=== PATIENT | female | born 1940 | race Caucasian/White ===

== ENCOUNTER 2018-04-10 20:58 | Emergency (ER) | payer MEDICARE, OTHER, SELFPAY ==
[2018-04-10 21:01] VITALS: BP 178/81; PULSE 74; RESP 14; TEMP 36.5; O2SAT 97; BMI 26.5
--- NOTE | 2018-04-10 21:08 | DI.CT.S_ITS ---
PROCEDURE: CT HEAD/BRAIN WO CON INDICATIONS: fall, hit right head: on coumadin. TECHNIQUE: Noncontrast 4.5 mm thick angled axial sections acquired from the foramen magnum to the vertex, with coronal and sagittal reformats. For radiation dose reduction, the following was used: automated exposure control, adjustment of mA and/or kV according to patient size. COMPARISON: None. FINDINGS: Image quality: Excellent. CSF spaces: Basal cisterns are patent. No extra-axial fluid collections. The ventricles are symmetric in size and shape. Brain: No intracranial bleeds or masses. There is cerebral volume loss for age, with resultant ventricular and sulcal prominence. There are periventricular and deep white matter chronic small vessel ischemic changes. There is intracranial internal carotid artery atherosclerosis. Skull and face: Calvarium and visualized facial bones appear intact, without suspicious lesions. Sinuses: Visualized sinuses and mastoids are clear. IMPRESSION: No acute intracranial abnormality. Dictated by: Moo Evans M.D. on 04/10/2018 at 21:31 Approved by: Moo Evans M.D. on 04/10/2018 at 21:32
[2018-04-10] MEDS: TET,DIPH,PERTUSS(ACELL),VAC/PF 0.5 ML SYRINGE IM (21:23)
--- NOTE | 2018-04-10 21:38 | ED_ITS ---
HPI - Head Injury General Chief complaint: Head Injury Stated complaint: FELL DOWN BLACK RIGHT EYE Time Seen by Provider: 04/10/18 21:39 Source: patient Mode of arrival: ambulatory Limitations: no limitations History of Present Illness HPI Narrative: The patient takes Coumadin due to AFib. She was doing gardening about 5:30 p.m., she tripped and fell. She struck her right face on concrete. She was wearing glasses. She has a right periorbital laceration consistent with the lines of her glasses. She also has a right black eye. She has no vision loss or changes. She denies headache, confusion or dizziness. She denies neck pain. She has no peripheral weakness or numbness. She is here due to ongoing bleeding from the laceration site. Related Data Home Medications Medication Instructions Recorded Confirmed warfarin [Coumadin] 7.5 mg PO QDAY #0 11/29/12 03/13/18 [COQ10] #0 02/12/17 03/13/18 calcium carbonate 650 mg PO #0 02/12/17 03/13/18 docusate sodium 100 mg PO BIDP PRN #0 02/12/17 03/13/18 glucosamine sulfate-msm 1 ea PO #0 02/12/17 03/13/18 amlodipine 5 mg-benazepril 10 mg 1 cap PO DAILY 03/13/18 03/13/18 capsule atorvastatin 20 mg tablet 20 mg PO DAILY 03/13/18 03/13/18 carvedilol 12.5 mg tablet 12.5 mg PO BID 03/13/18 03/13/18 hydrocodone 5 mg-acetaminophen 325 1 tab PO ONCE PRN 03/13/18 03/13/18 mg tablet Previous Rx's Medication Instructions Recorded methylprednisolone 4 mg tablets in See Label Instructions PO PER PKG 03/13/18 a dose pack DIR #21 each Allergies Allergy/AdvReac Type Severity Reaction Status Date / Time No Known Drug Allergies Allergy Verified 04/10/18 21:03 Review of Systems Review of Systems All systems reviewed & are unremarkable except as noted in HPI and below Constitutional Denies fever(s), Denies frequent falls, Denies lethargy and Denies weakness Eyes Reports as per HPI, Denies change in vision, Denies eye discharge, Denies irritation and Denies loss of vision ENT Ears, Nose, Mouth, and Throat: Denies change in voice, Denies neck pain and Denies sore throat Cardiovascular Denies chest pain, Denies irregular heart rhythm, Denies lightheadedness, Denies palpitations, Denies dyspnea, Denies dyspnea on exertion and Denies orthopnea Respiratory Denies cough, Denies dyspnea, Denies dyspnea on exertion and Denies wheezing Gastrointestinal Gastrointestinal: Denies nausea and Denies vomiting Musculoskeletal Denies limited range of motion and Denies neck pain Integumentary/Breasts Denies rash and Reports wounds Neurologic Denies frequent falls, Denies loss of vision and Denies weakness Endocrine Denies palpitations Allergic/Immunologic Denies wheezing [facility] Medical History Atrial fibrillation (Acute) Pacemaker (Acute) Social History Smoking Status: Never smoker Exam Initial Vital Signs Initial Vital Signs: Vital Signs Temperature 97.7 F 04/10/18 21:01 Pulse Rate 74 04/10/18 21:01 Respiratory Rate 14 04/10/18 21:01 Blood Pressure 178/81 H 04/10/18 21:01 Pulse Oximetry 97 04/10/18 21:01 Const General: cooperative, healthy appearing and comfortable [facility] Head: normocephalic and other (3 cm left brow/periorbital laceration) Ears: external ears normal and TM's normal bilaterally Nose: external nose normal and No nasal discharge Face and sinus: sinuses nontender, face symmetric, no sinus tenderness and No dry mucous membranes Mouth: oral mucosae normal and moist mucous membranes Teeth and gingiva: dentition normal Throat: tonsils normal and uvula midline Eyes General: appearance normal, both eyes and all related structures Eyelids: eyelids normal Conjunctivae: conjunctivae normal Sclera: sclerae normal Pupils: PERRL EOM: EOM intact bilaterally Neck Neck: normal visual inspection, trachea midline, No lymphadenopathy, No midline deformity and No JVD Lymphatic: No lymphedema Resp Effort & Inspection: normal respiratory effort, able to speak in complete sentences, no respiratory distress and no use of accessory muscles Auscultation: clear to auscultation bilaterally, no rales, no rhonchi and no wheezes Cardio Rate: regular rate Rhythm: regular rhythm Heart Sounds: S1 normal, S2 normal, no click, no gallops, no murmurs and no rubs Pulses: normal peripheral pulses Skin General: no rashes or lesions noted, No jaundice and No petechiae Rashes: no rashes Neuro General: alert, oriented x3 and no focal motor deficits Speech: speech normal Extrem General: normal to inspection, full ROM and other (No trauma.) Procedures Laceration Repair Laceration 1: Technique: other (Dermabond) Technique: other Course Orders Ordered: ED Orders 04/10/18 21:08 CT head/brain wo con Stat 04/10/18 21:30 Basic Metabolic Panel Stat Complete Blood Count MAN DIFF Stat Prothrombin Time INR Stat Discontinued Medications Diphtheria/Tetanus/Acell Pertussis (Adacel) 0.5 ml IM .ONCE ONE Stop: 04/10/18 21:09 Last Admin: 04/10/18 21:23 Dose: 0.5 ml Vital Signs - 8 hr 04/10/18 21:01 Temperature 97.7 F Pulse Rate 74 Respiratory Rate 14 Blood Pressure 178/81 H Pulse Oximetry 97 MDM - Head Injury Medical Records Attestation: I reviewed the patient's medical records. Lab Data Attestation: I reviewed the patient's lab results. Result diagrams: 04/10/18 21:30 04/10/18 21:30 Lab Results 04/10/18 04/10/18 04/10/18 Range/Units 21:30 21:30 21:30 WBC 8.1 (4.5-11.0) X10^3/uL RBC 4.06 (4.0-5.2) X10^6/uL Hgb 12.2 (12.0-16.0) g/dL Hct 36.6 (36-46) % MCV 90.2 (80-100) fL MCH 30.1 (26-34) PG MCHC 33.4 (30-36) % RDW 15.1 H (11.6-14.8) % Plt Count 209 (150-400) X10^3/uL Total Counted 100 Seg Neutrophils % 62.0 (38-70) % Lymphocytes % (Manual) 25.0 (25-45) % Monocytes % (Manual) 8.0 (2-11) % Eosinophils % (Manual) 4.0 (2-4) % Basophils % (Manual) 1.0 (0-1) % Neutrophils # (Manual) 5022 (5559-7589) /uL RBC Morphology Normal morphology PT 36.2 H (10.1-12.7) SECONDS INR 3.4 H (0.9-1.3) Sodium 142 (137-145) mmol/L Potassium 3.6 (3.4-5.1) mmol/L Chloride 102 (98-107) mmol/L Carbon Dioxide 27 (22-32) mmol/L BUN 22 H (7-17) mg/dL Creatinine 0.60 (0.52-1.04) mg/dL Estimated GFR > 60.0 (>60) mL/min BUN/Creatinine Ratio 36.7 H (6-22) Glucose 138 H (80-110) mg/dL Calcium 9.2 (8.4-10.2) mg/dL Imaging Data CT scan - head: Radiologist's impression: No acute intracranial injury. Discharge Plan Departure Patient Disposition: Home, Self-Care Clinical Impression: Laceration of brow without complication, Anticoagulated on Coumadin Instructions: DI for Laceration Repair With Dermabond Activity Restrictions/Additional Instructions: The glue should come off in 5-7 days. When the edges start peeling up, pull the glue off. Do not take her Coumadin dose tonight, have your INR rechecked with your doctor in about 3 days. Return here as needed. Prescriptions: No Action atorvastatin 20 mg tablet 20 mg PO DAILY RF: 0 carvedilol 12.5 mg tablet 12.5 mg PO BID RF: 0 hydrocodone-acetaminophen 5-325 mg tablet 1 tab PO ONCE PRNRF: 0 amlodipine-benazepril 5-10 mg capsule 1 cap PO DAILY RF: 0 methylprednisolone 4 mg tablets,dose pack See Label Instructions PO PER PKG DIR Qty: 21 RF: 0 warfarin [Coumadin] 7.5 MG tablet 7.5 mg PO QDAY Qty: 0 RF: 0 calcium carbonate 650 MG tablet 650 mg PO Qty: 0 RF: 0 docusate sodium 100 MG capsule 100 mg PO BIDP PRNQty: 0 RF: 0 glucosamine sulfate-msm 1 EACH capsule 1 ea PO Qty: 0 RF: 0 [COQ10] Qty: 0 RF: 0
[2018-04-10 21:42] LABS: Hematocrit 36.6 % (36-46); Hemoglobin 12.2 g/dL (12.0-16.0); Mean Corpuscular HGB Conc 33.4 % (30-36); Mean Corpuscular Hemoglobin 30.1 PG (26-34); Mean Corpuscular Volume 90.2 fL (80-100); Platelet Count 209 X10^3/uL (150-400); Red Blood Cell Count 4.06 X10^6/uL (4.0-5.2); Red Cell Distribution Width 15.1 % (11.6-14.8); White Blood Cell Count 8.1 X10^3/uL (4.5-11.0)
[2018-04-10 21:43] LABS: INR 3.4 (0.9-1.3); Prothrombin Time 36.2 SECONDS (10.1-12.7)
[2018-04-10 21:48] LABS: BUN Creatinine Ratio 36.7 (6-22); Blood Urea Nitrogen 22 mg/dL (7-17); Calcium 9.2 mg/dL (8.4-10.2); Carbon Dioxide 27 mmol/L (22-32); Chloride 102 mmol/L (98-107); Estimated Glomerular Filt Rate > 60.0 mL/min (>60); Glucose 138 mg/dL (80-110); HEMOLYSIS < 15 (0-50); Potassium 3.6 mmol/L (3.4-5.1); Sodium 142 mmol/L (137-145)
[2018-04-10 21:52] LABS: Neutrophils Absolute Manual 5022 /uL (3000-5900); RBC Morphology Normal Morphology; Total Cells Counted 100
[2018-04-10 22:00] VITALS: BP 161/71; PULSE 98; RESP 18; O2SAT 96
== END 2018-04-10 22:38 | disposition home or self-care (01) ==
PROVIDERS: Emergency Provider Emergency Medicine; PCP Physician Assistant
DX: S01.112A Laceration without foreign body of left eyelid and periocular area, initial encounter (principal); W01.0XXA Fall on same level from slipping, tripping and stumbling without subsequent striking against object, initial encounter; Z79.01 Long term (current) use of anticoagulants
CPT/HCPCS: 36415; 70450; 80048; 85025; 85610; 99282; 99284; 90715

== ENCOUNTER → 2020-12-09 15:07 | Outpatient (ROUT) | payer MEDICARE, OTHER, SELFPAY ==
[2020-12-09 15:30] LABS: Add Manual Diff / Slide Review NO; Basophils Absolute Auto 100 /uL (0-100); Basophils Percent Auto 1.2 % (0-2); Eosinophils Absolute Auto 200 /uL (0-450); Eosinophils Percent Auto 3.3 % (2-4); Hematocrit 38.3 % (36-46); Hemoglobin 12.4 g/dL (12.0-16.0); Lymphocytes Absolute Auto 1400 /uL (1100-4500); Lymphocytes Percent Auto 19.1 % (25-40); Mean Corpuscular HGB Conc 32.4 % (30-36); Mean Corpuscular Volume 89.6 fL (80-100); Monocytes Absolute Auto 700 /uL (0-900); Monocytes Percent Auto 9.6 % (3-14); Neutrophils Absolute Auto 4800 /uL (1500-7000); Neutrophils Percent Auto 66.8 % (50-75); Platelet Count 221 X10^3/uL (150-400); Red Blood Cell Count 4.27 X10^6/uL (4.0-5.2); Red Cell Distribution Width 14.4 % (11.6-14.8); White Blood Cell Count 7.1 X10^3/uL (4.5-11.0)
[2020-12-09 15:36] LABS: Alanine Aminotransferase 23 IU/L (<35); Albumin 4.2 g/dL (3.5-5.0); Albumin Globulin Ratio 1.6 (1.0-2.8); Alkaline Phosphatase 101 U/L (38-126); Aspartate Aminotransferase 28 IU/L (14-36); BUN Creatinine Ratio 35.7 (6-22); Bilirubin Total 0.3 mg/dL (0.2-1.3); Blood Urea Nitrogen 20 mg/dL (7-17); Calcium 9.6 mg/dL (8.4-10.2); Carbon Dioxide 31 mmol/L (22-32); Chloride 100 mmol/L (98-107); Cholesterol 130 mg/dL (140-199); Estimated Glomerular Filt Rate > 60.0 mL/min (>60); Globulin 2.7 g/dL (1.7-4.1); Glucose 128 mg/dL (80-110); HDL Cholesterol 52 mg/dL (40-60); HEMOLYSIS < 15 (0-50); LDL Cholesterol Calculated 62 mg/dL (<100); Magnesium 2.1 mg/dL (1.6-2.3); Potassium 4.6 mmol/L (3.4-5.1); Sodium 136 mmol/L (137-145); Total Protein 6.9 g/dL (6.3-8.2); Triglycerides 81 mg/dL (35-150)
[2020-12-11 09:54] LABS: Hemoglobin A1C% w Est Avg Glu 6.5 % (4.0-6.0)
== END ==
PROVIDERS: PCP Physician Assistant; Visit Provider Physician Assistant
DX: I10 Essential (primary) hypertension (principal); E78.5 Hyperlipidemia, unspecified
CPT/HCPCS: 80053; 80061; 83036; 83735; 85025

== ENCOUNTER → 2020-12-25 15:22 | Outpatient (CLI) | payer MEDICARE, OTHER, SELFPAY ==
[2020-12-25] MEDS: COVID-19 VACC, Ad26(JANSSEN)/PF 0.5 ML IM (15:46)
== END ==
PROVIDERS: PCP Physician Assistant; Visit Provider Internal Medicine
DX: Z23 Encounter for immunization (principal)
CPT/HCPCS: 0031A; 91303

== ENCOUNTER 2023-01-19 05:59 | Inpatient (IN) | payer MEDICARE, OTHER, SELFPAY ==
[2023-01-19] VITALS (23 sets, daily range): BP systolic 143–200; BP diastolic 62–111; PULSE 68–92; RESP 16–20; TEMP 35.9–37.2; O2SAT 88–97; BMI 28.3
--- NOTE | 2023-01-19 06:12 | ED.GENADULT ---
HPI - General Adult <Kisha Chaudhry MD - Last Filed: 01/20/23 18:06> General Chief complaint: Abdominal Pain Stated complaint: abd. pain/hernia Time Seen by Provider: 01/19/23 06:04 History of Present Illness HPI narrative: 82-year-old woman with a history of atrial fibrillation anticoagulated on warfarin, hypertension, hyperlipidemia who has a long history of an abdominal wall hernia over the last couple of days it has been bothering her more. She notes that after eating [place] food a number of weeks ago it seemed to bother her but then improved. Last night she had some beef stew and after eating she is had increased pain, distention at the abdominal hernia site with nausea which is unusual for her. She describes no headache, fevers or chills. She has not had a bowel movement and describes not passing gas however she describes the absence of flatus as her baseline. Related Data Home Medications Medication Instructions Recorded Confirmed warfarin 7.5 mg tablet (Coumadin) 7.5 mg PO QDAY ##0 11/29/12 01/19/23 [COQ10] 100 mg PO DAILY ##0 02/12/17 01/19/23 calcium carbonate 650 mg calcium 650 mg PO PRN PRN Acid Reflux ##0 02/12/17 01/19/23 (1,625 mg) tablet docusate sodium 100 mg capsule 100 mg PO BIDP PRN Constipation ##0 02/12/17 01/19/23 glucosamine 1 ea PO DAILY ##0 02/12/17 01/19/23 sulfate-methylsulfonylmethane 250 mg-250 mg capsule amlodipine 5 mg-benazepril 10 mg 1 cap PO DAILY 03/13/18 01/19/23 capsule atorvastatin 20 mg tablet 20 mg PO DAILY 03/13/18 01/19/23 carvedilol 12.5 mg tablet 12.5 mg PO BID 03/13/18 01/19/23 benzonatate 100 mg capsule 100 mg PO TID PRN Cough 01/19/23 01/19/23 carboxymethylcellulose sodium 1 % 1 drp ophthalmic (eye) BID PRN Dry 01/19/23 01/19/23 eye liquid gel drops Eyes cholecalciferol (vitamin D3) 25 25 mcg PO DAILY 01/19/23 01/19/23 mcg (1,000 unit) tablet docusate sodium 100 mg capsule 300 mg PO BID 01/19/23 01/19/23 losartan 50 mg tablet 50 mg PO BID 01/19/23 01/19/23 omeprazole 20 mg PO DAILY 01/19/23 01/19/23 omeprazole magnesium 20 mg 20 mg PO DAILY 01/19/23 01/19/23 capsule,delayed release (Acid Cotton Stomper (omeprazole)) vitamins A,C,[id number] 4,296 1 cap PO BID 01/19/23 01/19/23 mcg-226 mg-90 mg capsule (PreserVision AREDS) Allergies Allergy/AdvReac Type Severity Reaction Status Date / Time No Known Drug Allergies Allergy Verified 04/10/18 21:03 Review of Systems <Kisha Chaudhry MD - Last Filed: 01/20/23 18:06> Review of Systems Narrative: Pertinent positive and negative findings as per HPI Patient History <Kisha Chaduhry MD - Last Filed: 01/20/23 18:06> Medical History Abdominal wall hernia Abnormal colonoscopy Adenomatous colon polyp Allergic rhinitis Atrial fibrillation Coronary atherosclerosis GERD (gastroesophageal reflux disease) Heart murmur Hiatal hernia Hypercoagulability due to atrial fibrillation Hyperlipidemia Hypertension Incisional hernia Pacemaker Prediabetes Primary osteoarthritis Subclinical hyperthyroidism Surgical History (Updated 01/19/23 @ 16:54 by Lorne Hdz DO) H/O heart surgery History of tonsillectomy and adenoidectomy Hx of cholecystectomy Family History Mother No pertinent past medical history Father No pertinent past medical history Social History household members: spouse Smoking Status: Never smoker Smoking Status: Never smoker alcohol intake frequency: 0-2 drinks per day Substance Use Type: does not use Exam <Kisha Chaudhry MD - Last Filed: 01/20/23 18:06> Initial Vital Signs Initial Vital Signs: Vital Signs Temperature 97.9 F 01/19/23 06:05 Pulse Rate 86 01/19/23 06:05 Respiratory Rate 18 01/19/23 06:05 Blood Pressure 182/89 H 01/19/23 06:05 Pulse Oximetry 97 01/19/23 06:05 Oxygen Delivery Method Room Air 01/19/23 06:05 General: no acute distress. Able to give a complete and coherent history. Well-nourished well-developed HEENT: Moist mucous membranes, normal sclera with reactive pupils, Respiratory: Lungs are clear to auscultation, no wheezing no rales no rhonchi. Full and symmetrical air movement Cardiac: Regular rate and rhythm no murmurs no bruits Abdomen: Large abdominal wall hernia with firm distention and inability to completely reduce the abdominal wall hernia. Decreased bowel tones. No rebound or guarding Skin: Warm and dry, no rashes Neurologic: Grossly neurologically intact with no obvious asymmetries or abnormalities Extremities: No trauma, well perfused Psych: Cooperative, appropriate insight and affect <Geoff Weber MD - Last Filed: 01/19/23 10:14> Initial Vital Signs Initial Vital Signs: Vital Signs Temperature 97.9 F 01/19/23 06:05 Pulse Rate 86 01/19/23 06:05 Respiratory Rate 18 01/19/23 06:05 Blood Pressure 182/89 H 01/19/23 06:05 Pulse Oximetry 97 01/19/23 06:05 Oxygen Delivery Method Room Air 01/19/23 06:05 Course <Kisha Chaudhry MD - Last Filed: 01/20/23 18:06> Orders Ordered: Acetaminophen (Acetaminophen 325 Mg Tablet) 650 mg PO Q6H PRN PRN Reason: Fever/Mild Pain (1-3) Amlodipine Besylate (Amlodipine 5 Mg Tablet) 5 mg PO DAILY [facility] Last Admin: 01/20/23 08:36 Dose: 5 mg Documented By: EM Artificial Tears (Polyvinyl Alcohol Drops) 1 drops EYE-BOTH BID PRN PRN Reason: Dry Eyes Atorvastatin Calcium (Atorvastatin 20 Mg Tablet) 20 mg PO DAILY [facility] Last Admin: 01/20/23 08:36 Dose: 20 mg Documented By: EM Benzonatate (Benzonatate 100 Mg Capsule) 100 mg PO TID PRN PRN Reason: Cough Carvedilol (Carvedilol 12.5 Mg Tablet) 12.5 mg PO BID [facility] Last Admin: 01/20/23 08:36 Dose: 12.5 mg Documented By: Admin: 01/19/23 20:18 Dose: 12.5 mg Documented By: [facility] Docusate Sodium (Docusate 100 Mg Capsule) 100 mg PO BID PRN PRN Reason: Constipation Docusate Sodium (Docusate 100 Mg Capsule) 300 mg PO BID [facility] Last Admin: 01/20/23 08:35 Dose: 300 mg Documented By: Admin: 01/19/23 20:17 Dose: 300 mg Documented By: [facility] Hydromorphone HCl (Hydromorphone 0.5 Mg Inj) 0.5 mg IV Q2H PRN PRN Reason: Pain, Severe (7-10) Last Admin: 01/20/23 17:26 Dose: 0.5 mg Documented By: MS Lutein (Vit C/E/Zn/Coppr/Lutein/Zeaxan Capsule) 1 cap PO BID [facility] Last Admin: 01/20/23 08:38 Dose: 1 cap Documented By: Admin: 01/19/23 20:17 Dose: 1 cap Documented By: NELLA Naloxone HCl (Naloxone 0.4 Mg/Ml Vial) 0.2 mg IV Q2MIN PRN PRN Reason: Opiate Reversal Ondansetron HCl (Ondansetron 4 Mg/2 Ml Inj) 4 mg IV Q8HR PRN PRN Reason: Nausea And Vomiting Last Admin: 01/20/23 17:26 Dose: 4 mg Documented By: MS Oxycodone HCl (Oxycodone Ir 5 Mg Tablet) 5 mg PO Q3H PRN PRN Reason: Pain, Moderate (4-6) Last Admin: 01/20/23 11:33 Dose: 5 mg Documented By: MS Pantoprazole Sodium (Pantoprazole Dr 40 Mg Tablet) 40 mg PO 0700 [facility] Last Admin: 01/20/23 06:36 Dose: 40 mg Documented By: NELLA Sodium Chloride (Sodium Chloride 0.9% Flush) 10 ml IV PRN PRN PRN Reason: Flush Last Admin: 01/20/23 17:27 Dose: 10 ml Documented By: MS Sodium Chloride (Sodium Chloride 0.9% Flush) 10 ml IV BID [facility] Last Admin: 01/20/23 08:38 Dose: 10 ml Documented By: Admin: 01/19/23 20:18 Dose: 10 ml Documented By: [facility] Vitamin D (Cholecalciferol (Vitamin D3) 1,000 Unit Tablet) 1,000 unit PO DAILY [facility] Last Admin: 01/20/23 08:36 Dose: 1,000 unit Documented By: EM Discontinued Medications Amlodipine Besylate (Amlodipine 5 Mg Tablet) 5 mg PO NOW ONE Stop: 01/19/23 09:53 Last Admin: 01/19/23 09:59 Dose: 5 mg Documented By: JOSE ALBERTO Carvedilol (Carvedilol 12.5 Mg Tablet) 12.5 mg PO NOW ONE Stop: 01/19/23 09:53 Last Admin: 01/19/23 09:59 Dose: 12.5 mg Documented By: JOSE ALBERTO Hydromorphone HCl (Hydromorphone 0.5 Mg Inj) 0.5 mg IV Q15MIN PRN PRN Reason: Pain, Last Admin: 01/19/23 06:34 Dose: 0.5 mg Documented By: DASH Sodium Chloride (Normal Saline 0.9%) 1,000 mls @ 150 mls/hr IV CONT TER[facility] Last Infusion: 01/19/23 07:21 Dose: 0 mls/hr Documented By: Admin: 01/19/23 06:34 Dose: 150 mls/hr Documented By: DASH Losartan Potassium (Losartan 50 Mg Tablet) 50 mg PO BID [facility] Non-Formulary Medication (Glucosamine Sulfate-Msm) 1 each PO DAILY [facility] Ondansetron HCl (Ondansetron 4 Mg/2 Ml Inj) 4 mg IV NOW ONE Stop: 01/19/23 06:18 Last Admin: 01/19/23 06:33 Dose: 4 mg Documented By: DASH Phytonadione (Phytonadione (Vit K1) 10 Mg/Ml Amp) 10 mg SUBCUT NOW ONE Stop: 01/19/23 09:23 Last Admin: 01/19/23 09:50 Dose: 10 mg Documented By: JOSE ALBERTO Phytonadione (Phytonadione (Vit K1) 5 Mg Tablet) 5 mg PO NOW ONE Stop: 01/20/23 08:38 Last Admin: 01/20/23 11:33 Dose: 5 mg Documented By: Vital Signs Vital signs: Vital Signs - 8 hr 01/19/23 06:05 01/19/23 06:06 01/19/23 06:38 Temperature 97.9 F Pulse Rate 86 92 H 87 Respiratory Rate 18 18 Blood Pressure 182/89 H Pulse Oximetry 97 94 95 Oxygen Delivery Method Room Air 01/19/23 06:39 01/19/23 06:39 01/19/23 07:00 Temperature Pulse Rate 85 Respiratory Rate 18 Blood Pressure 167/93 H 159/86 H Pulse Oximetry 94 Oxygen Delivery Method 01/19/23 07:00 01/19/23 07:31 01/19/23 07:34 Temperature Pulse Rate 74 80 Respiratory Rate Blood Pressure Pulse Oximetry 94 88 L 91 Oxygen Delivery Method 01/19/23 07:34 Temperature Pulse Rate 82 Respiratory Rate 18 Blood Pressure 192/98 H Pulse Oximetry 93 Oxygen Delivery Method Room Air <Geoff Weber MD - Last Filed: 01/19/23 10:14> Course Course Narrative: Care was assumed from Dr. Patterson at change of shift. Patient is status post open cholecystectomy. At sometime following the operation she developed a ventral hernia, generally small and of no concern. Over last couple days the hernia became large. She came in last night and was evaluated. The doctor could not reduce the hernia. CT revealed a vent hernia with loops of bowel and an obstruction. She is ongoing abdominal pain. I was able to reduce the hernia. The hernia quickly returned, but was again reducible. She is anticoagulated with an INR of 3.8. Monitor shows AFib. I consulted with Dr. Gaytan, on-call surgery. The patient is anticoagulated, the hernia is needing ongoing attention. She agreed to schedule surgery, but requested admission to the hospitalist for management of her medical issues. Dr. Hdz, hospitalist was consulted. He started vitamin K and will coordinate with Dr. Gaytan for planning surgery. The patient's blood pressure is 200 systolic. Now that the hernia is reduced, nausea is improving. I gave her her standard dose of Norvasc and Coreg._Brennan DAVIS01/19/23 @1003. Orders Ordered: Acetaminophen (Acetaminophen 325 Mg Tablet) 650 mg PO Q6H PRN PRN Reason: Fever/Mild Pain (1-3) Amlodipine Besylate (Amlodipine 5 Mg Tablet) 5 mg PO DAILY [facility] Last Admin: 01/20/23 08:36 Dose: 5 mg Documented By: EM Artificial Tears (Polyvinyl Alcohol Drops) 1 drops EYE-BOTH BID PRN PRN Reason: Dry Eyes Atorvastatin Calcium (Atorvastatin 20 Mg Tablet) 20 mg PO DAILY [facility] Last Admin: 01/20/23 08:36 Dose: 20 mg Documented By: EM Benzonatate (Benzonatate 100 Mg Capsule) 100 mg PO TID PRN PRN Reason: Cough Carvedilol (Carvedilol 12.5 Mg Tablet) 12.5 mg PO BID [facility] Last Admin: 01/20/23 08:36 Dose: 12.5 mg Documented By: Admin: 01/19/23 20:18 Dose: 12.5 mg Documented By: [facility] Docusate Sodium (Docusate 100 Mg Capsule) 100 mg PO BID PRN PRN Reason: Constipation Docusate Sodium (Docusate 100 Mg Capsule) 300 mg PO BID [facility] Last Admin: 01/20/23 08:35 Dose: 300 mg Documented By: Admin: 01/19/23 20:17 Dose: 300 mg Documented By: [facility] Hydromorphone HCl (Hydromorphone 0.5 Mg Inj) 0.5 mg IV Q2H PRN PRN Reason: Pain, Severe (7-10) Last Admin: 01/20/23 17:26 Dose: 0.5 mg Documented By: MS Lutein (Vit C/E/Zn/Coppr/Lutein/Zeaxan Capsule) 1 cap PO BID [facility] Last Admin: 01/20/23 08:38 Dose: 1 cap Documented By: Admin: 01/19/23 20:17 Dose: 1 cap Documented By: [facility] Naloxone HCl (Naloxone 0.4 Mg/Ml Vial) 0.2 mg IV Q2MIN PRN PRN Reason: Opiate Reversal Ondansetron HCl (Ondansetron 4 Mg/2 Ml Inj) 4 mg IV Q8HR PRN PRN Reason: Nausea And Vomiting Last Admin: 01/20/23 17:26 Dose: 4 mg Documented By: MS Oxycodone HCl (Oxycodone Ir 5 Mg Tablet) 5 mg PO Q3H PRN PRN Reason: Pain, Moderate (4-6) Last Admin: 01/20/23 11:33 Dose: 5 mg Documented By: MS Pantoprazole Sodium (Pantoprazole Dr 40 Mg Tablet) 40 mg PO 0700 [facility] Last Admin: 01/20/23 06:36 Dose: 40 mg Documented By: [facility] Sodium Chloride (Sodium Chloride 0.9% Flush) 10 ml IV PRN PRN PRN Reason: Flush Last Admin: 01/20/23 17:27 Dose: 10 ml Documented By: MS Sodium Chloride (Sodium Chloride 0.9% Flush) 10 ml IV BID [facility] Last Admin: 01/20/23 08:38 Dose: 10 ml Documented By: Admin: 01/19/23 20:18 Dose: 10 ml Documented By: NELLA Vitamin D (Cholecalciferol (Vitamin D3) 1,000 Unit Tablet) 1,000 unit PO DAILY [facility] Last Admin: 01/20/23 08:36 Dose: 1,000 unit Documented By: [place] Discontinued Medications Amlodipine Besylate (Amlodipine 5 Mg Tablet) 5 mg PO NOW ONE Stop: 01/19/23 09:53 Last Admin: 01/19/23 09:59 Dose: 5 mg Documented By: JOSE ALBERTO Carvedilol (Carvedilol 12.5 Mg Tablet) 12.5 mg PO NOW ONE Stop: 01/19/23 09:53 Last Admin: 01/19/23 09:59 Dose: 12.5 mg Documented By: JOSE ALBERTO Hydromorphone HCl (Hydromorphone 0.5 Mg Inj) 0.5 mg IV Q15MIN PRN PRN Reason: Pain, Last Admin: 01/19/23 06:34 Dose: 0.5 mg Documented By: DASH Sodium Chloride (Normal Saline 0.9%) 1,000 mls @ 150 mls/hr IV CONT TERESO Last Infusion: 01/19/23 07:21 Dose: 0 mls/hr Documented By: Admin: 01/19/23 06:34 Dose: 150 mls/hr Documented By: DASH Losartan Potassium (Losartan 50 Mg Tablet) 50 mg PO BID [facility] Non-Formulary Medication (Glucosamine Sulfate-Msm) 1 each PO DAILY [facility] Ondansetron HCl (Ondansetron 4 Mg/2 Ml Inj) 4 mg IV NOW ONE Stop: 01/19/23 06:18 Last Admin: 01/19/23 06:33 Dose: 4 mg Documented By: DASH Phytonadione (Phytonadione (Vit K1) 10 Mg/Ml Amp) 10 mg SUBCUT NOW ONE Stop: 01/19/23 09:23 Last Admin: 01/19/23 09:50 Dose: 10 mg Documented By: JOSE ALBERTO Phytonadione (Phytonadione (Vit K1) 5 Mg Tablet) 5 mg PO NOW ONE Stop: 01/20/23 08:38 Last Admin: 01/20/23 11:33 Dose: 5 mg Documented By: Vital Signs Vital signs: Vital Signs - 8 hr 01/19/23 06:05 01/19/23 06:06 01/19/23 06:38 Temperature 97.9 F Pulse Rate 86 92 H 87 Respiratory Rate 18 18 Blood Pressure 182/89 H Pulse Oximetry 97 94 95 Oxygen Delivery Method Room Air 01/19/23 06:39 01/19/23 06:39 01/19/23 07:00 Temperature Pulse Rate 85 Respiratory Rate 18 Blood Pressure 167/93 H 159/86 H Pulse Oximetry 94 Oxygen Delivery Method 01/19/23 07:00 01/19/23 07:31 01/19/23 07:34 Temperature Pulse Rate 74 80 Respiratory Rate Blood Pressure Pulse Oximetry 94 88 L 91 Oxygen Delivery Method 01/19/23 07:34 Temperature Pulse Rate 82 Respiratory Rate 18 Blood Pressure 192/98 H Pulse Oximetry 93 Oxygen Delivery Method Room Air Medical Decision Making <Kisha Chaudhry MD - Last Filed: 01/20/23 18:06> Lab Data 01/20/23 05:35 01/20/23 05:35 Labs: Lab Results 01/19/23 01/19/23 01/19/23 Range/Units 06:20 06:20 06:20 WBC 10.5 (4.5-11.0) X10^3/uL RBC 4.86 (4.0-5.2) X10^6/uL Hgb 14.3 (12.0-16.0) g/dL Hct 43.5 (36-46) % MCV 89.6 (80-100) fL MCH 29.5 (26-34) PG MCHC 32.9 (30-36) % RDW 15.2 H (11.6-14.8) % Plt Count 233 (150-400) X10^3/uL Neut % (Auto) 80.3 H (50-75) % Lymph % (Auto) 12.4 L (25-40) % Jones % (Auto) 6.4 (3-14) % Eos % (Auto) 0.4 L (2-4) % Baso % (Auto) 0.5 (0-2) % Neut # (Auto) 8400 H (3382-7087) /uL Lymph # (Auto) 1300 (2501-5976) /uL Jones # (Auto) 700 (0-900) /uL Eos # (Auto) 0 (0-450) /uL Baso # (Auto) 100 (0-100) /uL PT (10.1-12.7) SECONDS INR (0.9-1.3) Sodium 139 (137-145) mmol/L Potassium 3.8 (3.4-5.1) mmol/L Chloride 90 L (98-107) mmol/L Carbon Dioxide 40 H* (22-32) mmol/L BUN 22 H (7-17) mg/dL Creatinine 0.58 (0.52-1.04) mg/dL Estimated GFR > 60 (>60) mL/min BUN/Creatinine Ratio 37.9 H (6-22) Glucose 169 H (80-110) mg/dL Lactate 1.5 (0.7-2.1) mmol/L Calcium 9.7 (8.4-10.2) mg/dL Total Bilirubin 0.7 (0.2-1.3) mg/dL AST 29 (14-36) IU/L ALT 22 (<35) IU/L Alkaline Phosphatase 92 (38-126) U/L Total Protein 8.2 (6.3-8.2) g/dL Albumin 4.6 (3.5-5.0) g/dL Globulin 3.6 (1.7-4.1) g/dL Albumin/Globulin Ratio 1.3 (1.0-2.8) Urine RBC (0-5/HPF) Urine WBC (0-5/HPF) Ur Squamous Epith Cells (0-5/HPF) Amorphous Sediment Urine Bacteria (None) Ur Culture Indicated? SARS-CoV-2 (PCR) (Negative) 01/19/23 01/19/23 01/19/23 Range/Units 06:20 07:39 08:52 WBC (4.5-11.0) X10^3/uL RBC (4.0-5.2) X10^6/uL Hgb (12.0-16.0) g/dL Hct (36-46) % MCV (80-100) fL MCH (26-34) PG MCHC (30-36) % RDW (11.6-14.8) % Plt Count (150-400) X10^3/uL Neut % (Auto) (50-75) % Lymph % (Auto) (25-40) % Jones % (Auto) (3-14) % Eos % (Auto) (2-4) % Baso % (Auto) (0-2) % Neut # (Auto) (0425-7647) /uL Lymph # (Auto) (1264-8288) /uL Jones # (Auto) (0-900) /uL Eos # (Auto) (0-450) /uL Baso # (Auto) (0-100) /uL PT 44.3 H (10.1-12.7) SECONDS INR 3.8 H (0.9-1.3) Sodium (137-145) mmol/L Potassium (3.4-5.1) mmol/L Chloride (98-107) mmol/L Carbon Dioxide (22-32) mmol/L BUN (7-17) mg/dL Creatinine (0.52-1.04) mg/dL Estimated GFR (>60) mL/min BUN/Creatinine Ratio (6-22) Glucose (80-110) mg/dL Lactate (0.7-2.1) mmol/L Calcium (8.4-10.2) mg/dL Total Bilirubin (0.2-1.3) mg/dL AST (14-36) IU/L ALT (<35) IU/L Alkaline Phosphatase (38-126) U/L Total Protein (6.3-8.2) g/dL Albumin (3.5-5.0) g/dL Globulin (1.7-4.1) g/dL Albumin/Globulin Ratio (1.0-2.8) Urine RBC 0-1/hpf (0-5/HPF) Urine WBC 0-1/hpf (0-5/HPF) Ur Squamous Epith Cells None seen (0-5/HPF) Amorphous Sediment 2+ Urine Bacteria Occasional (0-1) (None) Ur Culture Indicated? Cult not indicated SARS-CoV-2 (PCR) Negative (Negative) Urine Dip Bedside Urine Glucose Negative Bedside Urine Bilirubin - Negative Bedside Urine Ketone - Negative Urine Specific [place] 1.010 Bedside Urine Occult Blood +/- Bedside Urine pH 8.5 Bedside Urine Protein + 30 Bedside Urine Urobilinogen - Negative Bedside Urine Nitrite - Negative Bedside Urine Leukocytes - Negative Esterase Point of care testing: Urine Dip Bedside Urine Glucose Negative Bedside Urine Bilirubin - Negative Bedside Urine Ketone - Negative Urine Specific [place] 1.010 Bedside Urine Occult Blood +/- Bedside Urine pH 8.5 Bedside Urine Protein + 30 Bedside Urine Urobilinogen - Negative Bedside Urine Nitrite - Negative Bedside Urine Leukocytes - Negative Esterase MDM Narrative Medical decision making narrative: CC: Abdominal pain at known abdominal wall hernia site This is a new problem uncertain prognosis Complicating co-morbidities: Anticoagulation secondary to atrial fibrillation, hypertension hyperlipidemia Data collected from: patient, and Social determinants of health that may influence the patients condition: Medical records reviewed: Prior urgent care and ER notes from 2018 are reviewed. No primary care notes are available. Primary care doctors at the [facility]. Differential considered: Bowel obstruction, incarcerated hernia, ischemic bowel Exam documented above, pertinent findings include: Large abdominal wall hernia with firm and tender protrusion that is not able to be reduced on exam. She does not have an immediate surgical abdomen on palpation Lab Test results independently reviewed as above. Pertinent findings: Independently reviewed EKG as above Imaging studies independently reviewed: Consultations: Treatments: Re-evaluations: Discussion: <Geoff Weber MD - Last Filed: 01/19/23 10:14> Lab Data Labs: Lab Results 01/19/23 01/19/23 01/19/23 Range/Units 06:20 06:20 06:20 WBC 10.5 (4.5-11.0) X10^3/uL RBC 4.86 (4.0-5.2) X10^6/uL Hgb 14.3 (12.0-16.0) g/dL Hct 43.5 (36-46) % MCV 89.6 (80-100) fL MCH 29.5 (26-34) PG MCHC 32.9 (30-36) % RDW 15.2 H (11.6-14.8) % Plt Count 233 (150-400) X10^3/uL Neut % (Auto) 80.3 H (50-75) % Lymph % (Auto) 12.4 L (25-40) % Jones % (Auto) 6.4 (3-14) % Eos % (Auto) 0.4 L (2-4) % Baso % (Auto) 0.5 (0-2) % Neut # (Auto) 8400 H (5398-6772) /uL Lymph # (Auto) 1300 (3652-6047) /uL Jones # (Auto) 700 (0-900) /uL Eos # (Auto) 0 (0-450) /uL Baso # (Auto) 100 (0-100) /uL PT (10.1-12.7) SECONDS INR (0.9-1.3) Sodium 139 (137-145) mmol/L Potassium 3.8 (3.4-5.1) mmol/L Chloride 90 L (98-107) mmol/L Carbon Dioxide 40 H* (22-32) mmol/L BUN 22 H (7-17) mg/dL Creatinine 0.58 (0.52-1.04) mg/dL Estimated GFR > 60 (>60) mL/min BUN/Creatinine Ratio 37.9 H (6-22) Glucose 169 H (80-110) mg/dL Lactate 1.5 (0.7-2.1) mmol/L Calcium 9.7 (8.4-10.2) mg/dL Total Bilirubin 0.7 (0.2-1.3) mg/dL AST 29 (14-36) IU/L ALT 22 (<35) IU/L Alkaline Phosphatase 92 (38-126) U/L Total Protein 8.2 (6.3-8.2) g/dL Albumin 4.6 (3.5-5.0) g/dL Globulin 3.6 (1.7-4.1) g/dL Albumin/Globulin Ratio 1.3 (1.0-2.8) Urine RBC (0-5/HPF) Urine WBC (0-5/HPF) Ur Squamous Epith Cells (0-5/HPF) Amorphous Sediment Urine Bacteria (None) Ur Culture Indicated? SARS-CoV-2 (PCR) (Negative) 01/19/23 01/19/23 01/19/23 Range/Units 06:20 07:39 08:52 WBC (4.5-11.0) X10^3/uL RBC (4.0-5.2) X10^6/uL Hgb (12.0-16.0) g/dL Hct (36-46) % MCV (80-100) fL MCH (26-34) PG MCHC (30-36) % RDW (11.6-14.8) % Plt Count (150-400) X10^3/uL Neut % (Auto) (50-75) % Lymph % (Auto) (25-40) % Jones % (Auto) (3-14) % Eos % (Auto) (2-4) % Baso % (Auto) (0-2) % Neut # (Auto) (6336-2152) /uL Lymph # (Auto) (1679-1736) /uL Jones # (Auto) (0-900) /uL Eos # (Auto) (0-450) /uL Baso # (Auto) (0-100) /uL PT 44.3 H (10.1-12.7) SECONDS INR 3.8 H (0.9-1.3) Sodium (137-145) mmol/L Potassium (3.4-5.1) mmol/L Chloride (98-107) mmol/L Carbon Dioxide (22-32) mmol/L BUN (7-17) mg/dL Creatinine (0.52-1.04) mg/dL Estimated GFR (>60) mL/min BUN/Creatinine Ratio (6-22) Glucose (80-110) mg/dL Lactate (0.7-2.1) mmol/L Calcium (8.4-10.2) mg/dL Total Bilirubin (0.2-1.3) mg/dL AST (14-36) IU/L ALT (<35) IU/L Alkaline Phosphatase (38-126) U/L Total Protein (6.3-8.2) g/dL Albumin (3.5-5.0) g/dL Globulin (1.7-4.1) g/dL Albumin/Globulin Ratio (1.0-2.8) Urine RBC 0-1/hpf (0-5/HPF) Urine WBC 0-1/hpf (0-5/HPF) Ur Squamous Epith Cells None seen (0-5/HPF) Amorphous Sediment 2+ Urine Bacteria Occasional (0-1) (None) Ur Culture Indicated? Cult not indicated SARS-CoV-2 (PCR) Negative (Negative) Urine Dip Bedside Urine Glucose Negative Bedside Urine Bilirubin - Negative Bedside Urine Ketone - Negative Urine Specific [place] 1.010 Bedside Urine Occult Blood +/- Bedside Urine pH 8.5 Bedside Urine Protein + 30 Bedside Urine Urobilinogen - Negative Bedside Urine Nitrite - Negative Bedside Urine Leukocytes - Negative Esterase Point of care testing: Urine Dip Bedside Urine Glucose Negative Bedside Urine Bilirubin - Negative Bedside Urine Ketone - Negative Urine Specific [place] 1.010 Bedside Urine Occult Blood +/- Bedside Urine pH 8.5 Bedside Urine Protein + 30 Bedside Urine Urobilinogen - Negative Bedside Urine Nitrite - Negative Bedside Urine Leukocytes - Negative Esterase Imaging Data CT scan - abdomen/pelvis: Radiologist's Impression: 1. There is a large ventral abdominal wall defect through which loops of small enlarged bowel have entered a large hernia sac. ? 2. There is a proximal small bowel obstruction secondary to entrance of a loop into the hernia sac.? The bowel loops within the hernia sac are not inflamed or dilated. ? 3. Extensive sigmoid diverticulosis without evidence of diverticulitis. ? 4. Incidental note made of the presence of a mobile cecum.? <Geoff Weber MD - Last Filed: 01/19/23 10:14> Critical Care Time Critical Care Time: Yes Total Critical Care Time: 50 Attestation: time includes initial assessment and repeat assessment of the patient. Discharge Plan Departure Patient Disposition: Admitted As Inpatient Clinical Impression: Hernia, ventral, Atrial fibrillation, Chronic anticoagulation, Hypertension Admit Date/Time: 01/19/23 09:36 Admit Provider: Lorne Hdz
[2023-01-19] MEDS: ONDANSETRON 4 MG/2 ML INJ IV (06:33)
[2023-01-19 06:34] LABS: Add Manual Diff / Slide Review NO; Basophils Absolute Auto 100 /uL (0-100); Basophils Percent Auto 0.5 % (0-2); Eosinophils Absolute Auto 0 /uL (0-450); Eosinophils Percent Auto 0.4 % (2-4); Hematocrit 43.5 % (36-46); Hemoglobin 14.3 g/dL (12.0-16.0); Lymphocytes Absolute Auto 1300 /uL (1100-4500); Lymphocytes Percent Auto 12.4 % (25-40); Mean Corpuscular HGB Conc 32.9 % (30-36); Mean Corpuscular Hemoglobin 29.5 PG (26-34); Mean Corpuscular Volume 89.6 fL (80-100); Monocytes Absolute Auto 700 /uL (0-900); Monocytes Percent Auto 6.4 % (3-14); Neutrophils Absolute Auto 8400 /uL (1500-7000); Neutrophils Percent Auto 80.3 % (50-75); Platelet Count 233 X10^3/uL (150-400); Red Blood Cell Count 4.86 X10^6/uL (4.0-5.2); Red Cell Distribution Width 15.2 % (11.6-14.8); White Blood Cell Count 10.5 X10^3/uL (4.5-11.0)
[2023-01-19] MEDS: SODIUM CHLORIDE 0.9% 1,000 ML 150 ML IV (06:34)
[2023-01-19] MEDS: HYDROMORPHONE 0.5 MG INJ IV (06:34)
[2023-01-19 06:39] LABS: INR 3.8 (0.9-1.3); Prothrombin Time 44.3 SECONDS (10.1-12.7)
[2023-01-19 06:44] LABS: Lactate (Lactic Acid) 1.5 mmol/L (0.7-2.1)
[2023-01-19 06:45] LABS: Alanine Aminotransferase 22 IU/L (<35); Albumin 4.6 g/dL (3.5-5.0); Albumin Globulin Ratio 1.3 (1.0-2.8); Alkaline Phosphatase 92 U/L (38-126); Aspartate Aminotransferase 29 IU/L (14-36); BUN Creatinine Ratio 37.9 (6-22); Bilirubin Total 0.7 mg/dL (0.2-1.3); Blood Urea Nitrogen 22 mg/dL (7-17); Calcium 9.7 mg/dL (8.4-10.2); Chloride 90 mmol/L (98-107); Estimated Glomerular Filt Rate > 60 mL/min (>60); Globulin 3.6 g/dL (1.7-4.1); Glucose 169 mg/dL (80-110); HEMOLYSIS 33 (0-50); Potassium 3.8 mmol/L (3.4-5.1); Sodium 139 mmol/L (137-145); Total Protein 8.2 g/dL (6.3-8.2)
[2023-01-19 06:58] LABS: Carbon Dioxide 40 mmol/L (22-32)
--- NOTE | 2023-01-19 07:34 | DI.CT.S_ITS ---
PROCEDURE: CT ABDOMEN PELVIS W CON INDICATIONS: increased pain from abdominal wall hernia TECHNIQUE: After the administration of intravenous contrast, axial sections acquired from the lung bases to the pubic symphysis. Coronal and sagittal reformats were performed. For radiation dose reduction, the following was used: automated exposure control, adjustment of mA and/or kV according to patient size. COMPARISON: None. FINDINGS: Image quality: Excellent. Lung bases: Unremarkable. Heart: Pacemaker, cardiomegaly. ABDOMEN: Liver: Unremarkable. Gallbladder: Surgically absent Biliary ducts: Unremarkable. Pancreas: Unremarkable. Spleen: Normal size. Multiple tiny calcified granulomata. Adrenal Glands: Unremarkable. Kidneys and Ureters: Unremarkable. Stomach and Bowel: There is a small bowel obstruction secondary to entrance of small bowel into a ventral abdominal wall hernia. There is both small bowel and colon in the abdominal wall hernia. The bowel contents within the hernia sac do not appear inflamed or dilated. The abdominal wall defect measures approximately 4.2 x 5.0 cm. The obstructed proximal small bowel loops measure up to 3.9 cm. Extensive sigmoid diverticulosis without evidence of diverticulitis. Diffuse colonic diverticulosis. Mobile cecum. Peritoneum: No abnormal intraperitoneal fluid. No free air. Ventral Wall: See above. Ventral hernia containing bowel. The abdominal wall defect measures 4.2 x 5.0 cm. Abdominal Nodes: No retroperitoneal or mesenteric adenopathy by size criteria. Vessels: Aorta and inferior vena cava are normal in size. PELVIS: Pelvic Organs: Unremarkable. Bladder: Unremarkable. Pelvic Nodes: No enlarged lymph nodes. Miscellaneous: No hernias are seen. Bones: Lumbar degenerative change. No lytic or blastic bony lesions. No compression fractures. IMPRESSION: 1. There is a large ventral abdominal wall defect through which loops of small enlarged bowel have entered a large hernia sac. 2. There is a proximal small bowel obstruction secondary to entrance of a loop into the hernia sac. The bowel loops within the hernia sac are not inflamed or dilated. 3. Extensive sigmoid diverticulosis without evidence of diverticulitis. 4. Incidental note made of the presence of a mobile cecum. Dictated by: En Nunez M.D. on 01/19/2023 at 8:08 Approved by: En Nunez M.D. on 01/19/2023 at 8:13
[2023-01-19 08:08] LABS: COVID19 -Nasal RAPID Negative (Negative)
[2023-01-19 09:46] LABS: Amorphous Sediment Urine 2+; Bacteria Urine Occasional (0-1); Culture Indicated Urine Cult Not Indicated; RBC Urine 0-1/HPF (0-5/HPF); Squamous Epithelial Cell Urine None Seen (0-5/HPF); WBC Urine 0-1/HPF (0-5/HPF)
[2023-01-19] MEDS: PHYTONADIONE (VIT K1) 10 MG/ML AMP SUBCUT (09:50)
[2023-01-19] MEDS: carvediloL 12.5 MG TABLET PO ×2 (09:59→20:18)
[2023-01-19] MEDS: AMLODIPINE 5 MG TABLET PO (09:59)
--- NOTE | 2023-01-19 10:55 | P.CONS_ITS ---
History of Present Illness Consult details Date Patient Seen: 01/19/23 Time Patient Seen: 10:55 Chief complaint: abd. 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 Is chronic with sudden onset of focal pain and nausea. Seen on CT as incarcerated with SBO (also mobile cecum). Reduced in ED but does not stay reduced. On chronic anticoagulation for afib and has pacemaker. Meds Home Medications and Allergies Home Medications Medication Instructions Recorded Confirmed Type warfarin 7.5 mg tablet (Coumadin) 7.5 mg PO QDAY ##0 11/29/12 03/13/18 History [COQ10] ##0 02/12/17 03/13/18 History calcium carbonate 650 mg calcium 650 mg PO ##0 02/12/17 03/13/18 History (1,625 mg) tablet docusate sodium 100 mg capsule 100 mg PO BIDP PRN ##0 02/12/17 03/13/18 History glucosamine 1 ea PO ##0 02/12/17 03/13/18 History sulfate-methylsulfonylmethane 250 mg-250 mg capsule amlodipine 5 mg-benazepril 10 mg 1 cap PO DAILY 03/13/18 03/13/18 History capsule atorvastatin 20 mg tablet 20 mg PO DAILY 03/13/18 03/13/18 History carvedilol 12.5 mg tablet 12.5 mg PO BID 03/13/18 03/13/18 History hydrocodone 5 mg-acetaminophen 325 1 tab PO ONCE PRN 03/13/18 03/13/18 History mg tablet methylprednisolone 4 mg tablets in See Rx Instructions PO PER PKG DIR 03/13/18 Rx a dose pack #21 ea Allergies Allergy/AdvReac Type Severity Reaction Status Date / Time No Known Drug Allergies Allergy Verified 04/10/18 21:03 Review of Systems Review of Systems ROS: Yes All systems reviewed with the patient and are negative except as otherwise documented Exam Vital Signs (past 8 hours): - 01/19/23 06:05 01/19/23 06:06 01/19/23 06:38 Temperature 97.9 F Pulse Rate 86 92 H 87 Respiratory Rate 18 18 Blood Pressure 182/89 H Pulse Oximetry 97 94 95 Oxygen Delivery Method Room Air 01/19/23 06:39 01/19/23 06:39 01/19/23 07:00 Temperature Pulse Rate 85 Respiratory Rate 18 Blood Pressure 167/93 H 159/86 H Pulse Oximetry 94 Oxygen Delivery Method 01/19/23 07:00 01/19/23 07:31 01/19/23 07:34 Temperature Pulse Rate 74 80 Respiratory Rate Blood Pressure Pulse Oximetry 94 88 L 91 Oxygen Delivery Method 01/19/23 07:34 01/19/23 09:59 01/19/23 08:00 Temperature Pulse Rate 82 85 Respiratory Rate 18 Blood Pressure 192/98 H 200/90 H 169/95 H Pulse Oximetry 93 Oxygen Delivery Method Room Air 01/19/23 08:00 01/19/23 08:30 01/19/23 08:30 Temperature Pulse Rate 81 84 Respiratory Rate 20 20 Blood Pressure 171/111 H Pulse Oximetry 92 91 Oxygen Delivery Method 01/19/23 08:57 01/19/23 08:57 01/19/23 09:00 Temperature Pulse Rate 84 Respiratory Rate 20 Blood Pressure 184/93 H 157/83 H Pulse Oximetry 93 Oxygen Delivery Method 01/19/23 09:00 01/19/23 09:30 01/19/23 09:31 Temperature Pulse Rate 86 87 Respiratory Rate 20 20 Blood Pressure 200/90 H Pulse Oximetry 93 95 Oxygen Delivery Method 01/19/23 10:00 01/19/23 10:01 01/19/23 10:01 Temperature Pulse Rate 82 74 Respiratory Rate 20 20 Blood Pressure 175/77 H Pulse Oximetry 94 94 Oxygen Delivery Method Oxygen Delivery Method Room Air Const General: cooperative and comfortable Nutritional Appearance: well nourished [facility] Head: normal to inspection, normocephalic and atraumatic Eyes Sclera: sclerae normal Neck Neck: trachea midline Chest Chest: normal inspection of the chest Other: pacemaker in place Resp Effort & Inspection: normal respiratory effort and able to speak in complete sentences Cardio Rate: regular rate Rhythm: abnormal rhythm GI Inspection: visible herniation Palpation: soft Other: Hernia is visible from across the room, soft and reduceable. Skin General: atrophy Neuro General: patient alert, patient awake and patient oriented x3 Psych Mental Status: mental status grossly normal Judgment: judgment good Objective Labs 01/19/23 06:20 01/19/23 06:20 Labs: Laboratory Results - last 24 hr 01/19/23 01/19/23 01/19/23 06:20 06:20 06:20 WBC 10.5 RBC 4.86 Hgb 14.3 Hct 43.5 MCV 89.6 MCH 29.5 MCHC 32.9 RDW 15.2 H Plt Count 233 Neut % (Auto) 80.3 H Lymph % (Auto) 12.4 L [place] % (Auto) 6.4 Eos % (Auto) 0.4 L Baso % (Auto) 0.5 Neut # (Auto) 8400 H Lymph # (Auto) 1300 [place] # (Auto) 700 Eos # (Auto) 0 Baso # (Auto) 100 PT INR Sodium 139 Potassium 3.8 Chloride 90 L Carbon Dioxide 40 H* BUN 22 H Creatinine 0.58 Estimated GFR > 60 BUN/Creatinine Ratio 37.9 H Glucose 169 H Lactate 1.5 Calcium 9.7 Total Bilirubin 0.7 AST 29 ALT 22 Alkaline Phosphatase 92 Total Protein 8.2 Albumin 4.6 Globulin 3.6 Albumin/Globulin Ratio 1.3 Urine RBC Urine WBC Ur Squamous Epith Cells Amorphous Sediment Urine Bacteria Ur Culture Indicated? SARS-CoV-2 (PCR) 01/19/23 01/19/23 01/19/23 06:20 07:39 08:52 WBC RBC Hgb Hct MCV MCH MCHC RDW Plt Count Neut % (Auto) Lymph % (Auto) [place] % (Auto) Eos % (Auto) Baso % (Auto) Neut # (Auto) Lymph # (Auto) [place] # (Auto) Eos # (Auto) Baso # (Auto) PT 44.3 H INR 3.8 H Sodium Potassium Chloride Carbon Dioxide BUN Creatinine Estimated GFR BUN/Creatinine Ratio Glucose Lactate Calcium Total Bilirubin AST ALT Alkaline Phosphatase Total Protein Albumin Globulin Albumin/Globulin Ratio Urine RBC 0-1/hpf Urine WBC 0-1/hpf Ur Squamous Epith Cells None seen Amorphous Sediment 2+ Urine Bacteria Occasional (0-1) Ur Culture Indicated? Cult not indicated SARS-CoV-2 (PCR) Negative [facility] Medical History Abdominal wall hernia Atrial fibrillation Hyperlipidemia Hypertension Pacemaker Tobacco & Substance Use Smoking Status: Never smoker Assessment & Plan Assessment & Plan narrative: Incarcerated RUQ ventral hernia INR 3.8 on coumadin mobile cecum Plan: coumadin reversal with vitamen K OR when appropriate for hernia repair and possible cecopexy. COVID-19 COVID-19 status: Negative Time Spent With Patient Time with patient: 50 to 69 minutes with 50% spent counseling/coordinating care
--- NOTE | 2023-01-19 16:22 | P.HP_ITS ---
History of Present Illness History of Present Illness Date Patient Seen: 01/19/23 Time Patient Seen: 16:00 Chief complaint: abd. pain/hernia Narrative: This is an 82 year old female with PMH of tachy-bk syndrome s/p PPM, chronic atrial fibrillation on coumadin, HTN, HLD, prior heart surgery (unsure if ASD or VSD repair) long history of abdominal hernia who presented with abdominal pain. Abdominal pain initially started about 2 weeks ago after a spicy meal, was located over her hernia site, and was associated with mild nausea. Eventually the pain abated but returned yesterday evening after another spicy meal. The pain again was located over her hernia site, was sharp and constant. This time she had nausea and multiple episodes of emesis, with the last one she thought may be a bit bloody. She also noted worsening distension of her abdomen. She also endorses mildly dark stools but not loose stools. Last bowel movement was yesterday. CT scan showed a large hernia with loops of small bowel, with associated small bowel obstruction. Patient received pain medications, was able to be reduced by the ER physician with improvement in patient's distension and symptoms. Labs showed an elevated INR, CO2 of 40, but were otherwise unremarkable. She is not h ungry currently. She denies passing any gas. Given medical comorbidities patient admitted to the hospitalist service with surgical consultation, with plans for hernia repair prior to discharge, probably tomorrow. 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 Hyperlipidemia Hypertension Incisional hernia Pacemaker Prediabetes Primary osteoarthritis Subclinical hyperthyroidism Surgical History (Updated 01/19/23 @ 16:54 by Lorne Hdz DO) H/O heart surgery History of tonsillectomy and adenoidectomy Hx of cholecystectomy Family History Mother No pertinent past medical history Father No pertinent past medical history Social History Smoking Status: Never smoker Meds Home Medications and Allergies Home Medications Medication Instructions Recorded Confirmed Type warfarin 7.5 mg tablet (Coumadin) 7.5 mg PO QDAY ##0 11/29/12 01/19/23 History [COQ10] 100 mg PO DAILY ##0 02/12/17 01/19/23 History calcium carbonate 650 mg calcium 650 mg PO PRN PRN Acid Reflux ##0 02/12/17 01/19/23 History (1,625 mg) tablet docusate sodium 100 mg capsule 100 mg PO BIDP PRN Constipation ##0 02/12/17 01/19/23 History glucosamine 1 ea PO DAILY ##0 02/12/17 01/19/23 History sulfate-methylsulfonylmethane 250 mg-250 mg capsule amlodipine 5 mg-benazepril 10 mg 1 cap PO DAILY 03/13/18 01/19/23 History capsule atorvastatin 20 mg tablet 20 mg PO DAILY 03/13/18 01/19/23 History carvedilol 12.5 mg tablet 12.5 mg PO BID 03/13/18 01/19/23 History benzonatate 100 mg capsule 100 mg PO TID PRN Cough 01/19/23 01/19/23 History carboxymethylcellulose sodium 1 % 1 drp ophthalmic (eye) BID PRN Dry 01/19/23 01/19/23 History eye liquid gel drops Eyes cholecalciferol (vitamin D3) 25 25 mcg PO DAILY 01/19/23 01/19/23 History mcg (1,000 unit) tablet docusate sodium 100 mg capsule 300 mg PO BID 01/19/23 01/19/23 History losartan 50 mg tablet 50 mg PO BID 01/19/23 01/19/23 History omeprazole 20 mg PO DAILY 01/19/23 01/19/23 History omeprazole magnesium 20 mg 20 mg PO DAILY 01/19/23 01/19/23 History capsule,delayed release (Acid Supply Chain Design Manager (omeprazole)) vitamins A,C,A-[id number] 4,296 1 cap PO BID 01/19/23 01/19/23 History mcg-226 mg-90 mg capsule (PreserVision AREDS) Allergies Allergy/AdvReac Type Severity Reaction Status Date / Time No Known Drug Allergies Allergy Verified 04/10/18 21:03 Review of Systems Review of Systems Narrative: All other systems reviewed with the patient and are negative unless otherwise stated. Exam Vital Signs (past 8 hours): - 01/19/23 09:59 01/19/23 08:30 01/19/23 08:30 Temperature Pulse Rate 85 84 Respiratory Rate 20 Blood Pressure 200/90 H 171/111 H Pulse Oximetry 91 Oxygen Delivery Method Oxygen Flow Rate 01/19/23 08:57 01/19/23 08:57 01/19/23 09:00 Temperature Pulse Rate 84 Respiratory Rate 20 Blood Pressure 184/93 H 157/83 H Pulse Oximetry 93 Oxygen Delivery Method Oxygen Flow Rate 01/19/23 09:00 01/19/23 09:30 01/19/23 09:31 Temperature Pulse Rate 86 87 Respiratory Rate 20 20 Blood Pressure 200/90 H Pulse Oximetry 93 95 Oxygen Delivery Method Oxygen Flow Rate 01/19/23 10:00 01/19/23 10:01 01/19/23 10:01 Temperature Pulse Rate 82 74 Respiratory Rate 20 20 Blood Pressure 175/77 H Pulse Oximetry 94 94 Oxygen Delivery Method Oxygen Flow Rate 01/19/23 11:05 01/19/23 11:10 01/19/23 11:08 Temperature 96.7 F L 96.7 F L Pulse Rate 81 81 Respiratory Rate 16 16 Blood Pressure 169/80 H 169/80 H Pulse Oximetry 91 92 92 Oxygen Delivery Method Room Air Oxygen Flow Rate 01/19/23 13:00 01/19/23 15:08 Temperature 99.0 F Pulse Rate 68 Respiratory Rate 16 Blood Pressure 154/66 H Pulse Oximetry 93 Oxygen Delivery Method Room Air Oxygen Flow Rate 0 Oxygen Delivery Method Room Air Oxygen Flow Rate 0 Narrative Exam Narrative: General:? Patient is well developed and well nourished, in no distress at this time. HEENT:? Normocephalic, atraumatic, extraocular muscles intact, oral pharynx is clear and mucous membranes are moist. Neck: supple and symmetric, trachea is midline, no cervical adenopathy. Negative for JVD Chest:? Normal AP diameter and contour without kyphoscoliosis, no tachypnea, equal chest rise bilaterally. Lungs:? CTA b/l no wheezing rhonchi or rales. Cardio:?RRR no m/r/g. Abdomen: soft, NT, ND. large hernia near the epigastrium, no tenderness. Musculoskeletal:? Muscle strength and tone are equal within normal limits, no deformity. Extremities: trace bilateral non-pitting edema, no joint effusions. No cyanosis or clubbing. Skin:? Pale,? Warm to touch,dry and intact without rashes, ulcerations or petechiae.? Neuro:? Alert and orientated x3,? sensation to touch intact in all extremities, no gross deficits noted of cranial nerves. Psych:? Patient has a well-kept appearance, appropriate affect, mental status attitude thought context and judgment are appropriate for age. Objective ECG Impression: None performed, ordered for pre-op evaluation. Labs 01/19/23 06:20 01/19/23 06:20 Labs: Laboratory Results - last 24 hr 01/19/23 01/19/23 01/19/23 06:20 06:20 06:20 WBC 10.5 RBC 4.86 Hgb 14.3 Hct 43.5 MCV 89.6 MCH 29.5 MCHC 32.9 RDW 15.2 H Plt Count 233 Neut % (Auto) 80.3 H Lymph % (Auto) 12.4 L [place] % (Auto) 6.4 Eos % (Auto) 0.4 L Baso % (Auto) 0.5 Neut # (Auto) 8400 H Lymph # (Auto) 1300 [place] # (Auto) 700 Eos # (Auto) 0 Baso # (Auto) 100 PT INR Sodium 139 Potassium 3.8 Chloride 90 L Carbon Dioxide 40 H* BUN 22 H Creatinine 0.58 Estimated GFR > 60 BUN/Creatinine Ratio 37.9 H Glucose 169 H Lactate 1.5 Calcium 9.7 Total Bilirubin 0.7 AST 29 ALT 22 Alkaline Phosphatase 92 Total Protein 8.2 Albumin 4.6 Globulin 3.6 Albumin/Globulin Ratio 1.3 Urine RBC Urine WBC Ur Squamous Epith Cells Amorphous Sediment Urine Bacteria Ur Culture Indicated? SARS-CoV-2 (PCR) 01/19/23 01/19/23 01/19/23 06:20 07:39 08:52 WBC RBC Hgb Hct MCV MCH MCHC RDW Plt Count Neut % (Auto) Lymph % (Auto) [place] % (Auto) Eos % (Auto) Baso % (Auto) Neut # (Auto) Lymph # (Auto) [place] # (Auto) Eos # (Auto) Baso # (Auto) PT 44.3 H INR 3.8 H Sodium Potassium Chloride Carbon Dioxide BUN Creatinine Estimated GFR BUN/Creatinine Ratio Glucose Lactate Calcium Total Bilirubin AST ALT Alkaline Phosphatase Total Protein Albumin Globulin Albumin/Globulin Ratio Urine RBC 0-1/hpf Urine WBC 0-1/hpf Ur Squamous Epith Cells None seen Amorphous Sediment 2+ Urine Bacteria Occasional (0-1) Ur Culture Indicated? Cult not indicated SARS-CoV-2 (PCR) Negative Assessment & Plan Assessment & Plan narrative: 1. Incarcerated hernia, reduced, with small bowel obstruction. - appreciate management by general surgery, discussed with provider senior automation engineer. NPO diet entered for tonight, hopeful for surgical repair tomorrow. - given SQ Vit K 10 mg in ER, INR 3.8. INR in the AM, may need FFP prior to OR tomorrow depending on INR. - continue clear liquid diet for now, patient does not wish to advance at this time. 2. chronic afib, tachy-bk syndrome s/p PPM on anticoagulation - hold coumadin, continue home coreg - check pre-op EKG - appears medically optimized with no cardiac symptoms prior to admission. If EKG unremarkable no further evaluation necessary prior to surgery except for anticoagulation management discussed above. 3. HTN - hold losartan prior to OR, patient is also on losartan and benazepril so will stop benazepril. Continue amlodipine and coreg. 4. HLD - continue statin 5. reflux - does report mild hematemesis with vomiting, now resolved but also with dark stool. Hg 14. Continue to monitor h/h. Continue home PPI. 6. Metabolic alkalosis - suspect in setting of bowel obstruction and vomiting with CO2 of 40. No respiratory symptoms but will order VBG for morning labs to rule out hypercar connie. Code: Full, surrogate is patient's spouse or daughter DVT: on coumadin, holding / reversing for surgery. SCDs. Dispo: Admitted as inpatient, her stay is expected to exceed two midnights. Will likely discharge home. I have utilized all available immediate resources to obtain, update, or review the patient's current medications. I have discussed care with patient, ER provider, and coordinated care with surgeon. Have also reviewed relevant labs, imaging, and prior charting / notes. COVID-19 COVID-19 status: Negative Quality MIPS - Admit I confirm the patient?s Advance Care Plan is present, Code status is documented, Surrogate decision maker is in patient?s record [If Yes, STOP here]: Yes
[2023-01-19] MEDS: DOCUSATE 100 MG CAPSULE 300 MG PO (20:17)
[2023-01-19] MEDS: VIT C/E/ZN/COPPR/LUTEIN/ZEAXAN CAPSULE 1 CAP PO (20:17)
[2023-01-19] MEDS: SODIUM CHLORIDE 0.9% FLUSH 10 ML IV (20:18)
--- NOTE | 2023-01-19 23:16 | PC.NURSE ---
Patient is alert and oriented. Breath sounds CTA with RA sat of 93%. HR irregular and has hx of afib; has pacemaker. BP elevated at 143/62 and was given her carvedilol. Denies nausea. BT present and abdomen is soft. Has large hernia in RUQ/epigastric area. Denies dysuria, frequency or urgency with urination; up to bathroom with SBA tonight. Is independent in room during day light hours and is steady on her feet; uses cane only when going out of her home. Denies pain. Is aware she will be NPO after 0000 except for sips with any meds she may need. Declines use of SCD's so reminded to ankle wave when awake. Fall risk score is moderate but calls for staff assist appropriately so alarm is not in use.
[2023-01-20] VITALS (13 sets, daily range): BP systolic 128–156; BP diastolic 62–88; PULSE 63–87; RESP 17–18; TEMP 36.1–37.2; O2SAT 92–98
[2023-01-20 06:15] LABS: Add Manual Diff / Slide Review NO; Basophils Absolute Auto 0 /uL (0-100); Basophils Percent Auto 0.6 % (0-2); Eosinophils Absolute Auto 100 /uL (0-450); Eosinophils Percent Auto 1.8 % (2-4); Hematocrit 39.4 % (36-46); Lymphocytes Absolute Auto 1400 /uL (1100-4500); Lymphocytes Percent Auto 17.6 % (25-40); Mean Corpuscular Hemoglobin 29.4 PG (26-34); Monocytes Absolute Auto 700 /uL (0-900); Monocytes Percent Auto 9.6 % (3-14); Neutrophils Absolute Auto 5500 /uL (1500-7000); Neutrophils Percent Auto 70.4 % (50-75); Platelet Count 214 X10^3/uL (150-400); Red Blood Cell Count 4.42 X10^6/uL (4.0-5.2); Red Cell Distribution Width 15.1 % (11.6-14.8); White Blood Cell Count 7.7 X10^3/uL (4.5-11.0)
[2023-01-20 06:24] LABS: BUN Creatinine Ratio 27.7 (6-22); Blood Urea Nitrogen 13 mg/dL (7-17); Calcium 8.4 mg/dL (8.4-10.2); Carbon Dioxide 35 mmol/L (22-32); Chloride 99 mmol/L (98-107); Estimated Glomerular Filt Rate > 60 mL/min (>60); Glucose 122 mg/dL (80-110); HEMOLYSIS < 15 (0-50); Potassium 3.8 mmol/L (3.4-5.1); Sodium 139 mmol/L (137-145)
[2023-01-20 06:35] LABS: HCO3 VBG 34 mmol/L (24-28); Oxygen Saturation VBG 67 % (70-75); PCO2 VBG 54.2 mmHg (45-50); PO2 VBG 36 mmHg (35-45); Total CO2 VBG 35 mmol/L (24-29)
[2023-01-20 06:36] LABS: Fractionated Inspired Oxygen 21
[2023-01-20] MEDS: PANTOPRAZOLE DR 40 MG TABLET PO (06:36)
[2023-01-20 07:51] LABS: INR 2.1 (0.9-1.3); Prothrombin Time 24.5 SECONDS (10.1-12.7)
--- NOTE | 2023-01-20 08:13 | P.PN_ITS ---
Subjective Subjective Date Patient Seen: 01/20/23 Time Patient Seen: 08:13 Interval history: hernia not symptomatic today Exam Vital Signs (past 8 hours): - 01/20/23 05:24 01/20/23 05:15 Temperature 97.0 F L Pulse Rate 82 Respiratory Rate 18 Blood Pressure 143/88 H Pulse Oximetry 94 94 Oxygen Delivery Method Room Air Oxygen Flow Rate 0 0 Oxygen Delivery Method Room Air Oxygen Flow Rate 0 Narrative Exam Narrative: hernia soft, no incarceration. Objective Labs 01/20/23 05:35 01/20/23 05:35 Labs: Laboratory Results - last 24 hr 01/19/23 01/20/23 01/20/23 08:52 05:35 05:35 WBC 7.7 RBC 4.42 Hgb 13.0 Hct 39.4 MCV 89.0 MCH 29.4 MCHC 33.0 RDW 15.1 H Plt Count 214 Neut % (Auto) 70.4 Lymph % (Auto) 17.6 L [place] % (Auto) 9.6 Eos % (Auto) 1.8 L Baso % (Auto) 0.6 Neut # (Auto) 5500 Lymph # (Auto) 1400 [facility] # (Auto) 700 Eos # (Auto) 100 Baso # (Auto) 0 PT INR VBG pH VBG pCO2 VBG pO2 VBG HCO3 VBG Total CO2 VBG O2 Saturation VBG Base Excess FiO2 Sodium 139 Potassium 3.8 Chloride 99 Carbon Dioxide 35 H BUN 13 Creatinine 0.47 L Estimated GFR > 60 BUN/Creatinine Ratio 27.7 H Glucose 122 H Calcium 8.4 Magnesium 2.0 Urine RBC 0-1/hpf Urine WBC 0-1/hpf Ur Squamous Epith Cells None seen Amorphous Sediment 2+ Urine Bacteria Occasional (0-1) Ur Culture Indicated? Cult not indicated 01/20/23 01/20/23 05:38 07:27 WBC RBC Hgb Hct MCV MCH MCHC RDW Plt Count Neut % (Auto) Lymph % (Auto) [facility] % (Auto) Eos % (Auto) Baso % (Auto) Neut # (Auto) Lymph # (Auto) [facility] # (Auto) Eos # (Auto) Baso # (Auto) PT 24.5 H D INR 2.1 H VBG pH 7.40 VBG pCO2 54.2 H VBG pO2 36 VBG HCO3 34 H VBG Total CO2 35 H VBG O2 Saturation 67 L VBG Base Excess 9.0 H FiO2 21 Sodium Potassium Chloride Carbon Dioxide BUN Creatinine Estimated GFR BUN/Creatinine Ratio Glucose Calcium Magnesium Urine RBC Urine WBC Ur Squamous Epith Cells Amorphous Sediment Urine Bacteria Ur Culture Indicated? 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 Hyperlipidemia Hypertension Incisional hernia Pacemaker Prediabetes Primary osteoarthritis Subclinical hyperthyroidism Surgical History (Updated 01/19/23 @ 16:54 by Lorne Hdz DO) H/O heart surgery History of tonsillectomy and adenoidectomy Hx of cholecystectomy Family History Mother No pertinent past medical history Father No pertinent past medical history Social History Smoking Status: Never smoker Assessment & Plan Assessment & Plan narrative: INF 2.1, may require further correction with vit K Plan: OR tomorrow for hernia repair. Time Spent With Patient Time with patient: less than 30 minutes
[2023-01-20] MEDS: DOCUSATE 100 MG CAPSULE 300 MG PO ×2 (08:35→20:43)
[2023-01-20] MEDS: AMLODIPINE 5 MG TABLET PO (08:36)
[2023-01-20] MEDS: ATORVASTATIN 20 MG TABLET PO (08:36)
[2023-01-20] MEDS: CHOLECALCIFEROL (VITAMIN D3) 1,000 UNIT TABLET 1000 UNIT PO (08:36)
[2023-01-20] MEDS: carvediloL 12.5 MG TABLET PO ×2 (08:36→20:43)
[2023-01-20] MEDS: SODIUM CHLORIDE 0.9% FLUSH 10 ML IV ×3 (08:38→20:53)
[2023-01-20] MEDS: VIT C/E/ZN/COPPR/LUTEIN/ZEAXAN CAPSULE 1 CAP PO ×2 (08:38→20:53)
[2023-01-20] MEDS: OXYCODONE IR 5 MG TABLET PO (11:33)
[2023-01-20] MEDS: PHYTONADIONE (VIT K1) 5 MG TABLET PO (11:33)
--- NOTE | 2023-01-20 12:24 | CM.IDA ---
Initial DCP Assessment Patient is 82 y/o female who presents to due to concern for hernia and abdominal pain. Patient was admitted to acute care by hospitalist due to concern for Hernia, ventral, AFib, Chronic Anitcoagulation and Hypertension. Patient has scheduled surgery for Hernia and Bowel obstruction for tomorrow with Dr. Gaytan. Patient will be seeing new PCP Temi Feliciano PA-C, Patient has Medicare and [employer] insurance. FARM SERVICE CONSULTANT enters room to meet with patient. Patient presents as A/Ox4, patient endorses she resides with spouse in [place]. Patient endorses independence with ADLs, patient states her spouse drives as she has worsening vision. Patient endorses concern for muscular degeneration and states that she uses a cane when she is outside. Patient endorses preference to d/c to home and denies DCP needs at this time. Patient endorses she is open to HH if it is recommended, if so patient denies preference at this time because she does not know the difference between HH agencies. Patient is interest in HH information if needed. Plan: patient to have hernia surgery tomorrow, no DCP needs at this time, DCP to f/u with POC post surgery. JERSON Mazariegos Discharge Planning/Care Management CM Discharge Assessment Start: 01/20/23 12:16 Freq: Status: Active Protocol: Document 01/20/23 12:17 LN (Rec: 01/20/23 12:23 LN [id number]) Discharge Planning Assessment Assigned Steam Cleaner JERSON Peters DPOA/Assigned Designee Name Spouse- London Gonzalez Contact Information Ph. # [phone] Advance Directives? No History Provided By Patient,Medical Record Has Patient been admitted in last 30 No days? Prior Living Arrangements House Household Members spouse Type of transportation used prior to Relies on Others admit Comment Due to patient's worsening eye sight patient's spouse drives her. Independent with ADL's Yes Is patient alert and oriented? Yes DME Already Rented / Owned Cane Comment Patient endorses she uses a cane when walking outside Comment Patient endorses preference to d/c to home, dependent on surgery and if PT eval is needed patient is open to HH, no preference. Additional Comment Pending post surgery PT eval Please Provide Date Initial DC 01/20/23 Assessment Was Performed
--- NOTE | 2023-01-20 14:30 | P.PN_ITS ---
Subjective Subjective Interval history: 82 year old female admitted with a hernia and SBO which resolved with reduction in the ER yesterday. Planned for surgery but INR still elevated today. Gave additional oral vit K today. Some difficulty with meals today, but no abdominal pain. No bowel movements or passing gas today. No nausea or vomiting. Exam Vital Signs (past 8 hours): - 01/20/23 08:36 01/20/23 09:00 01/20/23 11:00 Temperature 97.2 F L 97.3 F L Pulse Rate 76 73 71 Respiratory Rate 17 17 Blood Pressure 156/67 H 156/67 H 146/76 H Pulse Oximetry 92 94 Oxygen Flow Rate 0 0 Oxygen Delivery Method Room Air Oxygen Flow Rate 0 Narrative Exam Narrative: General:? Patient is well developed and well nourished, in no distress at this time. HEENT:? Normocephalic, atraumatic, extraocular muscles intact, oral pharynx is clear and mucous membranes are moist. Neck: supple and symmetric, trachea is midline, no cervical adenopathy. Negative for JVD Chest:? Normal AP diameter and contour without kyphoscoliosis, no tachypnea, equal chest rise bilaterally. Lungs:? CTA b/l no wheezing rhonchi or rales. Cardio:?RRR no m/r/g. Abdomen: soft, NT, ND. large hernia near the epigastrium, no tenderness. Musculoskeletal:? Muscle strength and tone are equal within normal limits, no deformity. Extremities: trace bilateral non-pitting edema, no joint effusions. No cyanosis or clubbing. Skin:? Pale,? Warm to touch,dry and intact without rashes, ulcerations or petechiae.? Neuro:? Alert and orientated x3,? sensation to touch intact in all extremities, no gross deficits noted of cranial nerves. Psych:? Patient has a well-kept appearance, appropriate affect, mental status attitude thought context and judgment are appropriate for age. Objective Labs 01/20/23 05:35 01/20/23 05:35 Labs: Laboratory Results - last 24 hr 01/20/23 01/20/23 01/20/23 05:35 05:35 05:38 WBC 7.7 RBC 4.42 Hgb 13.0 Hct 39.4 MCV 89.0 MCH 29.4 MCHC 33.0 RDW 15.1 H Plt Count 214 Neut % (Auto) 70.4 Lymph % (Auto) 17.6 L [place] % (Auto) 9.6 Eos % (Auto) 1.8 L Baso % (Auto) 0.6 Neut # (Auto) 5500 Lymph # (Auto) 1400 [place] # (Auto) 700 Eos # (Auto) 100 Baso # (Auto) 0 PT INR VBG pH 7.40 VBG pCO2 54.2 H VBG pO2 36 VBG HCO3 34 H VBG Total CO2 35 H VBG O2 Saturation 67 L VBG Base Excess 9.0 H FiO2 21 Sodium 139 Potassium 3.8 Chloride 99 Carbon Dioxide 35 H BUN 13 Creatinine 0.47 L Estimated GFR > 60 BUN/Creatinine Ratio 27.7 H Glucose 122 H Calcium 8.4 Magnesium 2.0 01/20/23 07:27 WBC RBC Hgb Hct MCV MCH MCHC RDW Plt Count Neut % (Auto) Lymph % (Auto) [place] % (Auto) Eos % (Auto) Baso % (Auto) Neut # (Auto) Lymph # (Auto) [place] # (Auto) Eos # (Auto) Baso # (Auto) PT 24.5 H D INR 2.1 H VBG pH VBG pCO2 VBG pO2 VBG HCO3 VBG Total CO2 VBG O2 Saturation VBG Base Excess FiO2 Sodium Potassium Chloride Carbon Dioxide BUN Creatinine Estimated GFR BUN/Creatinine Ratio Glucose Calcium Magnesium 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 Hyperlipidemia Hypertension Incisional hernia Pacemaker Prediabetes Primary osteoarthritis Subclinical hyperthyroidism Surgical History (Updated 01/19/23 @ 16:54 by Lorne Hdz DO) H/O heart surgery History of tonsillectomy and adenoidectomy Hx of cholecystectomy Family History Mother No pertinent past medical history Father No pertinent past medical history Social History household members: spouse Smoking Status: Never smoker Assessment & Plan Assessment & Plan narrative: 1. Incarcerated hernia, reduced, with small bowel obstruction, now improved. 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 NPO diet entered for tonight, hopeful for surgical repair tomorrow. - given SQ Vit K 10 mg in ER, INR 3.8. INR in the AM was 2.1. Gave additional oral Vit K today. - advanced to low residue diet, NPO @ [place] for OR tomorrow. 2. 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 - appears medically optimized with no cardiac symptoms prior to admission 3. HTN - hold losartan prior to OR, patient is also on losartan and benazepril so will stop benazepril. Continue amlodipine and coreg. 4. HLD - continue statin 5. reflux - does report mild hematemesis with vomiting, now resolved but also with dark stool. Hg 14. Continue to monitor h/h. Continue home PPI. 6. Compensated respiratory acidosis with metabolic alkalosis. - suspect worsened in setting of bowel obstruction and vomiting with CO2 of 40. PCO2 on VBG today in the mid 50s, with pH 7.4, likely chronic hypercarbia. Recommend outpatient PFTs. Code: Full, surrogate is patient's spouse or daughter DVT: on coumadin, holding / reversing for surgery. SCDs. Dispo: Admitted as inpatient, her stay is expected to exceed two midnights. Will likely discharge home. I have utilized all available immediate resources to obtain, update, or review the patient's current medications. I have discussed care with patient and coordinated care with surgeon. Have also reviewed relevant labs, imaging, and prior charting / notes. COVID-19 COVID-19 status: Negative
[2023-01-20] MEDS: ONDANSETRON 4 MG/2 ML INJ IV (17:26)
[2023-01-20] MEDS: HYDROMORPHONE 0.5 MG INJ IV (17:26)
[2023-01-20] MEDS: DEXTROSE 5%-0.45% NS 1,000 ML 64 ML IV (20:46)
[2023-01-21] VITALS (17 sets, daily range): BP systolic 134–187; BP diastolic 54–97; PULSE 63–89; RESP 16–28; TEMP 36.3–37.5; O2SAT 91–99; BMI 28.3
--- NOTE | 2023-01-21 02:15 | PC.NURSE ---
Checked to do CBG. but she was sound asleep. Notified MARIVEL Mcclure she ordered to hold CBG check for now. Will recheck her CBG when she wakes up. Will continue POC & monitor.
[2023-01-21 06:43] LABS: BUN Creatinine Ratio 24.4 (6-22); Blood Urea Nitrogen 11 mg/dL (7-17); Calcium 7.8 mg/dL (8.4-10.2); Carbon Dioxide 32 mmol/L (22-32); Chloride 102 mmol/L (98-107); Estimated Glomerular Filt Rate > 60 mL/min (>60); Glucose 146 mg/dL (80-110); HEMOLYSIS < 15 (0-50); Potassium 3.9 mmol/L (3.4-5.1); Sodium 138 mmol/L (137-145)
[2023-01-21] MEDS: SODIUM CHLORIDE 0.9% FLUSH 10 ML IV ×3 (06:45→20:06)
[2023-01-21] MEDS: PANTOPRAZOLE 40 MG VIAL IV (06:45)
[2023-01-21 06:47] LABS: Add Manual Diff / Slide Review NO; Basophils Absolute Auto 0 /uL (0-100); Basophils Percent Auto 0.6 % (0-2); Eosinophils Absolute Auto 200 /uL (0-450); Eosinophils Percent Auto 2.5 % (2-4); Hematocrit 37.1 % (36-46); Hemoglobin 12.3 g/dL (12.0-16.0); Lymphocytes Absolute Auto 1100 /uL (1100-4500); Lymphocytes Percent Auto 14.7 % (25-40); Mean Corpuscular Hemoglobin 29.5 PG (26-34); Mean Corpuscular Volume 89.2 fL (80-100); Monocytes Absolute Auto 700 /uL (0-900); Monocytes Percent Auto 9.5 % (3-14); Neutrophils Absolute Auto 5300 /uL (1500-7000); Neutrophils Percent Auto 72.7 % (50-75); Platelet Count 205 X10^3/uL (150-400); Red Blood Cell Count 4.16 X10^6/uL (4.0-5.2); Red Cell Distribution Width 14.9 % (11.6-14.8); White Blood Cell Count 7.3 X10^3/uL (4.5-11.0)
[2023-01-21 06:49] LABS: INR 1.3 (0.9-1.3); Prothrombin Time 15.4 SECONDS (10.1-12.7)
[2023-01-21] MEDS: carvediloL 12.5 MG TABLET PO ×2 (09:16→20:04)
[2023-01-21] MEDS: ATORVASTATIN 20 MG TABLET PO (09:16)
[2023-01-21] MEDS: DOCUSATE 100 MG CAPSULE 300 MG PO ×2 (09:16→20:03)
[2023-01-21] MEDS: AMLODIPINE 5 MG TABLET PO (09:21)
[2023-01-21] MEDS: VIT C/E/ZN/COPPR/LUTEIN/ZEAXAN CAPSULE 1 CAP PO ×2 (09:21→20:04)
[2023-01-21] MEDS: CHOLECALCIFEROL (VITAMIN D3) 1,000 UNIT TABLET 1000 UNIT PO (09:21)
[2023-01-21] MEDS: DEXTROSE 5%-0.45% NS 1,000 ML 64 ML IV (11:26)
--- NOTE | 2023-01-21 12:45 | PM.PREOP ---
Pre-operative Note COVID-19 COVID-19 status: Negative Criteria for continued procedure: Delay expected to result in less-positive ultimate med/surg outcome Interval Note History & Physical reviewed/Exam performed by Physician: Yes Changes to H&P: Yes H&P completed within 30 days and has changed as indicated here:: INR 1.3
[2023-01-21] MEDS: CEFAZOLIN 2 GM/100 ML PREMIX 100 ML IV (15:44)
[2023-01-21] MEDS: BUPIVACAINE 0.5% (PF) 10 ML VIAL 5 ML SUBCUT (16:07)
[2023-01-21] MEDS: EPINEPHrine 1 MG/ML 0.15 MG IM (16:08)
--- NOTE | 2023-01-21 16:16 | SUR.OPER ---
Supine on padded OR bed, head on pillow, arms secured on padded arm boards at <90 degrees abduction, legs uncrossed, safety belt at thigh, tape over blanket over lower legs.
--- NOTE | 2023-01-21 16:31 | PM.OP.1 ---
Operative Date/Time/Diagnoses Date of procedure: 01/21/23 Time of procedure: 16:31 Pre-op diagnosis: Incisional hernia, incarcerated Post-op diagnosis: same Procedure & Clinicians Procedure: Incisional hernia repair with mesh Same procedure as scheduled: Yes Indications: Incarcerated incisional hernia with history of obstruction Surgeon: Kristin Gaytan Click Yes if Unassisted: Yes Anesthesia Type: General and Local Operative Notes Findings: Incarcerated incisional hernia through an old open cholecystectomy scar. No evidence of strangulation or obstruction Closure Type: primary Specimen(s): none sent Prosthetic devices, grafts, tissues, transplants, or devices: Mesh Estimated Blood Loss (mL): 10 Blood products transfused: none Procedure in detail: Preop diagnosis: Incarcerated incisional hernia Postop diagnosis: Same Operative procedure: Repair of incarcerated incisional hernia with mesh Anesthetic: General with ET tube intubation with local Surgeon: Danna Gaytan MD Findings: Incarcerated incisional hernia, no strangulation. Procedure: Patient placed in a supine position. Prepped and draped sterile fashion to expose her abdomen. Old transverse scar was reopened over the palpable hernia. Hernia was reduced and the fascial edges were cleared using electrocautery. I then placed a round mesh into the defect and with a running suture stitched it to the fascia circumferentially. Skin was closed with a running 4-0 Vicryl. Skin glue was placed as an outer dressing. Patient was awakened, extubated, taken to recovery room in stable condition. Needle, instrument, sponge counts were correct. Blood loss: 10 mL Specimen: None Complications: none Post-operative Condition: stable Disposition: PACU
--- NOTE | 2023-01-21 17:10 | SUR.PHASEI ---
attempted to call report
[2023-01-21] MEDS: OXYCODONE IR 5 MG TABLET PO ×2 (17:12→21:48)
--- NOTE | 2023-01-21 17:25 | SUR.PHASEI ---
second attempt to call report for room 212
--- NOTE | 2023-01-21 17:46 | P.PN_ITS ---
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 The hernia was reduced in the emergency department. She is scheduled to undergo operative repair today. INR was initially elevated and surgery was delayed to allow for the INR to be treated and brought down to appropriate ranges. Today it is 1.3. Patient reports she is feeling a bit hungry today. No nausea, no shortness breath, no chest pain. She has been moving her bowels. She is looking forward to having the surgery done. Exam Vital Signs (past 8 hours): - 01/21/23 13:00 01/21/23 15:04 01/21/23 16:44 Temperature 99.5 F 98.5 F Pulse Rate 81 75 Respiratory Rate 16 16 Blood Pressure 180/78 H 159/85 H Pulse Oximetry 94 94 98 Oxygen Delivery Method Room Air Room Air Simple Mask Oxygen Flow Rate 5 01/21/23 16:49 01/21/23 16:55 Temperature Pulse Rate 82 77 Respiratory Rate 20 28 H Blood Pressure 171/93 H 172/97 H Pulse Oximetry 99 96 Oxygen Delivery Method Room Air Room Air Oxygen Flow Rate Oxygen Delivery Method Room Air Oxygen Flow Rate 5 Narrative Exam Narrative: GEN: Very pleasant elderly female, Alert and oriented x 3, NAD HEENT:NC, Face symmetric CHEST: Respiratory excursions symmetric, CTAB CV: RRR, no M/R/G ABD: Soft, mildly obese, NT/ND, BT present in all 4 quadrants, old right upper quadrant surgical scar from previous cholecystectomy with large incisional hernia noted, gurgling within the hernia, nonreducible that there is a small area of tissue that feels somewhat like firm ridge, perhaps scar tissue EXTR: warm, well perfused, no C/C/E SKIN: warm and dry, no rash NEURO: Alert and oriented x 3, nonfocal Objective Labs 01/21/23 06:16 01/21/23 06:16 Labs: Laboratory Results - last 24 hr 01/21/23 01/21/23 01/21/23 06:16 06:16 06:16 WBC 7.3 RBC 4.16 Hgb 12.3 Hct 37.1 MCV 89.2 MCH 29.5 MCHC 33.0 RDW 14.9 H Plt Count 205 Neut % (Auto) 72.7 Lymph % (Auto) 14.7 L [place] % (Auto) 9.5 Eos % (Auto) 2.5 Baso % (Auto) 0.6 Neut # (Auto) 5300 Lymph # (Auto) 1100 [place] # (Auto) 700 Eos # (Auto) 200 Baso # (Auto) 0 PT 15.4 H D INR 1.3 Sodium 138 Potassium 3.9 Chloride 102 Carbon Dioxide 32 BUN 11 Creatinine 0.45 L Estimated GFR > 60 BUN/Creatinine Ratio 24.4 H Glucose 146 H Calcium 7.8 L Magnesium 2.0 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 Hyperlipidemia Hypertension Incisional hernia Pacemaker Prediabetes Primary osteoarthritis Subclinical hyperthyroidism Surgical History (Updated 01/19/23 @ 16:54 by Lorne Hdz DO) H/O heart surgery History of tonsillectomy and adenoidectomy Hx of cholecystectomy Family History Mother No pertinent past medical history Father No pertinent past medical history Social History household members: spouse Smoking Status: Never smoker Assessment & Plan Assessment & Plan narrative: 1. Incarcerated hernia Status post reduction on the date of admission. Patient is going to the operating room this afternoon at 4:00 p.m.. INR is now 1 0.3 after additional vitamin K given yesterday. She was given 10 mg subcu in the emergency depa rtment on admission, and oral vitamin K yesterday. Appreciate care per General surgery. 2. Chronic atrial fibrillation, tachy-bk syndrome, status post permanent pacemaker placement, on warfarin anticoagulation Discussed with Dr. Gaytan after surgery today. She is okay with resuming warfarin this evening. 3. Hypertension Patient had been on both losartan and benazepril prior to admission. Losartan was held for surgery. Benazepril was discontinued. She remains on amlodipine and Coreg. Will plan to resume losartan in the next 24 hours. 4. Hyperlipidemia Continue statin therapy. 5. GERD Continue PPI. Code status Full Prophylaxis Resuming warfarin. Given her CHADS2 Vasc score of 4, which equates with a 4.8% stroke risk annually, will add at least prophylactic dose Lovenox today. Disposition Patient hopes to be able to go home tomorrow.
[2023-01-21] MEDS: WARFARIN 5 MG TABLET 7.5 MG PO (18:13)
--- NOTE | 2023-01-21 18:40 | PC.NURSE ---
Pt arrived from PACU at 1750, A&Ox4, c/o 4/10 pain to abdomen. Diagonal incision to mid abdomen c/d/i with glue. Bowel sounds hypoactive. Pt and re-oriented to room and call light, bed in low position, SCDs in place.
[2023-01-21] MEDS: ENOXAPARIN 40 MG/0.4 ML SYRINGE SUBCUT (20:07)
[2023-01-21] MEDS: ACETAMINOPHEN 325 MG TABLET 650 MG PO (21:49)
[2023-01-22] VITALS (7 sets, daily range): BP systolic 124–175; BP diastolic 55–83; PULSE 77–97; RESP 16–17; TEMP 36.6–36.8; O2SAT 91–94
[2023-01-22] MEDS: OXYCODONE IR 5 MG TABLET PO (02:13)
--- NOTE | 2023-01-22 03:00 | P.DS_ITS ---
History of Present Illness History of Present Illness Date Patient Seen: 01/22/23 Chief complaint: abd. pain/hernia Narrative: This is an 82 year old female with PMH of tachy-bk syndrome s/p PPM, chronic atrial fibrillation on coumadin, HTN, HLD, prior heart surgery (unsure if ASD or VSD repair) long history of abdominal hernia who presented with abdominal pain. Abdominal pain initially started about 2 weeks ago after a spicy meal, was located over her hernia site, and was associated with mild nausea. Eventually the pain abated but returned yesterday evening after another spicy meal. The pain again was located over her hernia site, was sharp and constant. This time she had nausea and multiple episodes of emesis, with the last one she thought may be a bit bloody. She also noted worsening distension of her abdomen. She also endorses mildly dark stools but not loose stools. Last bowel movement was yesterday. CT scan showed a large hernia with loops of small bowel, with associated small bowel obstruction. Patient received pain medications, was able to be reduced by the ER physician with improvement in patient's distension and symptoms. Labs showed an elevated INR, CO2 of 40, but were otherwise unremarkable. She is not hungry currently. She denies passing any gas. Given medical comorbidities patient admitted to the hospitalist service with surgical consultation, with plans for hernia repair prior to discharge, probably tomorrow. Discharge Providers Provider Date of admission: 01/19/23 09:36 Discharge Date: 01/22/23 Primary care physician: Марина Brody PA-C Discharge provider: Nita Tobar MD Summary Hospital Course Hospital Course: Pt was admitted w/SBO d/t incarcerated hernia. The hernia was reduced in the ED effectively. Her SBO resolved. She was taken to the OR for hernia repair on 01/21/23 and did well. Warfarin was restarted that evening w/o complication. She felt ready for d/c home on 01/22/23. She was tolerating po intake and had no nausea/vomiting. She is d/c'd home in stable condition. Status at Discharge Overall status at discharge: patient is progressing back to baseline Exam Vital Signs (past 8 hours): Oxygen Delivery Method Room Air Oxygen Flow Rate 0 Narrative Exam Narrative: GEN:? Very pleasant elderly female, Alert and oriented x 3, NAD HEENT:NC, Face symmetric CHEST: Respiratory excursions symmetric, CTAB CV: RRR, no M/R/G ABD: Soft, mildly obese, NT/ND, BT present in all 4 quadrants, old right upper quadrant surgical scar from previous cholecystectomy with new incision overlying the old scar EXTR: warm, well perfused, no C/C/E SKIN: warm and dry, no rash NEURO: Alert and oriented x 3, nonfocal Objective Labs 01/22/23 05:59 01/22/23 05:59 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 Hyperlipidemia Hypertension Incisional hernia Pacemaker Prediabetes Primary osteoarthritis Subclinical hyperthyroidism Surgical History H/O heart surgery History of tonsillectomy and adenoidectomy Hx of cholecystectomy Family History Mother No pertinent past medical history Father No pertinent past medical history Social History household members: spouse Smoking Status: Never smoker alcohol intake: current Discharge Plan Discharge Plan Patient Disposition: Home Provider Discharge Comment: Do not lift more than 10# until cleared per general surgery Monitor your incision; return for fevers, increased redness, drainage or bleeding from incision You will need a PT/INR once weekly until you are therapeutic (pls tell you provider that you were given Vitamin K and your warfarin was held for surgery). Restart your warfarin at your usual home dose today. Take senna and a stool softener daily until you are off of the pain medication. Return to the ED for: inability to hold down food/fluids, and other symptoms listed above You were on both amlodipine-benazepril and losartan. Benazapril and losartan are similar medications and generally it is advised that you not take both. Please stop the amlodipine-benazapril and start the new prescription for a mlodipine. Continue losartan as you have been. Discharge orders & Medications Prescriptions: New amlodipine [Norvasc] 5 mg Tablet 5 mg PO DAILY Qty: 30 0RF ondansetron 4 mg tablet,disintegrating 4 mg PO Q8H Qty: 20 0RF Continued atorvastatin 20 mg tablet 20 mg PO DAILY carvedilol 12.5 mg tablet 12.5 mg PO BID warfarin [Coumadin] 7.5 MG tablet 7.5 mg PO QDAY Qty: 0 Rx Instructions: 7.5 mg SUN, MON, WED, TUESDAY 5mg tues, thrus, sat calcium carbonate 650 MG tablet 650 mg PO PRN PRN (Reason: Acid Reflux) Qty: 0 docusate sodium 100 MG capsule 100 mg PO BIDP PRN (Reason: Constipation) Qty: 0 glucosamine sulfate-msm 1 EACH capsule 1 ea PO DAILY Qty: 0 [COQ10] 100 mg PO DAILY Qty: 0 omeprazole 20 mg PO DAILY Rx Instructions: daily 30 min prior to meals. benzonatate 100 mg Capsule 100 mg PO TID PRN (Reason: Cough) losartan 50 mg Tablet 50 mg PO BID carboxymethylcellulose sodium 1 % Drops, Liquid Gel 1 drp OPHTHALMIC (EYE) BID PRN (Reason: Dry Eyes) PreserVision AREDS 4,296 mcg-226 mg-90 mg Capsule 1 cap PO BID docusate sodium 100 mg Capsule 300 mg PO BID Rx Instructions: Take 3 caps twice a day. cholecalciferol (vitamin D3) 25 mcg (1,000 unit) Tablet 25 mcg PO DAILY Discontinued amlodipine-benazepril 5-10 mg capsule 1 cap PO DAILY omeprazole magnesium [Acid Equipment Oiler (omeprazole)] 20 mg Capsule,Delayed Release(Dr/Ec) 20 mg PO DAILY Rx Instructions: Prior to morning meal No Action sennosides [senna] 8.6 mg Tablet 8.6 mg PO BEDTIME Qty: 30 0RF prednisone 20 mg Tablet See Rx Instructions .ROUTE .COMPLEX Qty: 7 0RF Rx Instructions: 40 mg by mouth daily for 2 days then 20 mg by mouth daily for 2 days then 10mg by mouth daily for 2 days then stop furosemide 20 mg Tablet 20 mg PO DAILY Qty: 30 0RF amoxicillin 500 mg capsule 500 mg PO TID 4 Days Qty: 12 0RF Rx Instructions: start on 01/27 oxycodone 5 mg Tablet 5 mg PO Q3H PRN (Reason: Pain, Moderate (4-6)) Qty: 20 0RF Follow up/Referrals: [facility] [Provider Group] - 2 Weeks (Post-op check) Марина Brody PA-C [Primary Care Provider] - Diet/Activity/Treatments Diet: Diet as Tolerated Activity: As tolerated Oxygen: N/A Visit Report/Discharge Packet Instructions: How to Prevent Falls, DI for Prescription Opioid Use, DI for Ventral Hernia, [facility]: Wound Care Stand Alone Forms: Patient Portal/API, Stroke Signs & Symptoms Discharge Data Primary Care Provider: Марина Brody Discharges patient from system. Discharge Date/Time: 01/22/23 16:20
[2023-01-22] MEDS: PANTOPRAZOLE DR 40 MG TABLET PO (06:04)
[2023-01-22 06:56] LABS: Add Manual Diff / Slide Review NO; Basophils Absolute Auto 0 /uL (0-100); Basophils Percent Auto 0.5 % (0-2); Eosinophils Absolute Auto 200 /uL (0-450); Eosinophils Percent Auto 1.6 % (2-4); Hematocrit 37.4 % (36-46); Hemoglobin 12.4 g/dL (12.0-16.0); Lymphocytes Absolute Auto 1300 /uL (1100-4500); Lymphocytes Percent Auto 13.6 % (25-40); Mean Corpuscular Hemoglobin 29.6 PG (26-34); Mean Corpuscular Volume 89.8 fL (80-100); Monocytes Absolute Auto 1100 /uL (0-900); Monocytes Percent Auto 11.5 % (3-14); Neutrophils Absolute Auto 7100 /uL (1500-7000); Neutrophils Percent Auto 72.8 % (50-75); Platelet Count 205 X10^3/uL (150-400); Red Blood Cell Count 4.17 X10^6/uL (4.0-5.2); White Blood Cell Count 9.7 X10^3/uL (4.5-11.0)
[2023-01-22 07:08] LABS: INR 1.3 (0.9-1.3); Prothrombin Time 15.1 SECONDS (10.1-12.7)
[2023-01-22 07:16] LABS: BUN Creatinine Ratio 23.1 (6-22); Blood Urea Nitrogen 12 mg/dL (7-17); Carbon Dioxide 31 mmol/L (22-32); Chloride 103 mmol/L (98-107); Estimated Glomerular Filt Rate > 60 mL/min (>60); Glucose 119 mg/dL (80-110); HEMOLYSIS < 15 (0-50); Magnesium 1.9 mg/dL (1.6-2.3); Potassium 3.7 mmol/L (3.4-5.1); Sodium 138 mmol/L (137-145)
[2023-01-22] MEDS: ENOXAPARIN 40 MG/0.4 ML SYRINGE SUBCUT (09:16)
[2023-01-22] MEDS: DOCUSATE 100 MG CAPSULE 300 MG PO (09:16)
[2023-01-22] MEDS: SODIUM CHLORIDE 0.9% FLUSH 10 ML IV (09:17)
[2023-01-22] MEDS: VIT C/E/ZN/COPPR/LUTEIN/ZEAXAN CAPSULE 1 CAP PO (09:17)
[2023-01-22] MEDS: ATORVASTATIN 20 MG TABLET PO (09:17)
[2023-01-22] MEDS: AMLODIPINE 5 MG TABLET PO (09:17)
[2023-01-22] MEDS: CHOLECALCIFEROL (VITAMIN D3) 1,000 UNIT TABLET 1000 UNIT PO (09:17)
[2023-01-22] MEDS: carvediloL 12.5 MG TABLET PO (09:17)
--- NOTE | 2023-01-22 11:45 | CM.DPNOTE ---
Discharge Planning Note: Patient is post op hernia repair, POD 1. Possible home today. Plan: DC home when cleared. Hannah Siddiqui RN/DCP
== END 2023-01-22 16:20 | disposition home or self-care (01) | DRG 357 ==
LOC: ED 06:06 → AC 09:36
PROVIDERS: Surgery; Admitting Provider Internal Medicine; Emergency Provider Emergency Medicine; PCP Physician Assistant; Referring Provider Emergency Medicine; Visit Provider Internal Medicine
PROC: 0DQV0ZZ Repair Mesentery, Open Approach (ICD-10-PCS; principal; 2023-01-21 16:00)
DX: K43.0 Incisional hernia with obstruction, without gangrene (principal); E87.4 Mixed disorder of acid-base balance; I48.20 Chronic atrial fibrillation, unspecified; K56.609 Unspecified intestinal obstruction, unspecified as to partial versus complete obstruction; I49.5 Sick sinus syndrome; I10 Essential (primary) hypertension; E78.5 Hyperlipidemia, unspecified; K21.9 Gastro-esophageal reflux disease without esophagitis; Z79.01 Long term (current) use of anticoagulants; Z95.0 Presence of cardiac pacemaker; Z20.822 Contact with and (suspected) exposure to COVID-19
CPT/HCPCS: 36415; 74177; 80048; 80053; 81003; 81015; 82805; 82962; 83605; 83735; 85025; 85610; 87635; 93005; 96372; 96374; 96375; 99284; 99291; C9803; C9113; J0171; J0330; J0690; J1100; J1170; J1650; J2405; J2704; J3010; J3430; Q9967

== ENCOUNTER 2023-01-24 10:52 | Observation (INO) | payer MEDICARE, OTHER, SELFPAY ==
[2023-01-19 10:56] VITALS: BMI 28.3
[2023-01-24] VITALS (27 sets, daily range): BP systolic 139–211; BP diastolic 61–85; PULSE 89–118; RESP 18–37; TEMP 36.5–38.1; O2SAT 91–96; BMI 30.8
--- NOTE | 2023-01-24 10:55 | DI.RAD.S_ITS ---
PROCEDURE: XR ACUTE ABDOMEN SERIES INDICATIONS: weakness, swelling, recent hernia surgery TECHNIQUE: One view chest and two views of the abdomen were acquired. COMPARISON: None. FINDINGS: Single lead left-sided pacemaker noted. Heart size is enlarged. Atherosclerotic vascular calcification noted in the aortic arch. Mild vascular congestion noted. Lungs and pleural spaces are clear. Generalized decrease in osseous mineralization noted. Degenerative changes noted involving the right glenohumeral joint. IMPRESSION: Cardiomegaly, mild vascular congestion Approved by: Joey Maria M.D. on 01/24/2023 at 11:07
--- NOTE | 2023-01-24 10:56 | ED_ITS ---
HPI - General Adult General Chief complaint: Weakness Stated complaint: bilat LE swelling Time Seen by Provider: 01/24/23 10:54 History of Present Illness HPI narrative: 82-year-old female with history of AFib on warfarin, hypertension, hyperlipidemia, abdominal wall hernia with recent hospitalization due to what was initially thought to be incarcerated hernia with small-bowel obstruction and a mobile cecum and subsequent repair of incarcerated incisional hernia through an old open cholecystectomy scar returns to the emergency department with a chief complaint of generalized weakness and swelling of her bilateral lower extremities. Her weakness is sufficient to require multiple assistance to help her stand and transfer which is a departure from her baseline. She states she is had a poor appetite and though she denies any dizziness upon standing she does feel quite weak. She states that her left foot and leg hurt but also feel weak. She denies any known injury. She states she has been passing gas but still has not had a bowel movement since before the surgery. Related Data Home Medications Medication Instructions Recorded Confirmed warfarin 7.5 mg tablet (Coumadin) 7.5 mg PO QDAY ##0 11/29/12 01/19/23 [COQ10] 100 mg PO DAILY ##0 02/12/17 01/19/23 calcium carbonate 650 mg calcium 650 mg PO PRN PRN Acid Reflux ##0 02/12/17 01/19/23 (1,625 mg) tablet docusate sodium 100 mg capsule 100 mg PO BIDP PRN Constipation ##0 02/12/17 01/19/23 glucosamine 1 ea PO DAILY ##0 02/12/17 01/19/23 sulfate-methylsulfonylmethane 250 mg-250 mg capsule atorvastatin 20 mg tablet 20 mg PO DAILY 03/13/18 01/19/23 carvedilol 12.5 mg tablet 12.5 mg PO BID 03/13/18 01/19/23 benzonatate 100 mg capsule 100 mg PO TID PRN Cough 01/19/23 01/19/23 carboxymethylcellulose sodium 1 % 1 drp ophthalmic (eye) BID PRN Dry 01/19/23 01/19/23 eye liquid gel drops Eyes cholecalciferol (vitamin D3) 25 25 mcg PO DAILY 01/19/23 01/19/23 mcg (1,000 unit) tablet docusate sodium 100 mg capsule 300 mg PO BID 01/19/23 01/19/23 losartan 50 mg tablet 50 mg PO BID 01/19/23 01/19/23 omeprazole 20 mg PO DAILY 01/19/23 01/19/23 vitamins A,C,X-aqgg-hsjaif 4,296 1 cap PO BID 01/19/23 01/19/23 mcg-226 mg-90 mg capsule (PreserVision AREDS) Previous Rx's Medication Instructions Recorded amlodipine 5 mg tablet (Norvasc) 5 mg PO DAILY #30 tabs 01/22/23 ondansetron 4 mg disintegrating 4 mg PO Q8H #20 tabs 01/22/23 tablet oxycodone 5 mg tablet 5 mg PO Q3H PRN Pain, Moderate 01/22/23 (4-6) #20 tabs Allergies Allergy/AdvReac Type Severity Reaction Status Date / Time No Known Drug Allergies Allergy Verified 01/21/23 15:00 Review of Systems Review of Systems Narrative: GENERAL: See HPI HEENT: Denies sinus pain, ear pain, sore throat, difficulty swallowing, dizziness. RESPIRATORY: Denies dyspnea, cough, wheezing, hemoptysis, sputum. CARDIOVASCULAR: Denies chest pain, palpitations, orthopnea, edema, GASTROINTESTINAL: See HPI : Denies dysuria, frequency, incontinence, hematuria, urinary retention. MUSCULOSKELETAL: See HPI SKIN: Denies rash, skin lesions, or other NEUROLOGIC: Denies weakness, headache, numbness, change in speech, confusion, seizures, incoordination. PSYCHIATRIC: No concerning psychosocial issues. 12 point review of systems is negative except for those stated above Patient History Medical History Abdominal wall hernia Abnormal colonoscopy Adenomatous colon polyp Allergic rhinitis Atrial fibrillation Coronary atherosclerosis GERD (gastroesophageal reflux disease) Heart murmur Hiatal hernia Hypercoagulability due to atrial fibrillation Hyperlipidemia Hypertension Incisional hernia Pacemaker Prediabetes Primary osteoarthritis Subclinical hyperthyroidism Surgical History H/O heart surgery History of tonsillectomy and adenoidectomy Hx of cholecystectomy Family History Mother No pertinent past medical history Father No pertinent past medical history Social History household members: spouse Smoking Status: Never smoker Smoking Status: Never smoker alcohol intake frequency: 0-2 drinks per day Substance Use Type: does not use Exam Narrative Exam Narrative: GENERAL: [82] year old patient appears stated age. Well-developed patient, in mild distress. HEAD: Atraumatic. Normocephalic. EYES: Pupils equal round and reactive. Extraocular motions intact. No scleral icterus. No injection or drainage. ENT: Dry mucous membranes Nose without bleeding, purulent drainage. Throat without erythema, tonsillar hypertrophy or exudate. Airway patent. NECK: Trachea midline. Non tender CARDIOVASCULAR: Irregular rate and rhythm rhythm without murmurs, gallops, or rubs. RESPIRATORY: Clear to auscultation. Breath sounds equal bilaterally. No wheezes, rales, or rhonchi. . ABD: Minimally distended, bowel sounds present but decreased throughout EXTREMITIES: Minimal swelling, some erythema of the left foot, minimal tenderness in left calf, no pain or obvious swelling of right lower extremity BACK: Nontender without deformity or crepitance. No flank tenderness. NEURO: AOx3. SKIN: Poor skin turgor. No rash or erythema of visible areas Initial Vital Signs Initial Vital Signs: Vital Signs Temperature 97.7 F 01/24/23 10:52 Pulse Rate 102 H 01/24/23 10:52 Respiratory Rate 20 01/24/23 10:52 Blood Pressure 195/84 H 01/24/23 10:52 Pulse Oximetry 96 01/24/23 10:52 Oxygen Delivery Method Room Air 01/24/23 10:52 Course Orders Ordered: ED Orders 01/24/23 10:55 XR acute abdomen series Stat 01/24/23 11:08 Complete Blood Count AUTO DIFF Stat Comprehensive Metabolic Panel Stat Lipase Stat Magnesium Stat NT-proBNP (BNP-Adult 18+) Stat PTT Partial Thromboplastin Rene Stat Prothrombin Time INR Stat Troponin & CK Cardiac Panel Stat 01/24/23 12:26 US periph venous low extrem lt Stat 01/24/23 12:55 Consult to Physical Therapy Evaluate & Treat 01/24/23 13:52 Consult to Physical Therapy Evaluate & Treat 01/24/23 14:55 Consult to LEARNING AND DEVELOPMENT SPECIALIST - Medical Lab Director Stat 01/24/23 14:56 Urine Culture Stat Urine Microscopic Stat 01/24/23 16:27 COVID19 -Nasal RAPID Stat Sodium Chloride (Normal Saline 0.9%) 1,000 mls @ 100 mls/hr IV BOLUS ONE Stop: 01/25/23 02:14 Last Infusion: 01/24/23 16:57 Dose: 100 mls/hr Documented By: Admin: 01/24/23 16:45 Dose: 100 mls/hr Documented By: DEIDRE Discontinued Medications Carvedilol (Carvedilol 12.5 Mg Tablet) 12.5 mg PO NOW ONE Stop: 01/24/23 15:33 Last Admin: 01/24/23 15:49 Dose: 12.5 mg Documented By: DEIDRE Sodium Chloride (Normal Saline 0.9%) 500 mls @ 1,000 mls/hr IV BOLUS ONE Stop: 01/24/23 12:55 Last Infusion: 01/24/23 13:03 Dose: 0 mls/hr Documented By: Admin: 01/24/23 12:31 Dose: 1,000 mls/hr Documented By: MARISELA Sodium Chloride (Normal Saline 0.9%) 500 mls @ 1,000 mls/hr IV BOLUS ONE Stop: 01/24/23 15:25 Last Infusion: 01/24/23 15:49 Dose: 0 mls/hr Documented By: Admin: 01/24/23 15:18 Dose: 1,000 mls/hr Documented By: DEIDRE Ceftriaxone Sodium 2,000 mg/ (Sodium Chloride) 100 mls @ 200 mls/hr IV NOW ONE Stop: 01/24/23 16:32 Last Infusion: 01/24/23 16:58 Dose: 200 mls/hr Documented By: Admin: 01/24/23 16:44 Dose: 200 mls/hr Documented By: DEIDRE Losartan Potassium (Losartan 50 Mg Tablet) 50 mg PO NOW ONE Stop: 01/24/23 15:34 Last Admin: 01/24/23 15:49 Dose: 50 mg Documented By: DEIDRE Vital Signs Vital signs: Vital Signs - 8 hr 01/24/23 10:52 01/24/23 10:54 01/24/23 10:54 Temperature 97.7 F Pulse Rate 102 H 118 H Respiratory Rate 20 Blood Pressure 195/84 H 195/84 H Pulse Oximetry 96 95 Oxygen Delivery Method Room Air 01/24/23 11:00 01/24/23 11:00 01/24/23 11:35 Temperature Pulse Rate 98 H 95 H Respiratory Rate Blood Pressure 166/76 H Pulse Oximetry 95 94 Oxygen Delivery Method 01/24/23 11:37 01/24/23 11:37 01/24/23 11:45 Temperature Pulse Rate 93 H 95 H Respiratory Rate 32 H 28 H Blood Pressure 176/74 H Pulse Oximetry 95 93 Oxygen Delivery Method 01/24/23 11:45 01/24/23 12:00 01/24/23 12:00 Temperature Pulse Rate 96 H Respiratory Rate 27 H Blood Pressure 167/75 H 159/68 H Pulse Oximetry 92 Oxygen Delivery Method 01/24/23 12:15 01/24/23 12:15 01/24/23 12:30 Temperature Pulse Rate 91 H Respiratory Rate 27 H Blood Pressure 145/65 H 159/68 H Pulse Oximetry 91 Oxygen Delivery Method 01/24/23 12:30 01/24/23 12:45 01/24/23 12:45 Temperature Pulse Rate 94 H 94 H Respiratory Rate 27 H 29 H Blood Pressure 163/71 H Pulse Oximetry 92 93 Oxygen Delivery Method 01/24/23 13:00 01/24/23 13:30 01/24/23 14:02 Temperature Pulse Rate 93 H 91 H 91 H Respiratory Rate 28 H 29 H Blood Pressure Pulse Oximetry 93 94 Oxygen Delivery Method 01/24/23 14:05 01/24/23 14:05 01/24/23 14:20 Temperature Pulse Rate 95 H 96 H Respiratory Rate 34 H Blood Pressure 163/70 H Pulse Oximetry 94 94 Oxygen Delivery Method 01/24/23 14:20 01/24/23 14:35 01/24/23 14:39 Temperature Pulse Rate 102 H 96 H Respiratory Rate 37 H 34 H Blood Pressure 176/77 H Pulse Oximetry 92 93 Oxygen Delivery Method 01/24/23 14:39 01/24/23 15:00 01/24/23 15:01 Temperature Pulse Rate 95 H 96 H Respiratory Rate 33 H 32 H Blood Pressure 174/79 H Pulse Oximetry 93 93 Oxygen Delivery Method 01/24/23 15:01 01/24/23 15:17 01/24/23 15:17 Temperature Pulse Rate 98 H Respiratory Rate 33 H Blood Pressure 202/81 H 211/82 H Pulse Oximetry 93 Oxygen Delivery Method 01/24/23 15:30 01/24/23 16:00 01/24/23 16:01 Temperature Pulse Rate 94 H 99 H 97 H Respiratory Rate 36 H 32 H 35 H Blood Pressure Pulse Oximetry 94 92 92 Oxygen Delivery Method Room Air 01/24/23 16:01 01/24/23 16:30 Temperature Pulse Rate 93 H Respiratory Rate 30 H Blood Pressure 174/83 H Pulse Oximetry 92 Oxygen Delivery Method Medical Decision Making Lab Data 01/24/23 11:08 01/24/23 11:08 Labs: Lab Results 01/24/23 01/24/23 01/24/23 Range/Units 11:08 11:08 11:08 WBC 12.2 H (4.5-11.0) X10^3/uL RBC 4.34 (4.0-5.2) X10^6/uL Hgb 12.8 (12.0-16.0) g/dL Hct 38.6 (36-46) % MCV 88.9 (80-100) fL MCH 29.5 (26-34) PG MCHC 33.1 (30-36) % RDW 14.5 (11.6-14.8) % Plt Count 198 (150-400) X10^3/uL Neut % (Auto) 84.9 H (50-75) % Lymph % (Auto) 4.7 L (25-40) % [place] % (Auto) 9.8 (3-14) % Eos % (Auto) 0.2 L (2-4) % Baso % (Auto) 0.4 (0-2) % Neut # (Auto) 75278 H (0537-0012) /uL Lymph # (Auto) 600 L (1625-1644) /uL [place] # (Auto) 1200 H (0-900) /uL Eos # (Auto) 0 (0-450) /uL Baso # (Auto) 0 (0-100) /uL PT 17.0 H (10.1-12.7) SECONDS INR 1.5 H (0.9-1.3) APTT 31 (26-36) SECONDS Sodium 136 L (137-145) mmol/L Potassium 3.8 (3.4-5.1) mmol/L Chloride 97 L (98-107) mmol/L Carbon Dioxide 32 (22-32) mmol/L BUN 13 (7-17) mg/dL Creatinine 0.49 L (0.52-1.04) mg/dL Estimated GFR > 60 (>60) mL/min BUN/Creatinine Ratio 26.5 H (6-22) Glucose 156 H (80-110) mg/dL Calcium 8.5 (8.4-10.2) mg/dL Magnesium 2.0 (1.6-2.3) mg/dL Total Bilirubin 1.5 H (0.2-1.3) mg/dL AST 21 (14-36) IU/L ALT 16 (<35) IU/L Alkaline Phosphatase 82 (38-126) U/L Total Creatine Kinase (30-135) U/L CK-MB (CK-2) CK-MB (CK-2) Rel Index Troponin I (0.01-0.034) ng/mL NT-Pro-B Natriuret Pep 908 H (<450) pg/mL Total Protein 7.4 (6.3-8.2) g/dL Albumin 3.8 (3.5-5.0) g/dL Globulin 3.6 (1.7-4.1) g/dL Albumin/Globulin Ratio 1.1 (1.0-2.8) Lipase 64 (23-300) U/L Urine RBC (0-5/HPF) Urine WBC (0-5/HPF) Ur Squamous Epith Cells (0-5/HPF) Ur Transition Epith Cell (0-5/HPF) Urine Bacteria (None) Urine Mucus (Negative) Ur Culture Indicated? SARS-CoV-2 (PCR) (Negative) 01/24/23 01/24/23 01/24/23 Range/Units 11:08 14:56 16:27 WBC (4.5-11.0) X10^3/uL RBC (4.0-5.2) X10^6/uL Hgb (12.0-16.0) g/dL Hct (36-46) % MCV (80-100) fL MCH (26-34) PG MCHC (30-36) % RDW (11.6-14.8) % Plt Count (150-400) X10^3/uL Neut % (Auto) (50-75) % Lymph % (Auto) (25-40) % [place] % (Auto) (3-14) % Eos % (Auto) (2-4) % Baso % (Auto) (0-2) % Neut # (Auto) (6006-0590) /uL Lymph # (Auto) (1266-4114) /uL [place] # (Auto) (0-900) /uL Eos # (Auto) (0-450) /uL Baso # (Auto) (0-100) /uL PT (10.1-12.7) SECONDS INR (0.9-1.3) APTT (26-36) SECONDS Sodium (137-145) mmol/L Potassium (3.4-5.1) mmol/L Chloride (98-107) mmol/L Carbon Dioxide (22-32) mmol/L BUN (7-17) mg/dL Creatinine (0.52-1.04) mg/dL Estimated GFR (>60) mL/min BUN/Creatinine Ratio (6-22) Glucose (80-110) mg/dL Calcium (8.4-10.2) mg/dL Magnesium (1.6-2.3) mg/dL Total Bilirubin (0.2-1.3) mg/dL AST (14-36) IU/L ALT (<35) IU/L Alkaline Phosphatase (38-126) U/L Total Creatine Kinase 40 (30-135) U/L CK-MB (CK-2) TNP CK-MB (CK-2) Rel Index TNP Troponin I < 0.012 (0.01-0.034) ng/mL NT-Pro-B Natriuret Pep (<450) pg/mL Total Protein (6.3-8.2) g/dL Albumin (3.5-5.0) g/dL Globulin (1.7-4.1) g/dL Albumin/Globulin Ratio (1.0-2.8) Lipase (23-300) U/L Urine RBC 0-1/hpf (0-5/HPF) Urine WBC 10-30/hpf H (0-5/HPF) Ur Squamous Epith Cells 5-10 /hpf H (0-5/HPF) Ur Transition Epith Cell 1-5/hpf (0-5/HPF) Urine Bacteria Moderate (10-30) H (None) Urine Mucus 1+ H (Negative) Ur Culture Indicated? Specimen cultured SARS-CoV-2 (PCR) Negative (Negative) Urine Dip Bedside Urine Glucose Negative Bedside Urine Bilirubin - Negative Bedside Urine Ketone ++ 40 Urine Specific Adger 1.030 Bedside Urine Occult Blood ++ Bedside Urine pH 6.0 Bedside Urine Protein ++ 100 Bedside Urine Urobilinogen +/- 1mg Bedside Urine Nitrite - Negative Bedside Urine Leukocytes - Negative Esterase Point of care testing: Urine Dip Bedside Urine Glucose Negative Bedside Urine Bilirubin - Negative Bedside Urine Ketone ++ 40 Urine Specific Adger 1.030 Bedside Urine Occult Blood ++ Bedside Urine pH 6.0 Bedside Urine Protein ++ 100 Bedside Urine Urobilinogen +/- 1mg Bedside Urine Nitrite - Negative Bedside Urine Leukocytes - Negative Esterase Discharge Plan Departure Patient Disposition: Admitted as Observation Clinical Impression: Weakness, Acute dehydration, Acute UTI Admit Date/Time: 01/24/23 16:30 Admit Provider: Lorne Hdz
[2023-01-24 11:16] LABS: Add Manual Diff / Slide Review NO; Basophils Absolute Auto 0 /uL (0-100); Basophils Percent Auto 0.4 % (0-2); Eosinophils Absolute Auto 0 /uL (0-450); Eosinophils Percent Auto 0.2 % (2-4); Hematocrit 38.6 % (36-46); Hemoglobin 12.8 g/dL (12.0-16.0); Lymphocytes Absolute Auto 600 /uL (1100-4500); Lymphocytes Percent Auto 4.7 % (25-40); Mean Corpuscular HGB Conc 33.1 % (30-36); Mean Corpuscular Hemoglobin 29.5 PG (26-34); Mean Corpuscular Volume 88.9 fL (80-100); Monocytes Absolute Auto 1200 /uL (0-900); Monocytes Percent Auto 9.8 % (3-14); Neutrophils Absolute Auto 10300 /uL (1500-7000); Neutrophils Percent Auto 84.9 % (50-75); Platelet Count 198 X10^3/uL (150-400); Red Blood Cell Count 4.34 X10^6/uL (4.0-5.2); Red Cell Distribution Width 14.5 % (11.6-14.8); White Blood Cell Count 12.2 X10^3/uL (4.5-11.0)
[2023-01-24 11:26] LABS: INR 1.5 (0.9-1.3)
[2023-01-24 11:28] LABS: PTT Partial Thromboplastin Tim 31 SECONDS (26-36)
[2023-01-24 11:29] LABS: Alanine Aminotransferase 16 IU/L (<35); Albumin 3.8 g/dL (3.5-5.0); Albumin Globulin Ratio 1.1 (1.0-2.8); Alkaline Phosphatase 82 U/L (38-126); Aspartate Aminotransferase 21 IU/L (14-36); BUN Creatinine Ratio 26.5 (6-22); Bilirubin Total 1.5 mg/dL (0.2-1.3); Blood Urea Nitrogen 13 mg/dL (7-17); Calcium 8.5 mg/dL (8.4-10.2); Carbon Dioxide 32 mmol/L (22-32); Chloride 97 mmol/L (98-107); Creatine Kinase 40 U/L (30-135); Estimated Glomerular Filt Rate > 60 mL/min (>60); Globulin 3.6 g/dL (1.7-4.1); Glucose 156 mg/dL (80-110); HEMOLYSIS < 15 (0-50); Lipase 64 U/L (23-300); Potassium 3.8 mmol/L (3.4-5.1); Sodium 136 mmol/L (137-145); Total Protein 7.4 g/dL (6.3-8.2)
[2023-01-24 11:37] LABS: NT-proBNP (BNP-Adult 18+) 908 pg/mL (<450)
[2023-01-24 11:40] LABS: Troponin I < 0.012 ng/mL (0.01-0.034)
--- NOTE | 2023-01-24 12:26 | DI.US.S_ITS ---
PROCEDURE: US PERIPH VENOUS LOW EXTREM LT INDICATIONS: LLE pain, minimal swelling, redness, recent surgery/hosp TECHNIQUE: Real-time imaging, as well as color and pulse Doppler interrogation, were performed of the lower extremity deep veins from the inguinal ligament to the popliteal fossa. COMPARISON: None. FINDINGS: The common femoral, femoral and popliteal veins are normally compressible, and free of intraluminal thrombus. Color and pulse Doppler demonstrate normal phasic intraluminal flow. There is normal augmentation response to distal compression maneuver. IMPRESSION: No deep venous thrombosis in the visualized lower extremity. Dictated by: Lorenzo Barnett M.D. on 01/24/2023 at 13:03 Approved by: Lorenzo Barnett M.D. on 01/24/2023 at 13:04
[2023-01-24] MEDS: SODIUM CHLORIDE 0.9% 500 ML 1000 ML IV ×2 (12:31→15:18)
--- NOTE | 2023-01-24 13:19 | PT-IP ANOTE ---
Received PT orders. ED called to report they no longer needed PT eval. Will complete the orders. Please order again if PT assessment is indicated.
--- NOTE | 2023-01-24 14:47 | PT.IIE ---
Surgical History (Last Reviewed 01/24/23 @ 12:25 by Ki Cortez DO) H/O heart surgery History of tonsillectomy and adenoidectomy Hx of cholecystectomy Medical History (Last Reviewed 01/24/23 @ 12:25 by Ki Cortez DO) Abdominal wall hernia Abnormal colonoscopy Adenomatous colon polyp Allergic rhinitis Atrial fibrillation Coronary atherosclerosis GERD (gastroesophageal reflux disease) Heart murmur Hiatal hernia Hypercoagulability due to atrial fibrillation Hyperlipidemia Hypertension Incisional hernia Pacemaker Prediabetes Primary osteoarthritis Subclinical hyperthyroidism Physical Therapy Inpatient Evaluation/Re-Eval M1 PT/OT-IP Prior Functional Status Start: 01/24/23 13:53 Freq: Status: Active Protocol: Document 01/24/23 14:47 AW (Rec: 01/24/23 15:37 AW [id number]) Medical Review Prior Functional Status Medical History Reviewed Yes Communication WNL. Pt is an effective verbal communicator. Mobility and Gait Independent without assistive device inside the house. Pt uses a SPC outside the house primarily due poor vision secondary to macular degeneration. Activities of Daily Living and IADL's Independent with ADL's. Pt and her spouse both contribute to household management. Pt does not drive due to poor vision. Prior Functional Level (Other details) PMH includes tachy bk syndrome s/p PPM, atrial fibrillation (on warfarin), hypertension, hyperlipidemia, and remote open cholecystectomy. She underwent repair of incarcerated hernia on 01/21/23 and discharged home on 01/22/23. Social History Household Members spouse Living Arrangements House Number of Floors (Floors) One Floor Number of Stairs To Enter/Railing? 2 DALILA with something to hold on to through the garage. At front entrance, there are 4 DALILA with a railing. Home Environment Standard Height Toilet,Walk in Shower,Built-In Shower Seat Home Equipment Straight Cane,Grab Bars Near Toilet Employment Status Retired Additional Social History Comment Pt lives in [place] with her spouse, [place]. M2 PT-IP Current Condition Start: 01/24/23 13:53 Freq: Status: Active Protocol: Document 01/24/23 14:47 AW (Rec: 01/24/23 15:37 AW [id number]) Physical Therapy Current Condition Current Condition Evaluation Date 01/24/23 Treatment Diagnosis generalized weakness; impaired mobility and gait Onset Date 01/24/23 M3 PT-IP Subjective Start: 01/24/23 13:53 Freq: Status: Active Protocol: Document 01/24/23 14:47 AW (Rec: 01/24/23 15:37 AW [id number]) Subjective Physical Therapy Visit Type Type Initial Evaluation Visit Start Time 14:10 Visit Stop Time 14:41 Total Visit Minutes 31 Notes Pt was seen in the ED. Her spouse was at bedside. Physical Therapy Visit Comments Patient Comments Pt consents to PT assessment. Patient Goals Improve strength for return to independent mobility Therapy Pain Assessment Pain When Pain Assessed During Mobility Pain Present Pain Present Pain Reported M4 PT-IP Mobility and Gait Start: 01/24/23 13:53 Freq: Status: Active Protocol: Document 01/24/23 14:47 AW (Rec: 01/24/23 15:37 AW [id number]) PT-Bed Mobility Assessment Rolling Type of Rolling Log Rolling Level of Assist Moderate Assistance Supine to Sit Supine to Sit Moderate Assistance,1 Person Assistance Sit to Supine Sit to Supine Moderate Assistance,1 Person Assistance PT-Transfer Assessment Sit to and From Stand Sit to and from Stand Contact Guard Assistance, Minimal Assistance Equipment Transfer Assistive Device Gait Belt,Front Wheeled Walker Orthotic/Prosthetic Devices or Brace: No Transfers Transfer Destination Bed Transfer Technique Stand Step Pivot Transfer Ability Level of Assist Minimal Assistance Comments Mobility Comments Pt was lying on the gurney as PT arrived. VS at rest were: BP 176/66 HR 92 SpO2 94%. Pt reported pain in both feet, both knees, and in her side. Educated pt on abdominal precautions including log roll for bed mobility. Pt needed mod assist for log roll toward her right side and to sit up at the edge of the bed. She complained of abdominal/flank pain during transition but was able to sit up with good seated balance. Pt stood with CGA/min assist and used FWW to steady herself. She used her lower legs to brace herself against the gurney and was unable to fully extend her hips. Instructed pt to sit. Cued pt to pull her feet closer to the gurney before attempting to stand again. She stood with slightly improved weight distribution and was able to shift weight forward with heavy UE weightbearing on the walker. She complained of bilateral foot and ankle pain but agreed to attempt walking with FWW. She took 4 steps forward and needed to return to sitting at edge of bed. See gait comments. PT provided mod assist for pt to return to supine via log roll. Gait Assessment Gait Gait Assistance Required: Minimum Assistance Distance (Feet) 5 Assistive Devices Assistive Device Gait Belt,Front Wheeled Walker Gait Deviations General Gait Pattern Antalgic,Decreased Stride Length,Decreased Feet Clearance,Flexed Trunk,Wide Based Gait Factors Limiting Gait Function Factors Limiting Gait Function Decreased Strength,Pain Comments Gait Comments Gait assessment noted poor LE elevation bilaterally (left more affected than right). Assist and cues were required for weightshifting and LE advancement. Pt had (+) knee buckling bilaterally. Stair Climbing Assessment Comments Stair Climbing Comments Unable at this time. PT-Balance Assessment Sitting Balance and Reactions Static Sitting Balance Ability Normal Dynamic Sitting Balance Ability Good Standing Balance and Reactions Static Standing Balance Ability Fair Dynamic Standing Balance Ability Poor Device Used FWW M5 PT-IP Objective Assessments Start: 01/24/23 13:53 Freq: Status: Active Protocol: Document 01/24/23 14:47 AW (Rec: 01/24/23 15:37 AW [id number]) Orientation Orientation/Cognition Level of Alertness Alert Orientation Name,Day of Week,Place, Situation Language Function Ability No Deficits Noted Safety Awareness Understands Safety Issues Memory Description No Deficits Noted Gross Range of Motion Upper Extremity ROM Assessment Within Functional Limits Lower Extremity ROM Assessment Within Functional Limits Strength Lower Extremity Strength Assessment Bilaterally Impaired Hip R flexion 4/5; L flexion 3-/5 Knee R 4/5; L 3+/5 Ankle R 4+/5; L 4-/5 Coordination Assessment Gross Coordination Gross Coordination WNL Assessment Finger to Nose Test Normal Performance Foot Tapping Test Normal Performance Heel on Zepeda Test Normal Performance Sensation Assessment Sensation Gross Sensation WNL M6 PT-IP Treatment Start: 01/24/23 13:53 Freq: Status: Active Protocol: Document 01/24/23 14:47 AW (Rec: 01/24/23 15:37 AW [id number]) Physical Therapy Treatment Education Education Provided Safety Other Treatments Other Treatment Performed Recommended use of FWW for transfers at this time. M7 PT-IP Assessment and Plan Start: 01/24/23 13:53 Freq: Status: Active Protocol: Document 01/24/23 14:47 AW (Rec: 01/24/23 15:37 AW [id number]) PT Summary Assessment and Plan Potential Rehabilitation Potential Good Status of Condition at Evaluation Evolving Summary Impairments Pain,Strength,Balance,Bed Mobility,Transfers,Gait Assessment Summary Lenka is an 82 yo woman presenting to the ED with generalized weakness, multiple arthralgias, and swelling in bilateral feet which are affecting her mobility. She was admitted to the hospital last week for repair of an incarcerated incisional history (remote history of open cholecystectomy). She discharged home on 01/22/23 and had pain and progressive weakness culminating in poor activity tolerance and increase in need for mobility assist. At baseline, she is independent without assistive device in her home. She does use a cane in the community due to reduced vision as a consequence of macular degeneration. CLOF: Pt was found resting on the ED gurney with her spouse at bedside. She consented to PT evaluation. She presents with BLE weakness (left more affected than right). Coordination and sensation were all grossly normal. Pt denied dizziness and vision changes. Pt reported bilateral foot and knee pain as well as abdominal/flank pain. Educated pt on abdominal precautions including log roll for bed mobility. She needed mod assist for all bed mobility and was only able to walk ~5 feet with FWW and significant assist for weight shifting and stability. Pt is significantly debilitated compared with baseline function and is not safe for the home environment at this time. PT recommends daily skilled therapy to improve strength and mobility independence. Pt would benefit from SNF placement pending medical stability. Goals Bed Mobility Goal Standby Assistance Transfer Goal Standby Assistance,Front Wheeled Walker Gait Goal Standby Assistance,Front Wheel Walker Gait Distance 100 Other Goals - Up/down 2 steps with single railing - Pt will improve transfers and gait to IND with LRAD Days to Meet Goals 7 Frequency of Treatment Frequency Of Treatment Once a Day Treatment Plan Physical Therapy Treatment Plan Bed Mobility Training,Transfer Training,Gait Training, Therapeutic Exercise,Balance Retraining,Post Op Education, Discharge Planning,Hot or Cold Pack,Neuromuscular Re-ed Other Recommendations and Next Treatment reinforce education on Focus abdominal precautions; transfer trainin; gait with FWW as tolerated Precautions Abdominal Surgery Precautions Log Roll,Lifting Restrictions, Gait Belt above Incisional Area Recommendations To Nursing Amount of Assist Needed 1 Person Assist Discharge Recommendations PT Discharge Recommendations SNF Rehab Equipment Needed for Home Before FWW if going home Discharge Transportation Needs at Discharge Wheelchair/Cabulance
[2023-01-24 15:12] LABS: Bacteria Urine Moderate (10-30); Culture Indicated Urine Specimen Cultured; Mucus Urine 1+ (Negative); RBC Urine 0-1/HPF (0-5/HPF); Squamous Epithelial Cell Urine 5-10 /HPF (0-5/HPF); Transitional Epi Cells Urine 1-5/HPF (0-5/HPF); WBC Urine 10-30/HPF (0-5/HPF)
--- NOTE | 2023-01-24 15:47 | CM.DANOTE ---
Patient is an 82 yo female who was a READMIT to [place] ED today 01/24/23 for bilat swelling. Pt has [employer] for insurance and her PCP is Марина Brody. EMR was reviewed. Per ED MS RYANW consult placed as pt failed PT eval for ambulation and needing d/c planning. Pt with UTI and currently getting IV-Abx and fluids. Per PT, pt was only able to stand briefly and not really ambulate. Pt was recently admitted 01/19/23-01/22/23 Inpt Status for surgical intervention and was Inpt Status and had 3 night qualifying stay under Medicare. Pt was discharged home with spouse assist and no needs. SW met bedside with pt and spouse and explained role and they confirm pt is independent with ADLs at baseline and does not typically use DME and is below baseline with pain in her side and feet and spouse has been pt's primary caregiver since d/c to home from surgery. Family lives [place] towards [facility] but have local friends. SW discussed possible d/c options including SNF under Medicare as pt is a readmit, home with HH and asking family to stay and assist, or hiring private caregivers and having HH. Spouse confirms they also have LTC insurance and SW discussed process of calling PP agencies and their LTC insurance to see about coverage and criteria. Pt and spouse both state right now they feel SNF needed. SW provided SNF Choice list and they are agreeable with referrals to [facility], [facility], [facility]. SW spoke to [facility] and they will review but only one opening tomorrow and may be taken already. [facility] and they reviewed and confirm they could accept tomorrow. [facility] was faxed new referral as backup. Plan: SW to follow closely for likely plan of d/c tomorrow 01/25/23 to [facility] pending bed availability and pt being medically stable. PASRR needed. EVERETT Pittman
[2023-01-24] MEDS: carvediloL 12.5 MG TABLET PO ×2 (15:49→20:52)
[2023-01-24] MEDS: LOSARTAN 50 MG TABLET PO ×2 (15:49→20:52)
[2023-01-24] MEDS: cefTRIAXone 2,000 MG in SODIUM CHLORIDE 0.9% 100 ML 200 MG IV (16:44)
[2023-01-24] MEDS: SODIUM CHLORIDE 0.9% 1,000 ML 100 ML IV (16:45)
[2023-01-24 17:03] LABS: COVID19 -Nasal RAPID Negative (Negative)
--- NOTE | 2023-01-24 17:23 | P.HP_ITS ---
History of Present Illness History of Present Illness Date Patient Seen: 01/24/23 Time Patient Seen: 17:23 Chief complaint: bilat LE swelling Narrative: This is an 82 year old female with PMH of tachy-bk syndrome s/p PPM, chronic atrial fibrillation on coumadin, HTN, HLD, prior heart surgery (unsure if ASD or VSD repair) long history of abdominal hernia who was recently discharged 2 days ago after an abdominal wall hernia repair. She has not had a bowel movement since prior to surgery, but is passing some gas. She presented today with bilateral lower extremity weakness and difficulty ambulating. She denies dysuria or urinary frequency, but was having frequent urination in the hospital. She denies chest pain, fever, abdominal pain, shortness of breath. Her lower extremities are a bit swollen, but there is no pain. In the emergency room, her vital signs were notable for hypertension, and mild tachypnea,, though her oxygen saturation was normal on room air. Imaging is negative for bilateral lower extremity DVTs, but chest and abdominal x-ray show ed no acute abdominal pathology but did show mild vascular congestion in the lungs. Laboratory evaluation was notable for a mild leukocytosis with WBC 12.2, her INR was mildly subtherapeutic at 1.5 as her Coumadin had been held for surgery but resumed after. Chemistries were fairly unremarkable except for mild elevation in her bilirubin at 1.5 troponin was negative. ProBNP was slightly elevated at 908 lipase was within normal limits. Urinalysis was notable for 10- 30 wbc's, though she did have 5-10 squamous cells and moderate bacteria, specimen was reflex for culture. COVID-19 negative. Patient was admitted after physical therapy evaluation and despite initial antibiotics, fluid in the emergency room. [facility] Medical History Abdominal wall hernia Abnormal colonoscopy Adenomatous colon polyp Allergic rhinitis Atrial fibrillation Coronary atherosclerosis GERD (gastroesophageal reflux disease) Heart murmur Hiatal hernia Hypercoagulability due to atrial fibrillation Hyperlipidemia Hypertension Incisional hernia Pacemaker Prediabetes Primary osteoarthritis Subclinical hyperthyroidism Surgical History H/O heart surgery History of tonsillectomy and adenoidectomy Hx of cholecystectomy Family History Mother No pertinent past medical history Father No pertinent past medical history Social History household members: spouse Smoking Status: Never smoker alcohol intake: current Meds Home Medications and Allergies Home Medications Medication Instructions Recorded Confirmed Type warfarin 7.5 mg tablet (Coumadin) 7.5 mg PO QDAY ##0 11/29/12 01/24/23 History [COQ10] 100 mg PO DAILY ##0 02/12/17 01/24/23 History calcium carbonate 650 mg calcium 650 mg PO PRN PRN Acid Reflux ##0 02/12/17 01/24/23 History (1,625 mg) tablet docusate sodium 100 mg capsule 100 mg PO BIDP PRN Constipation ##0 02/12/17 01/24/23 History glucosamine 1 ea PO DAILY ##0 02/12/17 01/24/23 History sulfate-methylsulfonylmethane 250 mg-250 mg capsule atorvastatin 20 mg tablet 20 mg PO DAILY 03/13/18 01/24/23 History carvedilol 12.5 mg tablet 12.5 mg PO BID 03/13/18 01/24/23 History benzonatate 100 mg capsule 100 mg PO TID PRN Cough 01/19/23 01/24/23 History carboxymethylcellulose sodium 1 % 1 drp ophthalmic (eye) BID PRN Dry 01/19/23 01/24/23 History eye liquid gel drops Eyes cholecalciferol (vitamin D3) 25 25 mcg PO DAILY 01/19/23 01/24/23 History mcg (1,000 unit) tablet docusate sodium 100 mg capsule 300 mg PO BID 01/19/23 01/24/23 History losartan 50 mg tablet 50 mg PO BID 01/19/23 01/24/23 History omeprazole 20 mg PO DAILY 01/19/23 01/24/23 History vitamins A,C,G-noji-vhawwm 4,296 1 cap PO BID 01/19/23 01/24/23 History mcg-226 mg-90 mg capsule (PreserVision AREDS) amlodipine 5 mg tablet (Norvasc) 5 mg PO DAILY #30 tabs 01/22/23 01/24/23 Rx ondansetron 4 mg disintegrating 4 mg PO Q8H #20 tabs 01/22/23 01/24/23 Rx tablet oxycodone 5 mg tablet 5 mg PO Q3H PRN Pain, Moderate 01/22/23 01/24/23 Rx (4-6) #20 tabs Allergies Allergy/AdvReac Type Severity Reaction Status Date / Time No Known Drug Allergies Allergy Verified 01/21/23 15:00 Review of Systems Review of Systems Narrative: All other systems reviewed with the patient and are negative unless otherwise stated. Exam Vital Signs (past 8 hours): - 01/24/23 10:52 01/24/23 10:54 01/24/23 10:54 Temperature 97.7 F Pulse Rate 102 H 118 H Respiratory Rate 20 Blood Pressure 195/84 H 195/84 H Pulse Oximetry 96 95 Oxygen Delivery Method Room Air 01/24/23 11:00 01/24/23 11:00 01/24/23 11:35 Temperature Pulse Rate 98 H 95 H Respiratory Rate Blood Pressure 166/76 H Pulse Oximetry 95 94 Oxygen Delivery Method 01/24/23 11:37 01/24/23 11:37 01/24/23 11:45 Temperature Pulse Rate 93 H 95 H Respiratory Rate 32 H 28 H Blood Pressure 176/74 H Pulse Oximetry 95 93 Oxygen Delivery Method 01/24/23 11:45 01/24/23 12:00 01/24/23 12:00 Temperature Pulse Rate 96 H Respiratory Rate 27 H Blood Pressure 167/75 H 159/68 H Pulse Oximetry 92 Oxygen Delivery Method 01/24/23 12:15 01/24/23 12:15 01/24/23 12:30 Temperature Pulse Rate 91 H Respiratory Rate 27 H Blood Pressure 145/65 H 159/68 H Pulse Oximetry 91 Oxygen Delivery Method 01/24/23 12:30 01/24/23 12:45 01/24/23 12:45 Temperature Pulse Rate 94 H 94 H Respiratory Rate 27 H 29 H Blood Pressure 163/71 H Pulse Oximetry 92 93 Oxygen Delivery Method 01/24/23 13:00 01/24/23 13:30 01/24/23 14:02 Temperature Pulse Rate 93 H 91 H 91 H Respiratory Rate 28 H 29 H Blood Pressure Pulse Oximetry 93 94 Oxygen Delivery Method 01/24/23 14:05 01/24/23 14:05 01/24/23 14:20 Temperature Pulse Rate 95 H 96 H Respiratory Rate 34 H Blood Pressure 163/70 H Pulse Oximetry 94 94 Oxygen Delivery Method 01/24/23 14:20 01/24/23 14:35 01/24/23 14:39 Temperature Pulse Rate 102 H 96 H Respiratory Rate 37 H 34 H Blood Pressure 176/77 H Pulse Oximetry 92 93 Oxygen Delivery Method 01/24/23 14:39 01/24/23 15:00 01/24/23 15:01 Temperature Pulse Rate 95 H 96 H Respiratory Rate 33 H 32 H Blood Pressure 174/79 H Pulse Oximetry 93 93 Oxygen Delivery Method 01/24/23 15:01 01/24/23 15:17 01/24/23 15:17 Temperature Pulse Rate 98 H Respiratory Rate 33 H Blood Pressure 202/81 H 211/82 H Pulse Oximetry 93 Oxygen Delivery Method 01/24/23 15:30 01/24/23 16:00 01/24/23 16:01 Temperature Pulse Rate 94 H 99 H 97 H Respiratory Rate 36 H 32 H 35 H Blood Pressure Pulse Oximetry 94 92 92 Oxygen Delivery Method Room Air 01/24/23 16:01 01/24/23 16:30 Temperature Pulse Rate 93 H Respiratory Rate 30 H Blood Pressure 174/83 H Pulse Oximetry 92 Oxygen Delivery Method Oxygen Delivery Method Room Air Narrative Exam Narrative: GEN: Very pleasant elderly female, Alert and oriented x 3, NAD HEENT:NC, Face symmetric CHEST: Respiratory excursions symmetric, CTAB CV: RRR, no M/R/G ABD: Soft, mild distension and bilateral lower extremity fullness, well healed central surgical incision without erythema or induration, appropriately tender over incision but no other location. EXTR: warm and well perfused, trace bilateral edema with mild tenderness to L calf on palpation but not the R. SKIN: warm and dry, no rash NEURO: Alert and oriented x 3, nonfocal Objective Labs 01/24/23 11:08 01/24/23 11:08 Labs: Laboratory Results - last 24 hr 01/24/23 01/24/23 01/24/23 11:08 11:08 11:08 WBC 12.2 H RBC 4.34 Hgb 12.8 Hct 38.6 MCV 88.9 MCH 29.5 MCHC 33.1 RDW 14.5 Plt Count 198 Neut % (Auto) 84.9 H Lymph % (Auto) 4.7 L Dixie % (Auto) 9.8 Eos % (Auto) 0.2 L Baso % (Auto) 0.4 Neut # (Auto) 72202 H Lymph # (Auto) 600 L Dixie # (Auto) 1200 H Eos # (Auto) 0 Baso # (Auto) 0 PT 17.0 H INR 1.5 H APTT 31 Sodium 136 L Potassium 3.8 Chloride 97 L Carbon Dioxide 32 BUN 13 Creatinine 0.49 L Estimated GFR > 60 BUN/Creatinine Ratio 26.5 H Glucose 156 H Calcium 8.5 Magnesium 2.0 Total Bilirubin 1.5 H AST 21 ALT 16 Alkaline Phosphatase 82 Total Creatine Kinase CK-MB (CK-2) CK-MB (CK-2) Rel Index Troponin I NT-Pro-B Natriuret Pep 908 H Total Protein 7.4 Albumin 3.8 Globulin 3.6 Albumin/Globulin Ratio 1.1 Lipase 64 Urine RBC Urine WBC Ur Squamous Epith Cells Ur Transition Epith Cell Urine Bacteria Urine Mucus Ur Culture Indicated? SARS-CoV-2 (PCR) 01/24/23 01/24/23 01/24/23 11:08 14:56 16:27 WBC RBC Hgb Hct MCV MCH MCHC RDW Plt Count Neut % (Auto) Lymph % (Auto) Dixie % (Auto) Eos % (Auto) Baso % (Auto) Neut # (Auto) Lymph # (Auto) Dixie # (Auto) Eos # (Auto) Baso # (Auto) PT INR APTT Sodium Potassium Chloride Carbon Dioxide BUN Creatinine Estimated GFR BUN/Creatinine Ratio Glucose Calcium Magnesium Total Bilirubin AST ALT Alkaline Phosphatase Total Creatine Kinase 40 CK-MB (CK-2) TNP CK-MB (CK-2) Rel Index TNP Troponin I < 0.012 NT-Pro-B Natriuret Pep Total Protein Albumin Globulin Albumin/Globulin Ratio Lipase Urine RBC 0-1/hpf Urine WBC 10-30/hpf H Ur Squamous Epith Cells 5-10 /hpf H Ur Transition Epith Cell 1-5/hpf Urine Bacteria Moderate (10-30) H Urine Mucus 1+ H Ur Culture Indicated? Specimen cultured SARS-CoV-2 (PCR) Negative Assessment & Plan Assessment & Plan narrative: 1. Acute cystitis - symptoms of weakness most likely due to acute cystitis, though possible mild heart failure as discussed below. - continue rocephin 1g q24 hours, pending cultures. - likely developed in setting of constipation noted below. - unclear at this time if monreal placed during her operative procedure based on review of surgeon notes. 2. Constipation due to opiate therapy - suspect related to opiates after surgery along with hernia repair - if nausea or vomiting CT abdomen to eval for ileus. Abd Xray was unremarkable. - start laxitive therapies 3. Possible acute on chronic diastolic heart failure - will hold on additional IV fluids after the ER. May be due to fluid shifts after surgery, but weakness may be due to possible heart failure. ProBNP mildly elevated at 900 and CXR with possible mild congestion. Lung exam is unremarkable but patient is mildly tachypnic though this may be worsening with fluids given initially. - will stop additional fluids now, monitor response to antibiotics. Will attempt slight diuresis with IV furosemide given slight tachypnea to assess response. - will check echocardiogram - PE low likelihood with home coumadin continued and negative US of her lower extremities. 4 S/p recent repair of Incarcerated hernia - continue pain control as needed. 5. Chronic atrial fibrillation, tachy-bk syndrome, status post permanent pacemaker placement, on warfarin anticoagulation Discussed with Dr. Gaytan after surgery today. She is okay with resuming warfarin this evening. 6. Hypertension Patient had been on both losartan and benazepril prior to admission. Losartan was held for surgery. Benazepril was discontinued. She remains on amlodipine and Coreg. Will plan to resume losartan in the next 24 hours. 7 Hyperlipidemia Continue statin therapy. 8. GERD Continue PPI. Code status Full, surrogate is patient's spouse. Prophylaxis Continue home warfarin. Disposition Admitted observation, probable discharge home but will further evaluate with PT / OT, may need SNF if remains weak Additional history obtained from ER provider, spoust at bedside. Discussed plan of care with patient, spouse, and bedside RN. I have utilized all available immediate resources to obtain, update, or review the patient's current medications. Quality VTE Deep Vein Thrombosis/Pulmonary Embolism Present on Admission: No
--- NOTE | 2023-01-24 17:32 | DI.ECHO.S_ITS ---
[facility] +---------+ : : [address] : [place] [address] : : : : [id number] : : : : Phone: [phone]+ Echocardiogram Report + + :Name: CHANNING BECERRA Study Date: 01/26/2023 Height: 63 in : :[facility] ReadingLocation: Weight: 174 lb : : Gender: Female BSA: 1.8 m2 : :: 1940 Age: 82 yrs BP: 143/76 mmHg: :Reason For Study: LOWER EXTREMITY EDEMA : :Ordering Physician: POLLO, : :TAN DE SANTIAGO Performed By: ALISON KISER : :Referring: TAN ABAD : + + Interpretation Summary The left ventricle is normal in size. Left ventricular ejection fraction is estimated to be 60 +/- 5%. The right ventricle is mildly dilated. Right ventricular systolic function is mildly reduced. There is a pacemaker lead in the right ventricle. Both atria are severely dilated. Calcified mitral apparatus. There is mild mitral stenosis. There is moderate mitral regurgitation. Aortic valve was not well visualized. The peak aortic velocity is 2.2 m/sec. The aortic valve mean gradient is 10 mmHg. There is mild aortic stenosis. There is moderate tricuspid regurgitation. The right ventricular systolic pressure is estimated to be at least 49 mmHg based on an estimated right atrial pressure of 8 mm Hg. Procedure: A two-dimensional transthoracic echocardiogram with color flow and Doppler was performed. The study quality was technically adequate. There is no prior echocardiogram noted for this patient. The patient was in atrial fibrillation with heart rates between 40-93 bpm during the exam. Left Ventricle: The left ventricle is normal in size. Left ventricular wall thickness is mildly increased. There is no thrombus. Left ventricular ejection fraction is estimated to be 60 +/- 5%. Septal motion is consistent with conduction abnormality. E/E' med: 22.6. Diastolic function could not be accurately assessed due to atrial fibrillation. Right Ventricle: The right ventricle is mildly dilated. There is a pacemaker lead in the right ventricle. Right ventricular systolic function is mildly reduced. Atria: Both atria are severely dilated. There is no Doppler evidence for an interatrial shunt. Mitral Valve: There is mild to moderate mitral annular calcification. The mitral valve leaflets are moderately calcified. The mitral valve chordae are thickened and/or calcified. There is mild mitral stenosis. There is moderate mitral regurgitation. Aortic Valve: The aortic valve is not well visualized. The aortic valve is mildly calcified. There is mild aortic stenosis. The peak aortic velocity is 2.2 m/sec. The aortic valve mean gradient is 10 mmHg. There is no hemodynamically significant valvular aortic stenosis. No aortic regurgitation is present. Tricuspid Valve: The tricuspid annulus is dilated. There is moderate tricuspid regurgitation. The right ventricular systolic pressure is estimated to be at least 49 mmHg based on an estimated right atrial pressure of 8 mm Hg. Pulmonic Valve: The pulmonic valve is not well visualized. Great Vessels: The aortic root is not well visualized but is probably normal size. The ascending aorta could not be visualized. The IVC is of normal diameter and collapses less than 50% with a sniff. This suggests a right atrial pressure of 8 mm Hg. Pericardium/ Pleura There is no pericardial effusion. There is an anterior echo-free space consistent with a fat pad. There is no pleural effusion. MMode/2D Measurements & Calculations LVIDd: 5.3 cm LA A2 area: 39.4 cm2 LVIDs: 3.1 cm LA A4 area: 37.8 cm2 FS: 41.1 % LA length (vol): 7.7 cm IVSd: 0.95 cm LA vol: 163.8 ml LVPWd: 1.1 cm LA vol index: 89.9 ml/m2 LV adams. diameter/BSA (cm/m^2): 2.9 LV sys. diameter/BSA (cm/m^2): 1.7 RA long axis: 6.7 cm RVD1 (basal): 4.3 cm RA area: 32.0 cm2 TAPSE: 0.96 cm RA vol: 129.2 ml RA : 70.9 ml/m2 IVC diam: 2.0 cm Doppler Measurements & Calculations Ao V2 max: 216.6 cm/sec LVOT Max Syed: 146.2 cm/sec Ao V2 mean: 151.4 cm/sec LV V1 max P.5 mmHg Ao max P.8 mmHg LV V1 VTI: 27.4 cm Ao mean P.1 mmHg sev ratio: 0.68 Ao V2 VTI: 40.2 cm MV E max syed: 173.6 cm/sec TR max syed: 320.1 cm/sec MV A max syed: 61.2 cm/sec TR max P.0 mmHg MV E/A: 2.8 PA pr(Accel): 49.9 mmHg Med Peak E' Syed: 7.7 cm/sec E/E' med: 22.6 Lat Peak E' Syed: 8.3 cm/sec E/E' lat: 20.8 E/e' average: 21.7 MV dec time: 0.19 sec MV V2 mean: 133.3 cm/sec MV mean P.7 mmHg MV V2 VTI: 38.3 cm Reading Physician:12:07 PM
[2023-01-24] MEDS: polyethylene glycoL 3350 17 GM POWD.PACK PO (18:06)
[2023-01-24] MEDS: FUROSEMIDE 40 MG/4 ML VIAL IV (18:06)
--- NOTE | 2023-01-24 18:39 | PC.NURSE ---
Assess- Patient is alert and oriented x4. She was admitted for weakness and uti. Given some fluids down in ER and her iv antibiotic has infused. Patient sob when arrived up to the floor, given iv lasix and helpful. Patient has a pure wick placed for urination. She is on the bed ahumada now and trying to have a bm. Denies pain. L.ankle soar. O pain medications needed at this time.
[2023-01-24] MEDS: DOCUSATE 100 MG CAPSULE PO (20:52)
[2023-01-24] MEDS: SENNOSIDES 8.6 MG TABLET 17.2 MG PO (20:52)
[2023-01-24] MEDS: OXYCODONE IR 5 MG TABLET PO (21:38)
[2023-01-25] VITALS (10 sets, daily range): BP systolic 129–150; BP diastolic 57–74; PULSE 67–95; RESP 17–20; TEMP 36.1–37.6; O2SAT 92–95
[2023-01-25] MEDS: ACETAMINOPHEN 325 MG TABLET 650 MG PO (02:22)
[2023-01-25 04:35] LABS: Add Manual Diff / Slide Review NO; Basophils Absolute Auto 0 /uL (0-100); Basophils Percent Auto 0.2 % (0-2); Eosinophils Absolute Auto 0 /uL (0-450); Eosinophils Percent Auto 0.1 % (2-4); Hematocrit 34.8 % (36-46); Hemoglobin 11.6 g/dL (12.0-16.0); Lymphocytes Absolute Auto 600 /uL (1100-4500); Lymphocytes Percent Auto 4.8 % (25-40); Mean Corpuscular HGB Conc 33.2 % (30-36); Mean Corpuscular Hemoglobin 29.3 PG (26-34); Mean Corpuscular Volume 88.3 fL (80-100); Monocytes Absolute Auto 1400 /uL (0-900); Neutrophils Absolute Auto 10300 /uL (1500-7000); Neutrophils Percent Auto 83.9 % (50-75); Platelet Count 189 X10^3/uL (150-400); Red Blood Cell Count 3.94 X10^6/uL (4.0-5.2); Red Cell Distribution Width 14.5 % (11.6-14.8); White Blood Cell Count 12.3 X10^3/uL (4.5-11.0)
[2023-01-25 04:41] LABS: HEMOLYSIS < 15 (0-50); Potassium 3.2 mmol/L (3.4-5.1)
[2023-01-25 04:42] LABS: BUN Creatinine Ratio 27.3 (6-22); Blood Urea Nitrogen 15 mg/dL (7-17); Calcium 7.8 mg/dL (8.4-10.2); Carbon Dioxide 31 mmol/L (22-32); Chloride 98 mmol/L (98-107); Estimated Glomerular Filt Rate > 60 mL/min (>60); Glucose 143 mg/dL (80-110); Magnesium 1.8 mg/dL (1.6-2.3); Sodium 136 mmol/L (137-145)
[2023-01-25] MEDS: POTASSIUM CHLORIDE 20 MEQ TAB 40 MEQ PO ×2 (06:40→11:51)
[2023-01-25] MEDS: carvediloL 12.5 MG TABLET PO ×2 (09:29→20:53)
[2023-01-25] MEDS: AMLODIPINE 5 MG TABLET PO (09:29)
[2023-01-25] MEDS: DOCUSATE 100 MG CAPSULE PO ×2 (09:30→20:52)
[2023-01-25] MEDS: polyethylene glycoL 3350 17 GM POWD.PACK PO (09:30)
[2023-01-25] MEDS: LOSARTAN 50 MG TABLET PO ×2 (09:30→20:53)
[2023-01-25] MEDS: CHOLECALCIFEROL (VITAMIN D3) 1,000 UNIT TABLET 1000 UNIT PO (09:30)
[2023-01-25] MEDS: ATORVASTATIN 20 MG TABLET PO (09:30)
--- NOTE | 2023-01-25 10:58 | PM.PN.1 ---
Subjective Subjective Interval history: 82 F admitted with weakness, secondary to UTI and possible diastolic heart failure. She was febrile overnight to 100.6. She feels a bit better this morning, but has not gotten out of bed since admission. She was able to have a bowel movement overnight with laxitive therapies. She denies abdominal pain, chest pain, shortness of breath, nausea, or vomiting. Exam Vital Signs (past 8 hours): - 01/25/23 05:00 01/25/23 05:00 01/25/23 09:00 Temperature 97.5 F L Pulse Rate 78 Respiratory Rate 18 Blood Pressure 133/60 Pulse Oximetry 92 92 95 Oxygen Delivery Method Room Air Room Air Oxygen Flow Rate 0 0 01/25/23 09:00 01/25/23 09:29 01/25/23 09:30 Temperature 98.1 F Pulse Rate 78 78 78 Respiratory Rate 18 Blood Pressure 136/74 133/60 133/60 Pulse Oximetry 92 Oxygen Delivery Method Oxygen Flow Rate 0 Oxygen Delivery Method Room Air Oxygen Flow Rate 0 Narrative Exam Narrative: GEN: Very pleasant elderly female, Alert and oriented x 3, NAD HEENT:NC, Face symmetric CHEST: Respiratory excursions symmetric, CTAB CV: RRR, no M/R/G ABD: Soft, appropriately tender over incision but no other location, non-distended EXTR: warm and well perfused, trace bilateral LE edema, no joint effusions SKIN: warm and dry, no rash NEURO: Alert and oriented x 3, nonfocal Objective Labs 01/25/23 04:10 01/25/23 04:10 Labs: Laboratory Results - last 24 hr 01/24/23 01/24/23 01/24/23 11:08 11:08 11:08 WBC 12.2 H RBC 4.34 Hgb 12.8 Hct 38.6 MCV 88.9 MCH 29.5 MCHC 33.1 RDW 14.5 Plt Count 198 Neut % (Auto) 84.9 H Lymph % (Auto) 4.7 L [place] % (Auto) 9.8 Eos % (Auto) 0.2 L Baso % (Auto) 0.4 Neut # (Auto) 53972 H Lymph # (Auto) 600 L [place] # (Auto) 1200 H Eos # (Auto) 0 Baso # (Auto) 0 PT 17.0 H INR 1.5 H APTT 31 Sodium 136 L Potassium 3.8 Chloride 97 L Carbon Dioxide 32 BUN 13 Creatinine 0.49 L Estimated GFR > 60 BUN/Creatinine Ratio 26.5 H Glucose 156 H Calcium 8.5 Magnesium 2.0 Total Bilirubin 1.5 H AST 21 ALT 16 Alkaline Phosphatase 82 Total Creatine Kinase CK-MB (CK-2) CK-MB (CK-2) Rel Index Troponin I NT-Pro-B Natriuret Pep 908 H Total Protein 7.4 Albumin 3.8 Globulin 3.6 Albumin/Globulin Ratio 1.1 Lipase 64 Urine RBC Urine WBC Ur Squamous Epith Cells Ur Transition Epith Cell Urine Bacteria Urine Mucus Ur Culture Indicated? SARS-CoV-2 (PCR) 01/24/23 01/24/23 01/24/23 11:08 14:56 16:27 WBC RBC Hgb Hct MCV MCH MCHC RDW Plt Count Neut % (Auto) Lymph % (Auto) [place] % (Auto) Eos % (Auto) Baso % (Auto) Neut # (Auto) Lymph # (Auto) [place] # (Auto) Eos # (Auto) Baso # (Auto) PT INR APTT Sodium Potassium Chloride Carbon Dioxide BUN Creatinine Estimated GFR BUN/Creatinine Ratio Glucose Calcium Magnesium Total Bilirubin AST ALT Alkaline Phosphatase Total Creatine Kinase 40 CK-MB (CK-2) TNP CK-MB (CK-2) Rel Index TNP Troponin I < 0.012 NT-Pro-B Natriuret Pep Total Protein Albumin Globulin Albumin/Globulin Ratio Lipase Urine RBC 0-1/hpf Urine WBC 10-30/hpf H Ur Squamous Epith Cells 5-10 /hpf H Ur Transition Epith Cell 1-5/hpf Urine Bacteria Moderate (10-30) H Urine Mucus 1+ H Ur Culture Indicated? Specimen cultured SARS-CoV-2 (PCR) Negative 01/25/23 01/25/23 04:10 04:10 WBC 12.3 H RBC 3.94 L Hgb 11.6 L Hct 34.8 L MCV 88.3 MCH 29.3 MCHC 33.2 RDW 14.5 Plt Count 189 Neut % (Auto) 83.9 H Lymph % (Auto) 4.8 L [place] % (Auto) 11.0 Eos % (Auto) 0.1 L Baso % (Auto) 0.2 Neut # (Auto) 12562 H Lymph # (Auto) 600 L [place] # (Auto) 1400 H Eos # (Auto) 0 Baso # (Auto) 0 PT INR APTT Sodium 136 L Potassium 3.2 L Chloride 98 Carbon Dioxide 31 BUN 15 Creatinine 0.55 Estimated GFR > 60 BUN/Creatinine Ratio 27.3 H Glucose 143 H Calcium 7.8 L Magnesium 1.8 Total Bilirubin AST ALT Alkaline Phosphatase Total Creatine Kinase CK-MB (CK-2) CK-MB (CK-2) Rel Index Troponin I NT-Pro-B Natriuret Pep Total Protein Albumin Globulin Albumin/Globulin Ratio Lipase Urine RBC Urine WBC Ur Squamous Epith Cells Ur Transition Epith Cell Urine Bacteria Urine Mucus Ur Culture Indicated? SARS-CoV-2 (PCR) 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 Hyperlipidemia Hypertension Incisional hernia Pacemaker Prediabetes Primary osteoarthritis Subclinical hyperthyroidism Surgical History H/O heart surgery History of tonsillectomy and adenoidectomy Hx of cholecystectomy Family History Mother No pertinent past medical history Father No pertinent past medical history Social History household members: spouse Smoking Status: Never smoker alcohol intake: current Assessment & Plan Assessment & Plan narrative: 1. Acute cystitis - symptoms of weakness most likely due to acute cystitis, though possible mild heart failure as discussed below. - continue rocephin 1g q24 hours, pending cultures. - likely developed in setting of constipation noted below. - does not appear to have had monreal placed during her operative procedure based on review of surgeon and surgery nursing notes. 2. Constipation due to opiate therapy, improved - suspect related to opiates after surgery along with hernia repair, now improved with laxitive therapies. 3. Possible acute on chronic diastolic heart failure - will hold on additional IV fluids after the ER. May be due to fluid shifts after surgery, but weakness may be due to possible heart failure. ProBNP mildly elevated at 900 and CXR with possible mild congestion. Lung exam is unremarkable but patient is mildly tachypnic though this may be worsening with fluids given initially. - will check echocardiogram - PE low likelihood with home coumadin continued and negative US of her lower extremities. - mildly improved with 40 mg of lasix yesterday, will give another dose today. 4 S/p recent repair of Incarcerated hernia - continue pain control as needed. 5. Chronic atrial fibrillation, tachy-bk syndrome, status post permanent pacemaker placement, on warfarin anticoagulation Continue warfarin. 6. Hypertension resume home losartan 7 Hyperlipidemia Continue statin therapy. 8. GERD Continue PPI. Code status Full, surrogate is patient's spouse. Prophylaxis Continue home warfarin. Disposition Admitted observation, home vs SNF likely tomorrow after TTE, diuresis today, pending PT/OT recommendations. Quality VTE Deep Vein Thrombosis/Pulmonary Embolism Present on Admission: No
--- NOTE | 2023-01-25 11:10 | PT.IPTN ---
Physical Therapy Treatment Note M2 PT-IP Current Condition Start: 01/24/23 13:53 Freq: Status: Active Protocol: Document 01/24/23 14:47 AW (Rec: 01/24/23 15:37 AW [id number]) Physical Therapy Current Condition Current Condition Evaluation Date 01/24/23 Treatment Diagnosis generalized weakness; impaired mobility and gait Onset Date 01/24/23 M3 PT-IP Subjective Start: 01/24/23 13:53 Freq: Status: Active Protocol: Document 01/25/23 12:06 TS (Rec: 01/25/23 12:23 TS [id number]) Subjective Physical Therapy Visit Type Type Treatment Note Visit Start Time 11:10 Visit Stop Time 11:53 Total Visit Minutes 43 Physical Therapy Visit Comments Patient Comments Pt reports soreness in her R hand this morning, needs to have BM, would like ot get to commode. Patient Goals Improve strength for return to independent mobility Therapy Pain Assessment Pain When Pain Assessed During Mobility Pain Present Pain Present Pain Reported M4 PT-IP Mobility and Gait Start: 01/24/23 13:53 Freq: Status: Active Protocol: Document 01/25/23 12:06 TS (Rec: 01/25/23 12:23 TS [id number]) PT-Bed Mobility Assessment Rolling Type of Rolling Log Rolling Level of Assist Moderate Assistance Supine to Sit Supine to Sit Moderate Assistance,1 Person Assistance Scooting Scooting to Edge of Bed Contact Guard Assistance PT-Transfer Assessment Sit to and From Stand Sit to and from Stand Moderate Assistance,Maximum Assistance Equipment Transfer Assistive Device Gait Belt,Front Wheeled Walker Orthotic/Prosthetic Devices or Brace: No Transfers Transfer Destination Chair,Bedside Commode Transfer Technique Stand Step Pivot Transfer Ability Level of Assist Moderate Assistance,Maximum Assistance Comments Mobility Comments Pt found resting in bed with spouse at side. Log roll ModA, required cues for sequencing and handrail assist. Supine to sit ModA, cues for BUE support on bed for uprighting trunk and LEs off EOB. Pt scooted CGA to EOB with BUE support and some difficulty. Sit to stand x1 with FWW ModA, provided cues for handplacement on FWW and weight forward, upright posture. Stand step pivot transfer to commode ModA, cues for upright posture, pt retroleans with toes off ground. Pt sat on commode for BM, required MaxA x2 for pericare. Stand pivot transfer to chair MaxA x2 with FWW, continues to retrolean. Pt was left in bedis side chair with call light nearby, Rn notified. Gait Assessment Comments Gait Comments See mobility comments. Stair Climbing Assessment Comments Stair Climbing Comments Unable at this time. PT-Balance Assessment Sitting Balance and Reactions Static Sitting Balance Ability Good Dynamic Sitting Balance Ability Good Standing Balance and Reactions Static Standing Balance Ability Fair Dynamic Standing Balance Ability Poor Device Used FWW M5 PT-IP Objective Assessments Start: 01/24/23 13:53 Freq: Status: Active Protocol: Document 01/24/23 14:47 AW (Rec: 01/24/23 15:37 AW [id number]) Orientation Orientation/Cognition Level of Alertness Alert Orientation Name,Day of Week,Place, Situation Language Function Ability No Deficits Noted Safety Awareness Understands Safety Issues Memory Description No Deficits Noted Gross Range of Motion Upper Extremity ROM Assessment Within Functional Limits Lower Extremity ROM Assessment Within Functional Limits Strength Lower Extremity Strength Assessment Bilaterally Impaired Hip R flexion 4/5; L flexion 3-/5 Knee R 4/5; L 3+/5 Ankle R 4+/5; L 4-/5 Coordination Assessment Gross Coordination Gross Coordination WNL Assessment Finger to Nose Test Normal Performance Foot Tapping Test Normal Performance Heel on Zepeda Test Normal Performance Sensation Assessment Sensation Gross Sensation WNL M6 PT-IP Treatment Start: 01/24/23 13:53 Freq: Status: Active Protocol: Document 01/25/23 12:06 TS (Rec: 01/25/23 12:23 TS [id number]) Physical Therapy Treatment Education Education Provided Safety Other Treatments Other Treatment Performed Edcuated pt on abdominal precautions, recalled 0/3. M7 PT-IP Assessment and Plan Start: 01/24/23 13:53 Freq: Status: Active Protocol: Document 01/25/23 12:06 TS (Rec: 01/25/23 12:23 TS [id number]) PT Summary Assessment and Plan Potential Rehabilitation Potential Good Status of Condition at Evaluation Evolving Summary Impairments Pain,Strength,Balance,Bed Mobility,Transfers,Gait Assessment Summary Pt continues to require ModA for log roll and into upright position. She required ModA x1 for sit to stand transfer to commode and MaxA x2 from commode to bedside chair. She recalled 0/3 abdominal precautions and requires eduction on sequencing of logroll. Pt could not progress gait this session due to pain /weakness in RLE/RUE and low activity tolerance. PT continues to recommend SNF to increase bed mobility, trasnfers, gat and activity tolerance. Goals Bed Mobility Goal Standby Assistance Transfer Goal Standby Assistance,Front Wheeled Walker Gait Goal Standby Assistance,Front Wheel Walker Gait Distance 100 Other Goals - Up/down 2 steps with single railing - Pt will improve transfers and gait to IND with LRAD Days to Meet Goals 7 Frequency of Treatment Frequency Of Treatment Once a Day Treatment Plan Physical Therapy Treatment Plan Bed Mobility Training,Transfer Training,Gait Training, Therapeutic Exercise,Balance Retraining,Post Op Education, Discharge Planning,Hot or Cold Pack,Neuromuscular Re-ed Other Recommendations and Next Treatment reinforce education on Focus abdominal precautions; transfer trainin; gait with FWW as tolerated Precautions Abdominal Surgery Precautions Log Roll,Lifting Restrictions, Gait Belt above Incisional Area Recommendations To Nursing Amount of Assist Needed 2 Person Assist Discharge Recommendations PT Discharge Recommendations SNF Rehab Equipment Needed for Home Before FWW if going home Discharge Transportation Needs at Discharge Wheelchair/Cabulance
[2023-01-25] MEDS: FUROSEMIDE 40 MG/4 ML VIAL IV ×2 (11:51→23:20)
--- NOTE | 2023-01-25 11:54 | CM.DPC ---
DCP SNF cont: Per MD, pt with UTI and getting IV-Abx and was constipated but had small bowel movement and needs Echo and diuresis today and then likely d/c to SNF tomorrow 01/26/23. Per PT/OT, recommending SNF rehab still. SW met bedside with pt and [employer] was just finished working with pt and updated her on acceptance at [facility] and [facility] but pending bed availability at d/c would determine which SNF pt discharges too. Pt acknowledged understanding and states spouse will be back soon and she will update him and she is still agreeable with SNF. PASRR completed. Plan: SW to follow for possible d/c to SNF tomorrow and likely to [facility] pending bed availability. EVERETT Pittman
--- NOTE | 2023-01-25 14:45 | OT.IP.EVAL ---
Past Medical History (Last Reviewed 01/24/23 @ 17:29 by Lorne Hdz DO) Abdominal wall hernia Abnormal colonoscopy Adenomatous colon polyp Allergic rhinitis Atrial fibrillation Coronary atherosclerosis GERD (gastroesophageal reflux disease) Heart murmur Hiatal hernia Hypercoagulability due to atrial fibrillation Hyperlipidemia Hypertension Incisional hernia Pacemaker Prediabetes Primary osteoarthritis Subclinical hyperthyroidism Surgical History (Last Reviewed 01/24/23 @ 17:29 by Lorne Hdz DO) H/O heart surgery History of tonsillectomy and adenoidectomy Hx of cholecystectomy Occupational Therapy Inpatient Evaluation/Re-Eval M1 PT/OT-IP Prior Functional Status Start: 01/24/23 13:53 Freq: Status: Active Protocol: Document 01/25/23 15:42 CGR (Rec: 01/25/23 16:07 CGR [id number]) Medical Review Prior Functional Status Medical History Reviewed Yes Communication WNL. Pt is an effective verbal communicator. Mobility and Gait Independent without assistive device inside the house. Pt uses a SPC outside the house primarily due poor vision secondary to macular degeneration. Activities of Daily Living and IADL's Independent with ADL's. Pt and her spouse both contribute to household management. Pt does not drive due to poor vision. Prior Functional Level (Other details) PMH includes tachy bk syndrome s/p PPM, atrial fibrillation (on warfarin), hypertension, hyperlipidemia, and remote open cholecystectomy. She underwent repair of incarcerated hernia on 01/21/23 and discharged home on 01/22/23. Social History Household Members spouse Living Arrangements House Number of Floors (Floors) One Floor Number of Stairs To Enter/Railing? 2 DALILA with something to hold on to through the garage. At front entrance, there are 4 DALILA with a railing. Home Environment Standard Height Toilet,Walk in Shower,Built-In Shower Seat Home Equipment Straight Cane,Grab Bars Near Toilet Employment Status Retired Additional Social History Comment Pt lives in [place] with her spouse, [place]. M2 OT-IP Current Condition Start: 01/25/23 15:36 Freq: Status: Active Protocol: Document 01/25/23 15:42 CGR (Rec: 01/25/23 16:07 CGR [id number]) Occupational Therapy Current Condition Current Condition Evaluation Date 01/25/23 Treatment Diagnosis acute cystitis/uti Diagnosis Onset Date 01/24/23 M3 OT- IP Subjective and Pain Start: 01/25/23 15:36 Freq: Status: Active Protocol: Document 01/25/23 15:42 CGR (Rec: 01/25/23 16:07 CGR [id number]) OT- Subjective Occupational Therapy Visit Type Type Initial Evaluation Visit Start Time 14:15 Visit Stop Time 14:45 Total Visit Minutes 30 Notes Pt agreeable to therapy, requesting to get to BSC OT Pain Assessment Pain When Pain Assessed During Mobility Pain Present Pain Present Pain Reported Location incisional Intensity 6 Scale Used Numeric (0 - 10) Management Techniques Distraction,Modification of Treatment,Re-positioning M4 OT- IP ADL's Start: 01/25/23 15:36 Freq: Status: Active Protocol: Document 01/25/23 15:42 CGR (Rec: 01/25/23 16:07 CGR [id number]) OT [id number] Comments OT Self-Feeding Comments not meal time OT ADL-Grooming General Evaluation Grooming Ability Standby Assistance Areas Needing Assistance Retrieving/Set-up of Grooming Items,Combing/Brushing Hair, Face Washing Comments OT Grooming Comments seated in chair at sink OT ADL-Oral Care General Eval Oral Care Ability Standby Assistance Areas of Assistance Brushing Teeth,Retrieving/Set- Up of Items Comments Oral Care Comments seated in chair at sink OT ADL-Dressing Comments OT Dressing Comments not performed OT ADL-Toileting General Evaluation Toileting Ability Total Assistance Areas Needing Assistance Manage Clothing,Perform Perineal Hygiene Comments OT Toileting Comments Pt needed total assist for pericare and management of her clothing OT ADL-Bathing Comments OT Bathing Comments not performed M5 OT- IP IADL's Start: 01/25/23 15:36 Freq: Status: Active Protocol: Document 01/25/23 15:42 CGR (Rec: 01/25/23 16:07 CGR [id number]) OT-Instrumental Activities of Daily Living Deficits IADL Deficits Identified Deficits Home Safety Awareness Awareness of Need for Assistance at Home Decreased Awareness Ability to Problem Solve Emergency Unable to Problem Solve Situations Medication Management Medication Management Caregiver Administers Money Management Money Management Caregiver Provides Assistance Meal Preparation Meal Preparation Caregiver Provides Assist Slack Line Yarder Slack Line Yarder Caregiver Provides Assist Driving Driving Comments pt does not drive M6 OT- IP Functional Cognition Start: 01/25/23 15:36 Freq: Status: Active Protocol: Document 01/25/23 15:42 CGR (Rec: 01/25/23 16:07 CGR [id number]) Cognitive Factors Limiting Selfcare Function Cognitive Ability Level of Alertness Alert Patient Orientation Name,Age,Birthday,Month,Date, Year,Day of Week,Place, Situation Attention Span Ability Capable of Focused Attention, Capable of Sustained Attention Ability to Follow Commands Able to Follow One Step Commands OT- Vision and Hearing OT- Hearing Assessment OT- Hearing Assessment WFL OT- Vision Assessment Vision History Macular Degeneration Visual Acuity Glasses All The Time Visual Attentiveness WFL Occular Pursuits WFL Visual Convergence WFL M7 OT- IP Mobility and Balance Start: 01/25/23 15:36 Freq: Status: Active Protocol: Document 01/25/23 15:42 CGR (Rec: 01/25/23 16:07 CGR [id number]) OT-Transfer Assessment Sit to and From Stand Sit to and from Stand Moderate Assistance Transfers Transfer Ability Moderate Assistance Technique Transfer Destination Bedside Commode,Chair Transfer Technique Stand Step Pivot Devices Transfer Assistive Devices Gait Belt,Front Wheeled Walker Comments Mobility Comments stand pivot transfer from chair to bedside commode with mod a. OT- Gait Assessment Comments Gait Ability Comments not performed OT- Balance Assessment Sitting Balance and Reactions Static Sitting Balance Ability Good Dynamic Sitting Balance Ability Good M8 OT- IP Objective Assessments Start: 01/25/23 15:36 Freq: Status: Active Protocol: Document 01/25/23 15:42 CGR (Rec: 01/25/23 16:07 CGR [id number]) OT Gross Range of Motion Upper Extremity Range of Motion Assessment Right Impaired ROM Impairments R shld limitations from previous fall and fx. OT Strength Upper Extremity Strength Assessment Within Functional Limits Comments Strength Comments grossly 4/5, R shld not tested OT- Coordination Assessment Upper Extremity Finger to Nose Test Within Functional Limits Finger Tapping Test Within Functional Limits OT-Muscle Tone Assessment Muscle Tone WNL Yes OT Sensation Assessment Edema Edema Absent M9 OT- IP Assessment and Plan Start: 01/25/23 15:36 Freq: Status: Active Protocol: Document 01/25/23 15:42 CGR (Rec: 01/25/23 16:07 CGR [id number]) OT Summary Assessment and Plan Potential Rehabilitation Potential Good Analytic Complexity at Evaluation Moderate Summary OT Impairments Pain,Range of Motion,Strength, Balance,Functional Mobility, Grooming,Dressing,Toileting, Bathing,Toilet Transfers, Shower Transfers,Activity Tolerance Progress Towards Goals Slow Progress due to Medical Issues Assessment Summary Pt presents as a moderate complexity evaluation s/p admit for UTI. Pt had a recent (01/21/23) abdominal wall hernia repair done. Pt currently is requiring mod a for stand pivot transfers and is unable to perform LB dressing at this time. Pt will benefit from continued therapy services and will need SNF upon discharge. Goals Grooming Goal Independent Dressing Goal Independent Toileting Goal Independent Bathing Goal Independent Toilet Transfer Goal Independent Shower Transfer Goal Independent Days to Meet Goals 30 Frequency of Treatment Frequency Of Treatment Once a Day Treatment Plan OT Treatment Plan ADL Training,Functional Mobility,Patient/Family Education,Discharge Planning Other Treatment Recommendations and Next toileting, LB dressing, Treatment Focus endurance Discharge Recommendations OT Discharge Recommendations SNF Rehab Transportation Needs at Discharge Wheelchair/Cabulance
[2023-01-25] MEDS: WARFARIN 5 MG TABLET PO (17:10)
[2023-01-25] MEDS: cefTRIAXone 1,000 MG in SODIUM CHLORIDE 0.9% 100 ML 200 MG IV (17:11)
[2023-01-25] MEDS: SENNOSIDES 8.6 MG TABLET 17.2 MG PO (20:52)
[2023-01-25] MEDS: OXYCODONE IR 5 MG TABLET PO (20:53)
--- NOTE | 2023-01-25 23:11 | DI.RAD.S_ITS ---
PROCEDURE: XR CHEST 1V INDICATIONS: sob TECHNIQUE: One view of the chest was acquired. COMPARISON: [facility], CT, CT ABDOMEN PELVIS W CON, 01/19/2023, 7:26. [facility], CR, CHEST 1 VIEW, 11/29/2012, 20:50. [facility], , CHEST 2 VIEW, 02/22/2011, 9:51. FINDINGS: Surgical changes and devices: Left pacemaker. Lungs and pleura: Prominent lung volumes. Suspect emphysematous change. No pleural effusions or pneumothorax. Mediastinum: Mediastinal contours appear unchanged. Heart size is within normal limits. Bones and chest wall: No suspicious bony lesions. Overlying soft tissues appear unremarkable. IMPRESSION: No acute cardiopulmonary abnormality identified. Dictated by: Angus Rosa M.D. on 01/26/2023 at 0:08 Approved by: Angus Rosa M.D. on 01/26/2023 at 0:12
--- NOTE | 2023-01-25 23:14 | PC.NURSE ---
Pt c/o SOB, VSS, SpO2 92%, BP slightly elevated, no fever. Provider notified. Orders rec'd for cxr and lasix.
[2023-01-26] VITALS (12 sets, daily range): BP systolic 116–150; BP diastolic 54–85; PULSE 65–102; RESP 16–19; TEMP 36.1–36.8; O2SAT 90–94
[2023-01-26 06:00] LABS: BUN Creatinine Ratio 41.7 (6-22); Blood Urea Nitrogen 20 mg/dL (7-17); Calcium 8.2 mg/dL (8.4-10.2); Carbon Dioxide 34 mmol/L (22-32); Chloride 96 mmol/L (98-107); Estimated Glomerular Filt Rate > 60 mL/min (>60); Glucose 132 mg/dL (80-110); HEMOLYSIS 27 (0-50); Potassium 3.8 mmol/L (3.4-5.1); Sodium 137 mmol/L (137-145)
[2023-01-26 06:05] LABS: Add Manual Diff / Slide Review NO; Basophils Absolute Auto 0 /uL (0-100); Basophils Percent Auto 0.2 % (0-2); Eosinophils Absolute Auto 0 /uL (0-450); Eosinophils Percent Auto 0.2 % (2-4); Hematocrit 34.1 % (36-46); Hemoglobin 11.6 g/dL (12.0-16.0); Lymphocytes Absolute Auto 700 /uL (1100-4500); Lymphocytes Percent Auto 7.1 % (25-40); Mean Corpuscular HGB Conc 33.9 % (30-36); Mean Corpuscular Hemoglobin 29.8 PG (26-34); Monocytes Absolute Auto 1100 /uL (0-900); Monocytes Percent Auto 10.9 % (3-14); Neutrophils Absolute Auto 8500 /uL (1500-7000); Neutrophils Percent Auto 81.6 % (50-75); Platelet Count 204 X10^3/uL (150-400); Red Blood Cell Count 3.88 X10^6/uL (4.0-5.2); Red Cell Distribution Width 14.8 % (11.6-14.8); White Blood Cell Count 10.4 X10^3/uL (4.5-11.0)
--- NOTE | 2023-01-26 07:17 | PM.DS.1 ---
History of Present Illness History of Present Illness Date Patient Seen: 01/22/23 Chief complaint: bilat LE swelling Narrative: Per H&P: This is an 82 year old female with PMH of tachy-bk syndrome s/p PPM, chronic atrial fibrillation on coumadin, HTN, HLD, prior heart surgery (unsure if ASD or VSD repair) long history of abdominal hernia who presented with abdominal pain. Abdominal pain initially started about 2 weeks ago after a spicy meal, was located over her hernia site, and was associated with mild nausea. Eventually the pain abated but returned yesterday evening after another spicy meal. The pain again was located over her hernia site, was sharp and constant. This time she had nausea and multiple episodes of emesis, with the last one she thought may be a bit bloody. She also noted worsening distension of her abdomen. She also endorses mildly dark stools but not loose stools. Last bowel movement was yesterday. CT scan showed a large hernia with loops of small bowel, with associated small bowel obstruction. Patient received pain medications, was able to be reduced by the ER physician with improvement in patient's distension and symptoms. Labs showed an elevated INR, CO2 of 40, but were otherwise unremarkable. She is not hungry currently. She denies passing any gas. Given medical comorbidities patient admitted to the hospitalist service with surgical consultation, with plans for hernia repair prior to discharge, probably tomorrow. Discharge Providers Provider Date of admission: 01/24/23 16:30 Primary care physician: Марина Brody PA-C Consults: 01/24/23 12:55 Consult to Physical Therapy Evaluate & Treat Comment: too weak to walk since recent discharge Physician Instructions: Evaluate and Treat 01/24/23 13:52 Consult to Physical Therapy Evaluate & Treat Comment: Physician Instructions: Evaluate and Treat 01/24/23 14:55 Consult to MEAT CUTTING TEACHER - Packing House Supervisor Stat Comment: weakness after hospitalization, failed PT eval. SN 01/24/23 17:14 Consult to Occupational Therapy Evaluate & Treat Comment: Physician Instructions: Evaluate and treat Discharge provider: Nita Tobar MD Exam Vital Signs (past 8 hours): - 01/26/23 00:00 01/26/23 01:00 01/26/23 04:00 Temperature 97.0 F L 97.9 F Pulse Rate 102 H 73 Respiratory Rate 19 17 Blood Pressure 149/85 H 150/76 H Pulse Oximetry 92 90 L 92 Oxygen Delivery Method Room Air 01/26/23 05:00 Temperature Pulse Rate Respiratory Rate Blood Pressure Pulse Oximetry 94 Oxygen Delivery Method Room Air Oxygen Delivery Method Room Air Oxygen Flow Rate 0 Objective Labs 01/26/23 04:37 01/26/23 04:37 Labs: Laboratory Results - last 24 hr 01/26/23 01/26/23 04:37 04:37 WBC 10.4 RBC 3.88 L Hgb 11.6 L Hct 34.1 L MCV 88.0 MCH 29.8 MCHC 33.9 RDW 14.8 Plt Count 204 Neut % (Auto) 81.6 H Lymph % (Auto) 7.1 L [place] % (Auto) 10.9 Eos % (Auto) 0.2 L Baso % (Auto) 0.2 Neut # (Auto) 8500 H Lymph # (Auto) 700 L [place] # (Auto) 1100 H Eos # (Auto) 0 Baso # (Auto) 0 Sodium 137 Potassium 3.8 Chloride 96 L Carbon Dioxide 34 H BUN 20 H Creatinine 0.48 L Estimated GFR > 60 BUN/Creatinine Ratio 41.7 H Glucose 132 H Calcium 8.2 L Magnesium 2.0 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 Hyperlipidemia Hypertension Incisional hernia Pacemaker Prediabetes Primary osteoarthritis Subclinical hyperthyroidism Surgical History H/O heart surgery History of tonsillectomy and adenoidectomy Hx of cholecystectomy Family History Mother No pertinent past medical history Father No pertinent past medical history Social History household members: spouse Smoking Status: Never smoker alcohol intake: current Discharge Plan Discharge Plan Patient Disposition: Home Discharge orders & Medications Prescriptions: No Action atorvastatin 20 mg tablet 20 mg PO DAILY carvedilol 12.5 mg tablet 12.5 mg PO BID warfarin [Coumadin] 7.5 MG tablet 7.5 mg PO QDAY Qty: 0 Rx Instructions: 7.5 mg SUN, MON, WED, TUESDAY 5mg tues, thrus, sat calcium carbonate 650 MG tablet 650 mg PO PRN PRN (Reason: Acid Reflux) Qty: 0 docusate sodium 100 MG capsule 100 mg PO BIDP PRN (Reason: Constipation) Qty: 0 glucosamine sulfate-msm 1 EACH capsule 1 ea PO DAILY Qty: 0 [COQ10] 100 mg PO DAILY Qty: 0 omeprazole 20 mg PO DAILY Rx Instructions: daily 30 min prior to meals. benzonatate 100 mg Capsule 100 mg PO TID PRN (Reason: Cough) losartan 50 mg Tablet 50 mg PO BID carboxymethylcellulose sodium 1 % Drops, Liquid Gel 1 drp OPHTHALMIC (EYE) BID PRN (Reason: Dry Eyes) PreserVision AREDS 4,296 mcg-226 mg-90 mg Capsule 1 cap PO BID docusate sodium 100 mg Capsule 300 mg PO BID Rx Instructions: Take 3 caps twice a day. cholecalciferol (vitamin D3) 25 mcg (1,000 unit) Tablet 25 mcg PO DAILY amlodipine [Norvasc] 5 mg Tablet 5 mg PO DAILY Qty: 30 0RF oxycodone 5 mg Tablet 5 mg PO Q3H PRN (Reason: Pain, Moderate (4-6)) Qty: 20 0RF ondansetron 4 mg tablet,disintegrating 4 mg PO Q8H Qty: 20 0RF Follow up/Referrals: Марина Brody PA-C [Primary Care Provider] - Visit Report/Discharge Packet Stand Alone Forms: Patient Portal/API, Stroke Signs & Symptoms Discharge Data Primary Care Provider: Марина Brody Attending Provider: Lorne Hdz Admxavier Date/Time: 01/24/23 16:30 Quality VTE Deep Vein Thrombosis/Pulmonary Embolism Present on Admission: No
--- NOTE | 2023-01-26 09:18 | DI.RAD.S_ITS ---
PROCEDURE: XR WRIST RT MIN 3V INDICATIONS: r/o fracture, R wrist pain / swelling TECHNIQUE: 4 views of the wrist were acquired. COMPARISON: None. FINDINGS: Bones: No fractures or dislocations. No suspicious bony lesions. First carpometacarpal and triscaphe joint space narrowing with subchondral sclerosis. No fracture. Generalized decrease in osseous mineralization noted. Soft tissues: No suspicious soft tissue calcifications. IMPRESSION: Osteopenia and moderate osteoarthritis without fracture or foreign body Approved by: Joey Maria M.D. on 01/26/2023 at 9:38
--- NOTE | 2023-01-26 09:19 | DI.RAD.S_ITS ---
PROCEDURE: XR HAND RT MIN 3V INDICATIONS: R hand / wrist swelling and pain TECHNIQUE: 3 views of the hand(s) acquired. COMPARISON: None. FINDINGS: Bones: No fractures or dislocations. Carpal bones are normally aligned. No suspicious bony lesions. Generalized decrease in osseous mineralization noted. First carpometacarpal joint space narrowing and subchondral sclerosis noted. Soft tissues: No suspicious soft tissue calcifications. IMPRESSION: Osteopenia and 1st carpometacarpal osteoarthritis. No fracture Approved by: Joey Maria M.D. on 01/26/2023 at 9:37
[2023-01-26 09:32] LABS: Uric Acid 4.7 mg/dL (2.5-6.2)
--- NOTE | 2023-01-26 09:35 | PC.NURSE ---
process maintenance technician here taking portable xrays of right wrist.
[2023-01-26] MEDS: polyethylene glycoL 3350 17 GM POWD.PACK PO (09:43)
[2023-01-26] MEDS: LOSARTAN 50 MG TABLET PO ×2 (09:43→21:41)
[2023-01-26] MEDS: FUROSEMIDE 20 MG TABLET PO (09:43)
[2023-01-26] MEDS: CHOLECALCIFEROL (VITAMIN D3) 1,000 UNIT TABLET 1000 UNIT PO (09:43)
[2023-01-26] MEDS: AMOXICILLIN 250 MG CAPSULE 500 MG PO ×3 (09:43→21:41)
[2023-01-26] MEDS: ATORVASTATIN 20 MG TABLET PO (09:43)
[2023-01-26] MEDS: DOCUSATE 100 MG CAPSULE PO ×2 (09:43→21:41)
[2023-01-26] MEDS: AMLODIPINE 5 MG TABLET PO (09:43)
[2023-01-26] MEDS: carvediloL 12.5 MG TABLET PO ×2 (09:44→21:41)
[2023-01-26] MEDS: OXYCODONE IR 5 MG TABLET PO ×2 (09:55→21:41)
--- NOTE | 2023-01-26 12:11 | OT.IP.TRT ---
Occupational Therapy Treatment Note M2 OT-IP Current Condition Start: 01/25/23 15:36 Freq: Status: Active Protocol: Document 01/25/23 15:42 CGR (Rec: 01/25/23 16:07 CGR [id number]) Occupational Therapy Current Condition Current Condition Evaluation Date 01/25/23 Treatment Diagnosis acute cystitis/uti Diagnosis Onset Date 01/24/23 M3 OT- IP Subjective and Pain Start: 01/25/23 15:36 Freq: Status: Active Protocol: Document 01/26/23 13:35 CGR (Rec: 01/26/23 13:42 CGR [id number]) OT- Subjective Occupational Therapy Visit Type Type Progress Note Visit Start Time 11:46 Visit Stop Time 12:11 Total Visit Minutes 35 Notes Session started at 1644-2003 then put on hold for ECHO. Returned later for rest of session. Occupational Therapy Visit Comments Patient Comments I think I can walk to the seat. M4 OT- IP ADL's Start: 01/25/23 15:36 Freq: Status: Active Protocol: Document 01/26/23 13:35 CGR (Rec: 01/26/23 13:42 CGR [id number]) OT [id number] Comments OT Self-Feeding Comments not meal time OT ADL-Grooming General Evaluation Grooming Ability Standby Assistance Areas Needing Assistance Combing/Brushing Hair,Face Washing Comments OT Grooming Comments seated in chair at sink OT ADL-Oral Care General Eval Oral Care Ability Standby Assistance Areas of Assistance Brushing Teeth,Retrieving/Set- Up of Items Comments Oral Care Comments standing at sink OT ADL-Dressing General Eval Lower Body Dressing Ability Total Assistance Areas Needing Assistance Underpants/Brief Comments OT Dressing Comments Pt attempted LB dressing but was unable to perform on this date. OT ADL-Toileting General Evaluation Toileting Ability Maximum Assistance Areas Needing Assistance Manage Clothing,Perform Perineal Hygiene Comments OT Toileting Comments Pt was able to wipe but states she feels like she didn't do well enough and was assisted by this sports book writer. Pt needs assist with breif. OT ADL-Bathing Comments OT Bathing Comments not performed M5 OT- IP IADL's Start: 01/25/23 15:36 Freq: Status: Active Protocol: Document 01/25/23 15:42 CGR (Rec: 01/25/23 16:07 CGR [id number]) OT-Instrumental Activities of Daily Living Deficits IADL Deficits Identified Deficits Home Safety Awareness Awareness of Need for Assistance at Home Decreased Awareness Ability to Problem Solve Emergency Unable to Problem Solve Situations Medication Management Medication Management Caregiver Administers Money Management Money Management Caregiver Provides Assistance Meal Preparation Meal Preparation Caregiver Provides Assist Greens Planter Greens Planter Caregiver Provides Assist Driving Driving Comments pt does not drive M6 OT- IP Functional Cognition Start: 01/25/23 15:36 Freq: Status: Active Protocol: Document 01/25/23 15:42 CGR (Rec: 01/25/23 16:07 CGR [id number]) Cognitive Factors Limiting Selfcare Function Cognitive Ability Level of Alertness Alert Patient Orientation Name,Age,Birthday,Month,Date, Year,Day of Week,Place, Situation Attention Span Ability Capable of Focused Attention, Capable of Sustained Attention Ability to Follow Commands Able to Follow One Step Commands OT- Vision and Hearing OT- Hearing Assessment OT- Hearing Assessment WFL OT- Vision Assessment Vision History Macular Degeneration Visual Acuity Glasses All The Time Visual Attentiveness WFL Occular Pursuits WFL Visual Convergence WFL M7 OT- IP Mobility and Balance Start: 01/25/23 15:36 Freq: Status: Active Protocol: Document 01/26/23 13:35 CGR (Rec: 01/26/23 13:42 CGR [id number]) OT- Bed Mobility Assessment Rolling Type of Rolling Log Rolling,Roll to Right Level of Assistance Moderate Assistance,1 Person Assistance Supine to Sit Supine to Sit Assist Moderate Assistance,1 Person Assistance Scooting Scooting to Edge of Bed Contact Guard Assistance OT-Transfer Assessment Sit to and From Stand Sit to and from Stand Contact Guard Assistance Transfers Transfer Ability Minimal Assistance Technique Transfer Destination Bed,Bedside Commode,Chair Transfer Technique Stand Step Pivot Devices Transfer Assistive Devices Gait Belt,Front Wheeled Walker Comments Mobility Comments Pt stood from bed then turned 180 to BSC for urination. Pt then stood and ambulated to sink for ADLs both sitting and standing and returned to chair at bedside at end of session. OT- Balance Assessment Sitting Balance and Reactions Static Sitting Balance Ability Good Dynamic Sitting Balance Ability Fair M8 OT- IP Objective Assessments Start: 01/25/23 15:36 Freq: Status: Active Protocol: Document 01/25/23 15:42 CGR (Rec: 01/25/23 16:07 R [id number]) OT Gross Range of Motion Upper Extremity Range of Motion Assessment Right Impaired ROM Impairments R shld limitations from previous fall and fx. OT Strength Upper Extremity Strength Assessment Within Functional Limits Comments Strength Comments grossly 4/5, R shld not tested OT- Coordination Assessment Upper Extremity Finger to Nose Test Within Functional Limits Finger Tapping Test Within Functional Limits OT-Muscle Tone Assessment Muscle Tone WNL Yes OT Sensation Assessment Edema Edema Absent M9 OT- IP Assessment and Plan Start: 01/25/23 15:36 Freq: Status: Active Protocol: Document 01/26/23 13:35 CGR (Rec: 01/26/23 13:42 CGR [id number]) OT Summary Assessment and Plan Potential Rehabilitation Potential Good Analytic Complexity at Evaluation Moderate Summary OT Impairments Pain,Range of Motion,Strength, Balance,Functional Mobility, Grooming,Dressing,Toileting, Bathing,Toilet Transfers, Shower Transfers,Activity Tolerance Progress Towards Goals Slow Progress due to Medical Issues Assessment Summary Pt presents as a moderate complexity evaluation s/p admit for UTI. Pt had a recent (01/21/23) abdominal wall hernia repair done. Pt demonstrates increased strength and endurance on this date requiring only min a for mobility and ambulating up to the sink for ADLs. Pt is making progress but will still benefit from SNF upon discharge. Goals Grooming Goal Independent Dressing Goal Independent Toileting Goal Independent Bathing Goal Independent Toilet Transfer Goal Independent Shower Transfer Goal Independent Days to Meet Goals 30 Frequency of Treatment Frequency Of Treatment Once a Day Treatment Plan OT Treatment Plan ADL Training,Functional Mobility,Patient/Family Education,Discharge Planning Other Treatment Recommendations and Next toileting, LB dressing, Treatment Focus endurance Discharge Recommendations OT Discharge Recommendations SNF Rehab Transportation Needs at Discharge Wheelchair/Cabulance
[2023-01-26] MEDS: predniSONE 20 MG TABLET 40 MG PO (12:15)
--- NOTE | 2023-01-26 13:55 | PT.IPTN ---
Physical Therapy Treatment Note M2 PT-IP Current Condition Start: 01/24/23 13:53 Freq: Status: Active Protocol: Document 01/24/23 14:47 AW (Rec: 01/24/23 15:37 AW [id number]) Physical Therapy Current Condition Current Condition Evaluation Date 01/24/23 Treatment Diagnosis generalized weakness; impaired mobility and gait Onset Date 01/24/23 M3 PT-IP Subjective Start: 01/24/23 13:53 Freq: Status: Active Protocol: Document 01/26/23 14:19 TS (Rec: 01/26/23 14:51 TS [id number]) Subjective Physical Therapy Visit Type Type Treatment Note Visit Start Time 13:55 Visit Stop Time 14:19 Total Visit Minutes 24 Physical Therapy Visit Comments Patient Comments Pt reports she had an x-ray on R hand, nothing found, she may be treated for gout. She reports feeling much better this afternoon. Patient Goals Improve strength for return to independent mobility M4 PT-IP Mobility and Gait Start: 01/24/23 13:53 Freq: Status: Active Protocol: Document 01/26/23 14:19 TS (Rec: 01/26/23 14:51 TS [id number]) PT-Transfer Assessment Sit to and From Stand Sit to and from Stand Minimal Assistance,Moderate Assistance Equipment Transfer Assistive Device Gait Belt,Front Wheeled Walker Orthotic/Prosthetic Devices or Brace: No Comments Mobility Comments Pt found resting in chair, agreeable to PT session. Sit to stand x1 ModA for retrolean /tipping of FWW, provided cues for sequencing and for BUE support on arms of chair. Pt required Iraj in standing for psoterior lean intially, progressed to SBA once stable on feet. She ambulated in room ~70' with emerging step thru gait/flexed posture CGA, progressed to SBA. She performed sit to stand x1 Iraj from chair, no retrolean this attempt. She performed stairs x2 with BUE support on FWW and sink counter with Iraj and cues for sequencing. Pt was left in bed side chair with call light nearby, all needs met. Gait Assessment Gait Gait Assistance Required: Standby Assistance,Contact Guard Assist Distance (Feet) 70 Assistive Devices Assistive Device Gait Belt,Front Wheeled Walker Orthotic/Prosthetic Devices or Brace: No Gait Deviations General Gait Pattern Antalgic,Decreased Stride Length,Decreased Feet Clearance,Flexed Trunk,Wide Based Gait Factors Limiting Gait Function Factors Limiting Gait Function Decreased Activity Tolerance, Decreased Strength,Poor Balance Comments Gait Comments See mobility comments Stair Climbing Assessment Evaluation Level of Assist On Stairs Minimal Assistance Devices Stair Climbing Assistive Devices Left Railing,Right Railing Technique/Endurance Stair Climbing Direction Ascend and Descend Stair Climbing Technique Step to Step Number of Steps Climbed 2 Comments Stair Climbing Comments See mobility comments PT-Balance Assessment Sitting Balance and Reactions Static Sitting Balance Ability Good Dynamic Sitting Balance Ability Fair Standing Balance and Reactions Static Standing Balance Ability Good Dynamic Standing Balance Ability Fair Device Used FWW Comments Other Balance Tests/Deviations/Treatment Pt required Iraj initially : with standing balance for retrolean, porgressed to CGA/ SBA. M5 PT-IP Objective Assessments Start: 01/24/23 13:53 Freq: Status: Active Protocol: Document 01/24/23 14:47 AW (Rec: 01/24/23 15:37 AW [id number]) Orientation Orientation/Cognition Level of Alertness Alert Orientation Name,Day of Week,Place, Situation Language Function Ability No Deficits Noted Safety Awareness Understands Safety Issues Memory Description No Deficits Noted Gross Range of Motion Upper Extremity ROM Assessment Within Functional Limits Lower Extremity ROM Assessment Within Functional Limits Strength Lower Extremity Strength Assessment Bilaterally Impaired Hip R flexion 4/5; L flexion 3-/5 Knee R 4/5; L 3+/5 Ankle R 4+/5; L 4-/5 Coordination Assessment Gross Coordination Gross Coordination WNL Assessment Finger to Nose Test Normal Performance Foot Tapping Test Normal Performance Heel on Zepeda Test Normal Performance Sensation Assessment Sensation Gross Sensation WNL M6 PT-IP Treatment Start: 01/24/23 13:53 Freq: Status: Active Protocol: Document 01/26/23 14:19 TS (Rec: 01/26/23 14:51 TS [id number]) Physical Therapy Treatment Education Education Provided Safety Other Treatments Other Treatment Performed Edcuated pt on abdominal precautions, recalled 0/3. M7 PT-IP Assessment and Plan Start: 01/24/23 13:53 Freq: Status: Active Protocol: Document 01/26/23 14:19 TS (Rec: 01/26/23 14:51 TS [id number]) PT Summary Assessment and Plan Potential Rehabilitation Potential Good Status of Condition at Evaluation Evolving Summary Impairments Pain,Strength,Balance,Bed Mobility,Transfers,Gait Assessment Summary Pt up in chair and alert this session. She performed sit to stand x2 requiring ModA for retrolean, progressed to Iraj for 2nd attempt. She progressed her ambulation distance to 70' this session CGA/SBA in room. She performed stairs x2 with BUE support and Iraj. Her RUE pain continues to be present and is limiting her mobility. PT continues to recommend SNF to progress her bed mobility, trasnfers, gait and activity tolerance. Goals Bed Mobility Goal Standby Assistance Transfer Goal Standby Assistance,Front Wheeled Walker Gait Goal Standby Assistance,Front Wheel Walker Gait Distance 100 Other Goals - Up/down 2 steps with single railing - Pt will improve transfers and gait to IND with LRAD Days to Meet Goals 7 Frequency of Treatment Frequency Of Treatment Once a Day Treatment Plan Physical Therapy Treatment Plan Bed Mobility Training,Transfer Training,Gait Training, Therapeutic Exercise,Balance Retraining,Post Op Education, Discharge Planning,Hot or Cold Pack,Neuromuscular Re-ed Other Recommendations and Next Treatment reinforce education on Focus abdominal precautions; transfer trainin; gait with FWW as tolerated Precautions Abdominal Surgery Precautions Log Roll,Lifting Restrictions, Gait Belt above Incisional Area Recommendations To Nursing Amount of Assist Needed 1 Person Assist Discharge Recommendations PT Discharge Recommendations SNF Rehab Equipment Needed for Home Before FWW if going home Discharge Transportation Needs at Discharge Wheelchair/Cabulance
--- NOTE | 2023-01-26 14:25 | PM.PN.1 ---
Subjective Subjective Interval history: Patient complained of dyspnea overnight, improved with furosemide. Started on daily oral furosemide today. She remains a bit weak, improving with therapies today but did complain of new R wrist pain, swelling with redness. Exam Vital Signs (past 8 hours): - 01/26/23 08:00 01/26/23 09:00 01/26/23 09:44 Temperature 97.5 F L Pulse Rate 88 85 Respiratory Rate 16 Blood Pressure 143/76 H 143/76 H Pulse Oximetry 94 94 Oxygen Delivery Method Room Air Oxygen Flow Rate 0 01/26/23 12:00 01/26/23 13:00 Temperature Pulse Rate 65 Respiratory Rate 17 Blood Pressure 116/65 Pulse Oximetry 94 94 Oxygen Delivery Method Room Air Oxygen Flow Rate 0 Oxygen Delivery Method Room Air Oxygen Flow Rate 0 Narrative Exam Narrative: GEN: Very pleasant elderly female, Alert and oriented x 3, NAD HEENT:NC, Face symmetric CHEST: Respiratory excursions symmetric, CTAB CV: RRR, no M/R/G ABD: Soft, appropriately tender over incision but no other location, non-distended EXTR: warm and well perfused, trace bilateral LE edema, R wrist on ulnar side there is erythema, warmth and tenderness. No obvious joint effusions. SKIN: warm and dry, no rash NEURO: Alert and oriented x 3, nonfocal Objective Labs 01/26/23 04:37 01/26/23 04:37 Labs: Laboratory Results - last 24 hr 01/26/23 01/26/23 01/26/23 04:37 04:37 04:37 WBC 10.4 RBC 3.88 L Hgb 11.6 L Hct 34.1 L MCV 88.0 MCH 29.8 MCHC 33.9 RDW 14.8 Plt Count 204 Neut % (Auto) 81.6 H Lymph % (Auto) 7.1 L [place] % (Auto) 10.9 Eos % (Auto) 0.2 L Baso % (Auto) 0.2 Neut # (Auto) 8500 H Lymph # (Auto) 700 L [place] # (Auto) 1100 H Eos # (Auto) 0 Baso # (Auto) 0 Sodium 137 Potassium 3.8 Chloride 96 L Carbon Dioxide 34 H BUN 20 H Creatinine 0.48 L Estimated GFR > 60 BUN/Creatinine Ratio 41.7 H Glucose 132 H Uric Acid 4.7 Calcium 8.2 L Magnesium 2.0 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 Hyperlipidemia Hypertension Incisional hernia Pacemaker Prediabetes Primary osteoarthritis Subclinical hyperthyroidism Surgical History H/O heart surgery History of tonsillectomy and adenoidectomy Hx of cholecystectomy Family History Mother No pertinent past medical history Father No pertinent past medical history Social History household members: spouse Smoking Status: Never smoker alcohol intake: current Assessment & Plan Assessment & Plan narrative: 1. Acute cystitis - symptoms of weakness most likely due to acute cystitis, though possible mild heart failure as discussed below. - continued rocephin 1g q24 hours until today. Cultures with E. Faecium, changed to oral amoxicillin and will complete 5 additional days. - likely developed in setting of constipation noted below. - does not appear to have had monreal placed during her operative procedure based on review of surgeon and surgery nursing notes. 2. Constipation due to opiate therapy, improved - suspect related to opiates after surgery along with hernia repair, now improved with laxitive therapies. 3. Possible acute on chronic diastolic heart failure - will hold on additional IV fluids after the ER. May be due to fluid shifts after surgery, but weakness may be due to possible heart failure. ProBNP mildly elevated at 900 and CXR with possible mild congestion. Lung exam is unremarkable but patient is mildly tachypnic though this may be worsening with fluids given initially. -TTE with a normal EF and no signficant vavular disease. - PE low likelihood with home coumadin continued and negative US of her lower extremities. - diuresed with IV lasix initially with improvement. Continue oral furosemide daily as patient also midly hypertensive. 4 S/p recent repair of Incarcerated hernia - continue pain control as needed. 5. Chronic atrial fibrillation, tachy-bk syndrome, status post permanent pacemaker placement, on warfarin anticoagulation Continue warfarin. 6. Hypertension resume home losartan 7 Hyperlipidemia Continue statin therapy. 8. GERD Continue PPI. 9. Right wrist inflammatory arthritis - suspect gout or pseudogout with diuresis. Uric acid is 4.7. Given coumadin started on steroids today (instead of NSAIDs). Continue prednisone 40 mg until improvement then taper over 7 days. - XRs of R hand and wrist were negative for fracture. Code status Full, surrogate is patient's spouse. Prophylaxis Continue home warfarin. Disposition Admitted observation change to inpatient today. SNF likely tomorrow if R wrist improving. Quality VTE Deep Vein Thrombosis/Pulmonary Embolism Present on Admission: No
--- NOTE | 2023-01-26 16:09 | CM.DPC ---
DCP/continued: Reviewed chart. Initially it was thought that patient would be medically stable to transfer to [facility] today. However, in AM rounds Dr. Hdz reports that he will be keeping patient today. Patient with possible gout in her hand and may need to be treated. 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 As of now it is anticipated patient will d/c tomorrow 01-27-23. CM team following closely. P: [facility] when stable. AL
[2023-01-26] MEDS: WARFARIN 5 MG TABLET 7.5 MG PO (17:12)
[2023-01-26] MEDS: SENNOSIDES 8.6 MG TABLET 17.2 MG PO (21:41)
[2023-01-26] MEDS: CALCIUM CARBONATE 500 MG TAB 1000 MG PO (21:41)
[2023-01-26] MEDS: MAGNESIUM HYDROXIDE 30 ML UDC PO (21:41)
[2023-01-27] VITALS (8 sets, daily range): BP systolic 121–151; BP diastolic 52–83; PULSE 56–74; RESP 16–18; TEMP 36.4–36.9; O2SAT 92–94
[2023-01-27 05:29] LABS: Add Manual Diff / Slide Review NO; Basophils Absolute Auto 0 /uL (0-100); Basophils Percent Auto 0.2 % (0-2); Eosinophils Absolute Auto 0 /uL (0-450); Eosinophils Percent Auto 0.1 % (2-4); Hematocrit 33.9 % (36-46); Hemoglobin 11.5 g/dL (12.0-16.0); Lymphocytes Absolute Auto 800 /uL (1100-4500); Lymphocytes Percent Auto 8.3 % (25-40); Mean Corpuscular HGB Conc 33.8 % (30-36); Mean Corpuscular Hemoglobin 29.7 PG (26-34); Monocytes Absolute Auto 1000 /uL (0-900); Monocytes Percent Auto 10.6 % (3-14); Neutrophils Absolute Auto 7400 /uL (1500-7000); Neutrophils Percent Auto 80.8 % (50-75); Platelet Count 219 X10^3/uL (150-400); Red Blood Cell Count 3.85 X10^6/uL (4.0-5.2); Red Cell Distribution Width 14.5 % (11.6-14.8); White Blood Cell Count 9.2 X10^3/uL (4.5-11.0)
[2023-01-27 05:32] LABS: INR 1.8 (0.9-1.3); Prothrombin Time 20.5 SECONDS (10.1-12.7)
[2023-01-27 05:40] LABS: BUN Creatinine Ratio 68.4 (6-22); Blood Urea Nitrogen 39 mg/dL (7-17); Calcium 8.2 mg/dL (8.4-10.2); Carbon Dioxide 36 mmol/L (22-32); Chloride 97 mmol/L (98-107); Estimated Glomerular Filt Rate > 60 mL/min (>60); Glucose 133 mg/dL (80-110); HEMOLYSIS < 15 (0-50); Magnesium 2.6 mg/dL (1.6-2.3); Potassium 3.9 mmol/L (3.4-5.1); Sodium 138 mmol/L (137-145)
--- NOTE | 2023-01-27 07:47 | PM.DS.1 ---
History of Present Illness History of Present Illness Date Patient Seen: 01/27/23 Time Patient Seen: 07:48 Chief complaint: bilat LE swelling Narrative: Per H&P: This is an 82 year old female with PMH of tachy-bk syndrome s/p PPM, chronic atrial fibrillation on coumadin, HTN, HLD, prior heart surgery (unsure if ASD or VSD repair) long history of abdominal hernia who presented with abdominal pain. Abdominal pain initially started about 2 weeks ago after a spicy meal, was located over her hernia site, and was associated with mild nausea. Eventually the pain abated but returned yesterday evening after another spicy meal. The pain again was located over her hernia site, was sharp and constant. This time she had nausea and multiple episodes of emesis, with the last one she thought may be a bit bloody. She also noted worsening distension of her abdomen. She also endorses mildly dark stools but not loose stools. Last bowel movement was yesterday. CT scan showed a large hernia with loops of small bowel, with associated small bowel obstruction. Patient received pain medications, was able to be reduced by the ER physician with improvement in patient's distension and symptoms. Labs showed an elevated INR, CO2 of 40, but were otherwise unremarkable. She is not hungry currently. She denies passing any gas. Given medical comorbidities patient admitted to the hospitalist service with surgical consultation, with plans for hernia repair prior to discharge, probably tomorrow. 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 SN 01/24/23 17:14 Consult to Occupational Therapy Evaluate & Treat Comment: Physician Instructions: Evaluate and treat Discharge provider: Gerardo Mcnamara, DO Exam Vital Signs (past 8 hours): - 01/27/23 00:00 01/27/23 01:00 01/27/23 04:00 Temperature 97.6 F 98.0 F Pulse Rate 74 56 L Respiratory Rate 16 16 Blood Pressure 121/62 135/70 Pulse Oximetry 92 92 94 Oxygen Delivery Method Room Air 01/27/23 05:00 Temperature Pulse Rate Respiratory Rate Blood Pressure Pulse Oximetry 92 Oxygen Delivery Method Room Air Oxygen Delivery Method Room Air Oxygen Flow Rate 0 Objective Labs 01/27/23 05:15 01/27/23 05:15 Labs: Laboratory Results - last 24 hr 01/26/23 01/27/23 01/27/23 04:37 05:15 05:15 WBC 9.2 RBC 3.85 L Hgb 11.5 L Hct 33.9 L MCV 88.0 MCH 29.7 MCHC 33.8 RDW 14.5 Plt Count 219 Neut % (Auto) 80.8 H Lymph % (Auto) 8.3 L [place] % (Auto) 10.6 Eos % (Auto) 0.1 L Baso % (Auto) 0.2 Neut # (Auto) 7400 H Lymph # (Auto) 800 L [place] # (Auto) 1000 H Eos # (Auto) 0 Baso # (Auto) 0 PT INR Sodium 138 Potassium 3.9 Chloride 97 L Carbon Dioxide 36 H BUN 39 H Creatinine 0.57 Estimated GFR > 60 BUN/Creatinine Ratio 68.4 H Glucose 133 H Uric Acid 4.7 Calcium 8.2 L Magnesium 2.6 H 01/27/23 05:15 WBC RBC Hgb Hct MCV MCH MCHC RDW Plt Count Neut % (Auto) Lymph % (Auto) [place] % (Auto) Eos % (Auto) Baso % (Auto) Neut # (Auto) Lymph # (Auto) [place] # (Auto) Eos # (Auto) Baso # (Auto) PT 20.5 H INR 1.8 H Sodium Potassium Chloride Carbon Dioxide BUN Creatinine Estimated GFR BUN/Creatinine Ratio Glucose Uric Acid Calcium Magnesium 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 Hyperlipidemia Hypertension Incisional hernia Pacemaker Prediabetes Primary osteoarthritis Subclinical hyperthyroidism Surgical History H/O heart surgery History of tonsillectomy and adenoidectomy Hx of cholecystectomy Family History Mother No pertinent past medical history Father No pertinent past medical history Social History household members: spouse Smoking Status: Never smoker alcohol intake: current Discharge Plan Discharge Plan Patient Disposition: Home Provider Discharge Comment: Discharge orders & Medications Prescriptions: No Action atorvastatin 20 mg tablet 20 mg PO DAILY carvedilol 12.5 mg tablet 12.5 mg PO BID warfarin [Coumadin] 7.5 MG tablet 7.5 mg PO QDAY Qty: 0 Rx Instructions: 7.5 mg SUN, MON, WED, TUESDAY 5mg tu, thrus, sat calcium carbonate 650 MG tablet 650 mg PO PRN PRN (Reason: Acid Reflux) Qty: 0 docusate sodium 100 MG capsule 100 mg PO BIDP PRN (Reason: Constipation) Qty: 0 glucosamine sulfate-msm 1 EACH capsule 1 ea PO DAILY Qty: 0 [COQ10] 100 mg PO DAILY Qty: 0 omeprazole 20 mg PO DAILY Rx Instructions: daily 30 min prior to meals. benzonatate 100 mg Capsule 100 mg PO TID PRN (Reason: Cough) losartan 50 mg Tablet 50 mg PO BID carboxymethylcellulose sodium 1 % Drops, Liquid Gel 1 drp OPHTHALMIC (EYE) BID PRN (Reason: Dry Eyes) PreserVision AREDS 4,296 mcg-226 mg-90 mg Capsule 1 cap PO BID docusate sodium 100 mg Capsule 300 mg PO BID Rx Instructions: Take 3 caps twice a day. cholecalciferol (vitamin D3) 25 mcg (1,000 unit) Tablet 25 mcg PO DAILY amlodipine [Norvasc] 5 mg Tablet 5 mg PO DAILY Qty: 30 0RF oxycodone 5 mg Tablet 5 mg PO Q3H PRN (Reason: Pain, Moderate (4-6)) Qty: 20 0RF ondansetron 4 mg tablet,disintegrating 4 mg PO Q8H Qty: 20 0RF Follow up/Referrals: Марина Brody PA-C [Primary Care Provider] - Visit Report/Discharge Packet Stand Alone Forms: Patient Portal/API, Stroke Signs & Symptoms Discharge Data Primary Care Provider: Марина Brody Attending Provider: Lorne Hdz Admxavier Date/Time: 01/24/23 16:30 Quality VTE Deep Vein Thrombosis/Pulmonary Embolism Present on Admission: No
[2023-01-27] MEDS: DOCUSATE 100 MG CAPSULE PO (08:27)
[2023-01-27] MEDS: ATORVASTATIN 20 MG TABLET PO (08:27)
[2023-01-27] MEDS: FUROSEMIDE 20 MG TABLET PO (08:27)
[2023-01-27] MEDS: AMOXICILLIN 250 MG CAPSULE 500 MG PO (08:27)
[2023-01-27] MEDS: polyethylene glycoL 3350 17 GM POWD.PACK PO (08:27)
[2023-01-27] MEDS: predniSONE 20 MG TABLET 40 MG PO (08:28)
[2023-01-27] MEDS: carvediloL 12.5 MG TABLET PO (08:28)
[2023-01-27] MEDS: LOSARTAN 50 MG TABLET PO (08:28)
[2023-01-27] MEDS: CHOLECALCIFEROL (VITAMIN D3) 1,000 UNIT TABLET 1000 UNIT PO (08:28)
[2023-01-27] MEDS: AMLODIPINE 5 MG TABLET PO (08:28)
--- NOTE | 2023-01-27 09:24 | CM.DPC ---
DCP Cont: Patient is going to [facility] today. 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 Dr. Mcnamara completed orders, SURAJ Colin hospital nursing assistant, faxed them to [facility]. Updated nursing, and white board at main nurses station. Gave [facility] report number. Patient is aware that she is going to [facility] today. No COVID swab needed, confirmed with March. PASSR also completed. P: Patient is discharging to [facility] today with apple picking supervisor between noon-1215. Arely Parra RN/Synchronous Motor Assembler
--- NOTE | 2023-01-27 09:35 | P.DS_ITS ---
History of Present Illness <Nita Tobar MD - Last Filed: 01/28/23 14:42> History of Present Illness Date Patient Seen: 01/19/23 Time Patient Seen: 16:00 Chief complaint: bilat LE swelling Narrative: Per H&P: This is an 82 year old female with PMH of tachy-bk syndrome s/p PPM, chronic atrial fibrillation on coumadin, HTN, HLD, prior heart surgery (unsure if ASD or VSD repair) long history of abdominal hernia who presented with abdominal pain. Abdominal pain initially started about 2 weeks ago after a spicy meal, was located over her hernia site, and was associated with mild nausea. Eventually the pain abated but returned yesterday evening after another spicy meal. The pain again was located over her hernia site, was sharp and constant. This time she had nausea and multiple episodes of emesis, with the last one she thought may be a bit bloody. She also noted worsening distension of her abdomen. She also endorses mildly dark stools but not loose stools. Last bowel movement was yesterday. CT scan showed a large hernia with loops of small bowel, with associated small bowel obstruction. Patient received pain medications, was able to be reduced by the ER physician with improvement in patient's distension and symptoms. Labs showed an elevated INR, CO2 of 40, but were otherwise unremarkable. She is not hungry currently. She denies passing any gas. Given medical comorbidities patient admitted to the hospitalist service with surgical consultation, with plans for hernia repair prior to discharge, probably tomorrow. <Gerardo Mcnamara DO - Last Filed: 01/27/23 09:36> History of Present Illness Date Patient Seen: 01/27/23 Time Patient Seen: 07:49 Discharge Providers <Nita Tobar MD - Last Filed: 01/28/23 14:42> Provider Date of admission: 01/19/23 Discharge Date: 01/22/23 Primary care physician: Марина Brody PA-C Consults: General surgery, Dr. Kristin Gaytan Discharge provider: Nita Tobar MD <Gerardo Mcnamara DO - Last Filed: 01/27/23 09:36> Provider Discharge Date: 01/27/23 Summary <Nita Tobar MD - Last Filed: 01/28/23 14:42> Hospital Course Discharge Diagnosis: 1. Incarcerated hernia 2. SBO d/t incarcerated hernia, resolved 3. Chronic atrial fibrillation, tachy-bk syndrome, status post permanent pacemaker placement, on warfarin anticoagulation 4. Hypertension 5. Hyperlipidemia 6.? GERD Hospital Course: Pt was admitted w/SBO d/t incarcerated hernia. On admission, the hernia was successfully reduced. She recovered from the SBO and was taken to the OR for surgical repair of the hernia. She tolerated surgery well. Anticoagulation was resumed on the evening of surgery. On the date of discharge, pt reported her pain was well controlled, she was eating/drinking, and she requested d/c home. She was d/c'd home w/HH. She was advised she needs a f/u PT/INR to be done next week. Status at Discharge Overall status at discharge: patient is progressing back to baseline <Gerardo Mcnamara, DO - Last Filed: 01/27/23 09:36> Hospital Course Discharge Diagnosis: 1. Acute cystitis ?- symptoms of weakness most likely due to acute cystitis, though possible mild heart failure as discussed below. ?- continued rocephin 1g q24 hours until. Cultures with E. Faecium, changed to oral amoxicillin and will complete 5 additional days. ?- likely developed in setting of constipation noted below. ?- does not appear to have had monreal placed during her operative procedure based on review of surgeon and surgery nursing notes. 2. Constipation due to opiate therapy, improved ?- suspect related to opiates after surgery along with hernia repair, now improved with laxitive therapies. 3. Possible acute on chronic diastolic heart failure ?- will hold on additional IV fluids after the ER. May be due to fluid shifts after surgery, but weakness may be due to possible heart failure. ProBNP mildly elevated at 900 and CXR with possible mild congestion. Lung exam is unremarkable but patient is mildly tachypnic though this may be worsening with fluids given initially. ?- TTE with a normal EF and no signficant vavular disease. ?- PE low likelihood with home coumadin continued and negative US of her lower extremities. - diuresed with IV lasix initially with improvement. Continue oral furosemide daily as patient also midly hypertensive. 4 S/p recent repair of Incarcerated hernia ?- continue pain control as needed. 5. Chronic atrial fibrillation, tachy-bk syndrome, status post permanent pacemaker placement, on warfarin anticoagulation ?Continue warfarin. 6. Hypertension ?resume home losartan 7 Hyperlipidemia Continue statin therapy.? 8.? GERD Continue PPI. 9. Right wrist inflammatory arthritis ?- suspect gout or pseudogout with diuresis. Uric acid is 4.7. Given coumadin started on steroids today (instead of NSAIDs). Continue prednisone 40 mg until improvement then taper over 7 days. ?- XRs of R hand and wrist were negative for fracture. Hospital Course: Pt was admitted w/SBO d/t incarcerated hernia. On admission, the hernia was successfully reduced. She recovered from the SBO and was taken to the OR for surgical repair of the hernia. She tolerated surgery well. Anticoagulation was resumed on the evening of surgery. She worked with PT and SNF was recommended. Found to have UTI with enterococcus so put on po amoxicillin. Also found to have pulm edema which improved with lasix and put on po lasix daily on discharge. Prior to dc, had right wrist pain so prednisone x7 days with taper added. Exam <Nita Tobar MD - Last Filed: 01/28/23 14:42> Vital Signs (past 8 hours): - 01/26/23 00:00 01/26/23 01:00 01/26/23 04:00 Temperature 97.0 F L 97.9 F Pulse Rate 102 H 73 Respiratory Rate 19 17 Blood Pressure 149/85 H 150/76 H Pulse Oximetry 92 90 L 92 Oxygen Delivery Method Room Air 01/26/23 05:00 Temperature Pulse Rate Respiratory Rate Blood Pressure Pulse Oximetry 94 Oxygen Delivery Method Room Air Oxygen Delivery Method Room Air Oxygen Flow Rate 0 Narrative Exam Narrative: GEN:? Very pleasant elderly female, Alert and oriented x 3, NAD HEENT:NC, Face symmetric CHEST: Respiratory excursions symmetric, CTAB CV: RRR, no M/R/G ABD: Soft, mildly obese, mildly tender/ND, BT present in all 4 quadrants, old right upper quadrant surgical scar from previous cholecystectomy with new overlying surgical incision, hernia now gone EXTR: warm, well perfused, no C/C/E SKIN: warm and dry, no rash NEURO: Alert and oriented x 3, nonfocal <Gerardo Mcnamara DO - Last Filed: 01/27/23 09:36> Narrative Exam Narrative: GEN: Very pleasant elderly female, Alert and oriented x 3, NAD HEENT:NC, Face symmetric CHEST: Respiratory excursions symmetric, CTAB CV: RRR, no M/R/G ABD: Soft, appropriately tender over incision but no other location, non-dist ended EXTR: warm and well perfused, trace bilateral LE edema, R wrist on ulnar side there is erythema, warmth and tenderness. No obvious joint effusions. SKIN: warm and dry, no rash NEURO: Alert and oriented x 3, nonfocal Objective <Nita Tobar MD - Last Filed: 01/28/23 14:42> Labs 01/27/23 05:15 01/27/23 05:15 Labs: Laboratory Results - last 24 hr 01/26/23 01/26/23 04:37 04:37 WBC 10.4 RBC 3.88 L Hgb 11.6 L Hct 34.1 L MCV 88.0 MCH 29.8 MCHC 33.9 RDW 14.8 Plt Count 204 Neut % (Auto) 81.6 H Lymph % (Auto) 7.1 L [place] % (Auto) 10.9 Eos % (Auto) 0.2 L Baso % (Auto) 0.2 Neut # (Auto) 8500 H Lymph # (Auto) 700 L [place] # (Auto) 1100 H Eos # (Auto) 0 Baso # (Auto) 0 Sodium 137 Potassium 3.8 Chloride 96 L Carbon Dioxide 34 H BUN 20 H Creatinine 0.48 L Estimated GFR > 60 BUN/Creatinine Ratio 41.7 H Glucose 132 H Calcium 8.2 L Magnesium 2.0 PFSH <Nita Tobar MD - Last Filed: 01/28/23 14:42> Medical History Abdominal wall hernia Abnormal colonoscopy Adenomatous colon polyp Allergic rhinitis Atrial fibrillation Coronary atherosclerosis GERD (gastroesophageal reflux disease) Heart murmur Hiatal hernia Hypercoagulability due to atrial fibrillation Hyperlipidemia Hypertension Incisional hernia Pacemaker Prediabetes Primary osteoarthritis Subclinical hyperthyroidism Surgical History H/O heart surgery History of tonsillectomy and adenoidectomy Hx of cholecystectomy Family History Mother No pertinent past medical history Father No pertinent past medical history Social History household members: spouse Smoking Status: Never smoker alcohol intake: current Discharge Plan Discharge Plan Patient Disposition: SNF Transfer to: [facility] Provider Discharge Comment: I certify the postop hospital fpc care is medically necessary on a continuing basis for any conditions for which he/ she received care during this hospitalization.: Yes The receiving facility has agreed to accept transfer and provide medical tr eatment.: Yes Discharge orders & Medications Prescriptions: New sennosides [senna] 8.6 mg Tablet 8.6 mg PO BEDTIME Qty: 30 0RF prednisone 20 mg Tablet See Rx Instructions .ROUTE .COMPLEX Qty: 7 0RF Rx Instructions: 40 mg by mouth daily for 2 days then 20 mg by mouth daily for 2 days then 10mg by mouth daily for 2 days then stop furosemide 20 mg Tablet 20 mg PO DAILY Qty: 30 0RF amoxicillin 500 mg capsule 500 mg PO TID 4 Days Qty: 12 0RF Rx Instructions: start on 01/27 Continued atorvastatin 20 mg tablet 20 mg PO DAILY carvedilol 12.5 mg tablet 12.5 mg PO BID warfarin [Coumadin] 7.5 MG tablet 7.5 mg PO QDAY Qty: 0 Rx Instructions: 7.5 mg SUN, MON, WED, TUESDAY 5mg tu, thrus, sat calcium carbonate 650 MG tablet 650 mg PO PRN PRN (Reason: Acid Reflux) Qty: 0 docusate sodium 100 MG capsule 100 mg PO BIDP PRN (Reason: Constipation) Qty: 0 glucosamine sulfate-msm 1 EACH capsule 1 ea PO DAILY Qty: 0 [COQ10] 100 mg PO DAILY Qty: 0 oxycodone 5 mg Tablet 5 mg PO Q3H PRN (Reason: Pain, Moderate (4-6)) Qty: 20 0RF omeprazole 20 mg PO DAILY Rx Instructions: daily 30 min prior to meals. benzonatate 100 mg Capsule 100 mg PO TID PRN (Reason: Cough) losartan 50 mg Tablet 50 mg PO BID carboxymethylcellulose sodium 1 % Drops, Liquid Gel 1 drp OPHTHALMIC (EYE) BID PRN (Reason: Dry Eyes) PreserVision AREDS 4,296 mcg-226 mg-90 mg Capsule 1 cap PO BID docusate sodium 100 mg Capsule 300 mg PO BID Rx Instructions: Take 3 caps twice a day. cholecalciferol (vitamin D3) 25 mcg (1,000 unit) Tablet 25 mcg PO DAILY amlodipine [Norvasc] 5 mg Tablet 5 mg PO DAILY Qty: 30 0RF ondansetron 4 mg tablet,disintegrating 4 mg PO Q8H Qty: 20 0RF Follow up/Referrals: Марина Brody PA-C [Primary Care Provider] - 2 Weeks Visit Report/Discharge Packet Stand Alone Forms: Patient Portal/API, Stroke Signs & Symptoms Discharge Data Primary Care Provider: Марина Brody Attending Provider: Lorne Hdz Admit Date/Time: 01/24/23 16:30 Discharges patient from system. Discharge Date/Time: 01/27/23 12:14 Quality <Nita Tobar MD - Last Filed: 01/28/23 14:42> VTE Deep Vein Thrombosis/Pulmonary Embolism Present on Admission: No
--- NOTE | 2023-01-27 10:34 | PT.IPTN ---
Physical Therapy Treatment Note M2 PT-IP Current Condition Start: 01/24/23 13:53 Freq: Status: Active Protocol: Document 01/24/23 14:47 AW (Rec: 01/24/23 15:37 AW [id number]) Physical Therapy Current Condition Current Condition Evaluation Date 01/24/23 Treatment Diagnosis generalized weakness; impaired mobility and gait Onset Date 01/24/23 M3 PT-IP Subjective Start: 01/24/23 13:53 Freq: Status: Active Protocol: Document 01/27/23 10:19 KS (Rec: 01/27/23 11:51 KS [id number]) Subjective Physical Therapy Visit Type Type Treatment Note Visit Start Time 10:19 Visit Stop Time 10:34 Total Visit Minutes 15 Number of PLANT SAFETY ENGINEER Visits 3 Physical Therapy Visit Comments Patient Goals Improve strength for return to independent mobility M4 PT-IP Mobility and Gait Start: 01/24/23 13:53 Freq: Status: Active Protocol: Document 01/27/23 10:19 KS (Rec: 01/27/23 11:51 KS [id number]) PT-Bed Mobility Assessment Supine to Sit Supine to Sit Minimal Assistance,1 Person Assistance,Head of Bed Elevated,Bedrails Sit to Supine Sit to Supine Minimal Assistance,1 Person Assistance Scooting Scooting to Edge of Bed Moderate Assistance PT-Transfer Assessment Sit to and From Stand Sit to and from Stand Minimal Assistance,1 Person Assistance,Use of Upper Extremities Equipment Transfer Assistive Device Gait Belt,Front Wheeled Walker Orthotic/Prosthetic Devices or Brace: No Transfers Transfer Destination Bed Transfer Technique pt ambulated Transfer Ability Level of Assist Moderate Assistance,1 Person Assistance,Use of Upper Extremities Comments Mobility Comments Pt in bed upon arrival and agreeable to ambulate. Min to Mod A for bed mobility, most difficulty observed w/ pt scooting EOB. Min A for sit<> stand w/ FWW. Pt ambulated ~50 ft in room w/ CGA. Quick approach to fatigue. Min A for sit<>sup, pt left in bed w/ all needs in reach. Gait Assessment Gait Gait Assistance Required: Contact Guard Assist,1 Person Assist Assistive Devices Assistive Device Gait Belt,Front Wheeled Walker Orthotic/Prosthetic Devices or Brace: No Gait Deviations General Gait Pattern Antalgic,Decreased Stride Length,Decreased Feet Clearance,Flexed Trunk,Wide Based Gait Factors Limiting Gait Function Factors Limiting Gait Function Decreased Activity Tolerance, Decreased Strength,Poor Balance Comments Gait Comments See mobility comments Stair Climbing Assessment Comments Stair Climbing Comments Did not assess. PT-Balance Assessment Sitting Balance and Reactions Static Sitting Balance Ability Good Dynamic Sitting Balance Ability Fair Standing Balance and Reactions Static Standing Balance Ability Good Dynamic Standing Balance Ability Fair Device Used FWW M5 PT-IP Objective Assessments Start: 01/24/23 13:53 Freq: Status: Active Protocol: Document 01/24/23 14:47 AW (Rec: 01/24/23 15:37 AW [id number]) Orientation Orientation/Cognition Level of Alertness Alert Orientation Name,Day of Week,Place, Situation Language Function Ability No Deficits Noted Safety Awareness Understands Safety Issues Memory Description No Deficits Noted Gross Range of Motion Upper Extremity ROM Assessment Within Functional Limits Lower Extremity ROM Assessment Within Functional Limits Strength Lower Extremity Strength Assessment Bilaterally Impaired Hip R flexion 4/5; L flexion 3-/5 Knee R 4/5; L 3+/5 Ankle R 4+/5; L 4-/5 Coordination Assessment Gross Coordination Gross Coordination WNL Assessment Finger to Nose Test Normal Performance Foot Tapping Test Normal Performance Heel on Zepeda Test Normal Performance Sensation Assessment Sensation Gross Sensation WNL M6 PT-IP Treatment Start: 01/24/23 13:53 Freq: Status: Active Protocol: Document 01/27/23 10:19 KS (Rec: 01/27/23 11:51 KS [id number]) Physical Therapy Treatment Education Education Provided Safety M7 PT-IP Assessment and Plan Start: 01/24/23 13:53 Freq: Status: Active Protocol: Document 01/27/23 10:19 KS (Rec: 01/27/23 11:51 KS [id number]) PT Summary Assessment and Plan Potential Rehabilitation Potential Good Summary Impairments Pain,Strength,Balance,Bed Mobility,Transfers,Gait Progress Towards Goals Slow Progress due to Medical Issues,Slow Progress due to Activity Tolerance Assessment Summary Pt slowly progressing but remains limited by weakness and low activity tolerance. Requires Min to Mod A throughout treatment. She will benefit from SNF to improve functional mobility. Goals Bed Mobility Goal Standby Assistance Transfer Goal Standby Assistance,Front Wheeled Walker Gait Goal Standby Assistance,Front Wheel Walker Gait Distance 100 Other Goals - Up/down 2 steps with single railing - Pt will improve transfers and gait to IND with LRAD Days to Meet Goals 7 Frequency of Treatment Frequency Of Treatment Once a Day Treatment Plan Physical Therapy Treatment Plan Bed Mobility Training,Transfer Training,Gait Training, Therapeutic Exercise,Balance Retraining,Post Op Education, Discharge Planning,Hot or Cold Pack,Neuromuscular Re-ed Other Recommendations and Next Treatment reinforce education on Focus abdominal precautions; transfer trainin; gait with FWW as tolerated Precautions Abdominal Surgery Precautions Log Roll,Lifting Restrictions, Gait Belt above Incisional Area Recommendations To Nursing Amount of Assist Needed 1 Person Assist Discharge Recommendations PT Discharge Recommendations SNF Rehab Equipment Needed for Home Before FWW if going home Discharge Transportation Needs at Discharge Wheelchair/Cabulance
--- NOTE | 2023-01-27 12:15 | PC.NURSE ---
Pt had assistance from DIRECTOR FRAUD getting dressed [facility] Packet was given to tranportee that included MD signed med list and hard copy scripts. I called Liana to give her report. All questions answered at this time. Pt left unit with all belongings via wheelchair escorted by transferee @ 1214.
== END 2023-01-27 12:14 ==
LOC: ED 15:58 → AC 16:30
PROVIDERS: Admitting Provider Internal Medicine; Emergency Provider Emergency Medicine; PCP Physician Assistant; Referring Provider Emergency Medicine; Visit Provider Internal Medicine
DX: N30.00 Acute cystitis without hematuria (principal); R60.0 Localized edema; R53.1 Weakness; I48.91 Unspecified atrial fibrillation; Z79.01 Long term (current) use of anticoagulants; I10 Essential (primary) hypertension; E78.5 Hyperlipidemia, unspecified; E86.0 Dehydration; Z98.890 Other specified postprocedural states; K21.9 Gastro-esophageal reflux disease without esophagitis; I48.20 Chronic atrial fibrillation, unspecified; K59.00 Constipation, unspecified; Z20.822 Contact with and (suspected) exposure to COVID-19
CPT/HCPCS: 36415; 71045; 73110; 73130; 74022; 80048; 80053; 81003; 81015; 82550; 83690; 83735; 83880; 84484; 84550; 85025; 85610; 85730; 87077; 87086; 87185; 87186; 87635; 93306; 93971; 96361; 96365; 96366; 96375; 96376; 97116; 97162; 97166; 97530; 97535; 99285; C9803; G0378; J0696; J1940

== ENCOUNTER → 2024-02-07 13:36 | Outpatient (CLI) | payer MEDICARE, OTHER, SELFPAY ==
[2023-01-24 16:39] VITALS: BMI 30.8
--- NOTE | 2024-02-07 13:41 | DI.RAD.S_ITS ---
PROCEDURE: XR CHEST 2V INDICATIONS: COUGH TECHNIQUE: 2 views of the chest were acquired. COMPARISON: [facility], CR, XR CHEST 1V, 01/25/2023, 23:12. FINDINGS: Surgical changes and devices: Left chest wall pacemaker lead is in the region of right ventricle. Lungs and pleura: There is hyperinflation. No focal infiltrate. No pleural effusions or pneumothorax. Mediastinum: Mediastinal contours are normal. Heart size is enlarged. Bones and chest wall: No suspicious bony abnormalities. Soft tissues appear unremarkable. IMPRESSION: No acute cardiopulmonary pathology. Cardiomegaly. COPD. Dictated by: Adi Taveras M.D. on 02/07/2024 at 15:33 Approved by: Adi Taveras M.D. on 02/07/2024 at 15:35
== END ==
PROVIDERS: PCP Physician Assistant; Referring Provider Physician Assistant; Visit Provider Physician Assistant
DX: J44.9 Chronic obstructive pulmonary disease, unspecified (principal); I51.7 Cardiomegaly; R05.9 Cough, unspecified
CPT/HCPCS: 71046

== ENCOUNTER → 2024-03-07 10:41 | Outpatient (CLI) | payer MEDICARE, OTHER, SELFPAY ==
[2023-01-24 16:39] VITALS: BMI 30.8
[2024-03-07 11:50] LABS: Add Manual Diff / Slide Review NO; Basophils Absolute Auto 0 /uL (0-100); Basophils Percent Auto 0.6 % (0-2); Eosinophils Absolute Auto 100 /uL (0-450); Eosinophils Percent Auto 1.9 % (2-4); Hemoglobin 12.5 g/dL (12.0-16.0); Lymphocytes Absolute Auto 900 /uL (1100-4500); Lymphocytes Percent Auto 13.1 % (25-40); Mean Corpuscular HGB Conc 32.8 % (30-36); Mean Corpuscular Hemoglobin 29.7 PG (26-34); Mean Corpuscular Volume 90.5 fL (80-100); Monocytes Absolute Auto 600 /uL (0-900); Neutrophils Absolute Auto 5200 /uL (1500-7000); Neutrophils Percent Auto 75.4 % (50-75); Platelet Count 247 X10^3/uL (150-400); Red Cell Distribution Width 15.5 % (11.6-14.8)
[2024-03-07 12:14] LABS: Alanine Aminotransferase 16 IU/L (<35); Albumin 4.4 g/dL (3.5-5.0); Albumin Globulin Ratio 1.7 (1.0-2.8); Alkaline Phosphatase 109 U/L (38-126); Aspartate Aminotransferase 22 IU/L (14-36); BUN Creatinine Ratio 46.8 (6-22); Bilirubin Total 0.7 mg/dL (0.2-1.3); Blood Urea Nitrogen 22 mg/dL (7-17); Calcium 8.5 mg/dL (8.4-10.2); Carbon Dioxide 29 mmol/L (22-32); Chloride 104 mmol/L (98-107); Estimated Glomerular Filt Rate > 60 mL/min (>60); Globulin 2.6 g/dL (1.7-4.1); Glucose 173 mg/dL (80-110); HEMOLYSIS < 15 (0-50); Potassium 3.9 mmol/L (3.4-5.1); Sodium 141 mmol/L (137-145)
[2024-03-07 12:22] LABS: NT-proBNP (BNP-Adult 18+) 450 pg/mL (<450)
[2024-03-07 12:49] LABS: Thyroid Stimulating Hormone 0.527 uIU/mL (0.47-4.68)
== END ==
PROVIDERS: PCP Physician Assistant; Referring Provider Internal Medicine Cardiovascular Disease; Visit Provider Internal Medicine Cardiovascular Disease
DX: I48.21 Permanent atrial fibrillation (principal); R06.09 Other forms of dyspnea; I35.0 Nonrheumatic aortic (valve) stenosis; I25.10 Atherosclerotic heart disease of native coronary artery without angina pectoris; I10 Essential (primary) hypertension
CPT/HCPCS: 36415; 80053; 83880; 84443; 85025

== ENCOUNTER 2024-06-20 14:11 | Emergency (ER) | payer MEDICARE, OTHER, SELFPAY ==
[2023-01-24 16:39] VITALS: BMI 30.8
[2024-06-20] VITALS (34 sets, daily range): BP systolic 154–229; BP diastolic 71–163; PULSE 77–103; RESP 21–40; TEMP 36.8–36.9; O2SAT 85–98; BMI 28.3
--- NOTE | 2024-06-20 14:18 | EKG_ITS ---
[place] [id number] [place] [id number] Test Date: 2024-06-20 Pat Name: Lenka Gonzalez Department: [facility] Room: Gender: Female Outside Sales Account Manager: SURENDRA : 1940 Requested By: Order Number: [id number] Reading MD: Leon Koenig MD Measurements Intervals [place] Rate: 78 P: [place]: QRS: 61 QRSD: 86 T: -12 QT: 380 QTc: 433 Interpretive Statements Atrial fibrillation (old) Septal infarct , age undetermined Electronically Signed On 06-21-2024 7:36:14 PDT by Leon Koenig MD
--- NOTE | 2024-06-20 14:18 | DI.RAD.S_ITS ---
PROCEDURE: XR CHEST 1V INDICATIONS: Shortness of breath TECHNIQUE: One view of the chest was acquired. COMPARISON: [facility], CR, XR CHEST 2V, 02/07/2024, 13:41. FINDINGS: Surgical changes and devices: Pacemaker Lungs and pleura: Lungs are clear. Pulmonary venous congestion with question minimal interstitial pulmonary edema. No pleural effusions or pneumothorax. Mediastinum: Mediastinal contours appear normal. Unchanged marked cardiomegaly. Bones and chest wall: No suspicious bony lesions. Overlying soft tissues appear unremarkable. IMPRESSION: Marked cardiomegaly, as before. Question minimal interstitial pulmonary edema. Dictated by: En Nunez M.D. on 06/20/2024 at 16:52 Approved by: En Nunez M.D. on 06/20/2024 at 16:53
[2024-06-20 14:39] LABS: Add Manual Diff / Slide Review NO; Basophils Absolute Auto 0 /uL (0-100); Basophils Percent Auto 0.5 % (0-2); Eosinophils Absolute Auto 100 /uL (0-450); Eosinophils Percent Auto 1.6 % (2-4); Hematocrit 36.7 % (36-46); Hemoglobin 12.3 g/dL (12.0-16.0); Lymphocytes Absolute Auto 900 /uL (1100-4500); Lymphocytes Percent Auto 11.6 % (25-40); Mean Corpuscular HGB Conc 33.6 % (30-36); Mean Corpuscular Hemoglobin 30.2 PG (26-34); Mean Corpuscular Volume 89.9 fL (80-100); Monocytes Absolute Auto 700 /uL (0-900); Monocytes Percent Auto 9.7 % (3-14); Neutrophils Absolute Auto 5700 /uL (1500-7000); Neutrophils Percent Auto 76.6 % (50-75); Platelet Count 249 X10^3/uL (150-400); Red Blood Cell Count 4.08 X10^6/uL (4.0-5.2); Red Cell Distribution Width 14.8 % (11.6-14.8); White Blood Cell Count 7.5 X10^3/uL (4.5-11.0)
[2024-06-20 14:47] LABS: INR 2.4 (0.9-1.3); Prothrombin Time 28.3 SECONDS (9.4-12.5)
[2024-06-20 14:52] LABS: Alanine Aminotransferase 18 IU/L (<35); Albumin 4.1 g/dL (3.5-5.0); Albumin Globulin Ratio 1.2 (1.0-2.8); Alkaline Phosphatase 101 U/L (38-126); Aspartate Aminotransferase 22 IU/L (14-36); BUN Creatinine Ratio 38.9 (6-22); Bilirubin Total 0.8 mg/dL (0.2-1.3); Blood Urea Nitrogen 21 mg/dL (7-17); Calcium 8.9 mg/dL (8.4-10.2); Carbon Dioxide 30 mmol/L (22-32); Chloride 101 mmol/L (98-107); Estimated Glomerular Filt Rate > 60 mL/min (>60); Globulin 3.3 g/dL (1.7-4.1); Glucose 164 mg/dL (80-110); HEMOLYSIS < 15 (0-50); Potassium 4.2 mmol/L (3.4-5.1); Sodium 137 mmol/L (137-145); Total Protein 7.4 g/dL (6.3-8.2)
[2024-06-20 15:04] LABS: NT-proBNP (BNP-Adult 18+) 742 pg/mL (<450); Troponin I < 0.012 ng/mL (0.01-0.034)
--- NOTE | 2024-06-20 15:13 | ED.SOB ---
HPI - SOB/Dyspnea <Toby Rajput MD - Last Filed: 06/21/24 07:33> General Chief Complaint: Shortness of Breath/Dyspnea Stated Complaint: SoB Time Seen by Provider: 06/20/24 14:57 Source: patient Mode of arrival: Wheelchair History of Present Illness HPI Narrative: 84-year-old female complains of increasing shortness of breath over the last couple of weeks, some lower extremity swelling recent days, no history of heart or lung problems known. She denies trouble breathing when lying supine sleeping. She denies use of inhalers or asthma or COPD symptoms. No cough fevers or chills. Related Data Home Medications Medication Instructions Recorded Confirmed warfarin 7.5 mg tablet (Coumadin) 7.5 mg PO QDAY ##0 11/29/12 06/20/24 [COQ10] 100 mg PO DAILY ##0 02/12/17 03/01/23 calcium carbonate 650 mg PO PRN PRN Acid Reflux ##0 02/12/17 03/01/23 docusate sodium 100 mg capsule 100 mg PO BIDP PRN Constipation ##0 02/12/17 03/01/23 glucosamine 1 ea PO DAILY ##0 02/12/17 03/01/23 sulfate-methylsulfonylmethane 250 mg-250 mg capsule atorvastatin 20 mg tablet 20 mg PO DAILY 03/13/18 06/20/24 carvedilol 12.5 mg tablet 12.5 mg PO BID 03/13/18 06/20/24 benzonatate 100 mg capsule 100 mg PO TID PRN Cough 01/19/23 03/01/23 carboxymethylcellulose sodium 1 % 1 drp ophthalmic (eye) BID PRN Dry 01/19/23 03/01/23 eye liquid gel drops Eyes cholecalciferol (vitamin D3) 25 25 mcg PO DAILY 01/19/23 03/01/23 mcg (1,000 unit) tablet docusate sodium 100 mg capsule 300 mg PO BID 01/19/23 03/01/23 losartan 50 mg tablet 50 mg PO BID 01/19/23 06/20/24 omeprazole 20 mg PO DAILY 01/19/23 03/01/23 vitamins A,C,R-kkgd-cwgvtd 4,296 1 cap PO BID 01/19/23 03/01/23 mcg-226 mg-90 mg capsule (PreserVision AREDS) Previous Rx's Medication Instructions Recorded amlodipine 5 mg tablet (Norvasc) 5 mg PO DAILY #30 tabs 01/22/23 ondansetron 4 mg disintegrating 4 mg PO Q8H #20 tabs 01/22/23 tablet furosemide 20 mg tablet 20 mg PO DAILY #30 tabs 01/27/23 oxycodone 5 mg tablet 5 mg PO Q3H PRN Pain, Moderate 01/27/23 (4-6) #20 tabs prednisone 20 mg tablet See Rx Instructions .Route 01/27/23 .COMPLEX #7 tabs sennosides 8.6 mg tablet (senna) 8.6 mg PO BEDTIME #30 tabs 01/27/23 furosemide 20 mg tablet (Lasix) 20 mg PO DAILY #30 tabs 06/20/24 Allergies Allergy/AdvReac Type Severity Reaction Status Date / Time No Known Drug Allergies Allergy Verified 06/20/24 14:24 Review of Systems <Toby Rajput MD - Last Filed: 06/21/24 07:33> Review of Systems Narrative: see HPI Patient History <Toby Rajput MD - Last Filed: 06/21/24 07:33> Medical History Abdominal wall hernia Abnormal colonoscopy Adenomatous colon polyp Allergic rhinitis Atrial fibrillation Coronary atherosclerosis GERD (gastroesophageal reflux disease) Heart murmur Hiatal hernia Hypercoagulability due to atrial fibrillation Hyperlipidemia Hypertension Incisional hernia Pacemaker Prediabetes Primary osteoarthritis Subclinical hyperthyroidism Surgical History H/O heart surgery History of tonsillectomy and adenoidectomy Hx of cholecystectomy Family History Mother No pertinent past medical history Father No pertinent past medical history Social History household members: spouse Smoking Status: Never smoker alcohol intake: current Smoking Status: Never smoker alcohol intake frequency: holidays/special occasions only Substance Use Type: does not use Exam <Toby Rajput MD - Last Filed: 06/21/24 07:33> Narrative Exam Narrative: GENERAL: Well-developed patient, in mild distress. HEAD: Atraumatic. Normocephalic. EYES: Pupils equal round and reactive. Extraocular motions intact. No scleral icterus. No injection or drainage. ENT: Nose without bleeding, purulent drainage. Throat without erythema, tonsillar hypertrophy or exudate. Airway patent. NECK: Trachea midline. Non tender CARDIOVASCULAR: Regular rate and rhythm, soft grade 1-2 although systolic murmur left lower sternal border, gallops, or rubs. RESPIRATORY: Clear to auscultation. Breath sounds equal bilaterally. No wheezes, rales, or rhonchi. GASTROINTESTINAL: Abdomen soft, non-tender, nondistended. EXTREMITIES: No edema or joint tenderness. BACK: Nontender without deformity or crepitance. No flank tenderness. NEURO: AOx3. Grossly normal nonfocal neuro SKIN: No rash or erythema of visible areas Initial Vital Signs Initial Vital Signs: Vital Signs Temperature 98.3 F 06/20/24 14:21 Pulse Rate 79 06/20/24 14:21 Respiratory Rate 28 H 06/20/24 14:21 Blood Pressure 154/73 H 06/20/24 14:21 Pulse Oximetry 96 06/20/24 14:21 Oxygen Delivery Method Room Air 06/20/24 14:21 <Jailyn Gee MD - Last Filed: 06/20/24 22:24> Initial Vital Signs Initial Vital Signs: Vital Signs Temperature 98.3 F 06/20/24 14:21 Pulse Rate 79 06/20/24 14:21 Respiratory Rate 28 H 06/20/24 14:21 Blood Pressure 154/73 H 06/20/24 14:21 Pulse Oximetry 96 06/20/24 14:21 Oxygen Delivery Method Room Air 06/20/24 14:21 Course <Toby Rajput MD - Last Filed: 06/21/24 07:33> Orders Ordered: Discontinued Medications Albuterol (Albuterol Hfa Mdi 60 Puff/8 Gm Inhaler) 2 puff INH NOW ONE Stop: 06/20/24 15:24 Last Admin: 06/20/24 15:32 Dose: Not Given Documented By: SAT Albuterol (Albuterol Hfa Mdi 60 Puff/8 Gm Inhaler) 2 puff INH NOW ONE Stop: 06/20/24 16:07 Last Admin: 06/20/24 21:19 Dose: Not Given Documented By: BS Albuterol/Ipratropium (Albuterol/Ipratropium 3 Ml Ampul) 3 ml INH NOW ONE Stop: 06/20/24 16:06 Last Admin: 06/20/24 16:12 Dose: 3 ml Documented By: SAT Furosemide (Furosemide 40 Mg/4 Ml Vial) 40 mg IV NOW ONE Stop: 06/20/24 16:09 Last Admin: 06/20/24 16:34 Dose: 40 mg Documented By: BS Furosemide (Furosemide 40 Mg/4 Ml Vial) 40 mg IV NOW ONE Stop: 06/20/24 18:22 Last Admin: 06/20/24 18:30 Dose: 40 mg Documented By: BS Vital Signs Vital signs: Vital Signs - 8 hr 06/20/24 14:41 06/20/24 14:42 06/20/24 14:42 Pulse Rate 78 79 Respiratory Rate 31 H 34 H Blood Pressure 187/88 H Pulse Oximetry 95 94 Oxygen Delivery Method Oxygen Flow Rate 06/20/24 15:00 06/20/24 15:00 06/20/24 15:30 Pulse Rate 81 81 Respiratory Rate 33 H 35 H Blood Pressure 186/84 H Pulse Oximetry 93 93 Oxygen Delivery Method Oxygen Flow Rate 06/20/24 15:30 06/20/24 15:41 06/20/24 15:41 Pulse Rate 100 H Respiratory Rate 21 Blood Pressure 182/85 H 229/163 H Pulse Oximetry Oxygen Delivery Method Oxygen Flow Rate 06/20/24 15:44 06/20/24 15:44 06/20/24 15:47 Pulse Rate 86 Respiratory Rate 40 H Blood Pressure 218/101 H Pulse Oximetry 98 85 L Oxygen Delivery Method Oxygen Flow Rate 06/20/24 16:00 06/20/24 16:01 06/20/24 16:01 Pulse Rate 85 88 Respiratory Rate 38 H 38 H Blood Pressure 204/95 H Pulse Oximetry 97 97 Oxygen Delivery Method Oxygen Flow Rate 06/20/24 16:13 06/20/24 16:30 06/20/24 16:31 Pulse Rate 81 82 81 Respiratory Rate 28 H 31 H 31 H Blood Pressure Pulse Oximetry 97 98 97 Oxygen Delivery Method Nasal Cannula Oxygen Flow Rate 2 06/20/24 16:31 06/20/24 17:00 06/20/24 17:01 Pulse Rate 83 88 Respiratory Rate 33 H 33 H Blood Pressure 193/82 H Pulse Oximetry 95 96 Oxygen Delivery Method Nasal Cannula Oxygen Flow Rate 2 06/20/24 17:01 06/20/24 17:30 06/20/24 17:50 Pulse Rate 103 H 88 Respiratory Rate 35 H 29 H Blood Pressure 187/83 H Pulse Oximetry Oxygen Delivery Method Oxygen Flow Rate 06/20/24 17:50 06/20/24 18:00 06/20/24 18:00 Pulse Rate 87 Respiratory Rate 29 H Blood Pressure 179/76 H 176/77 H Pulse Oximetry Oxygen Delivery Method Oxygen Flow Rate 06/20/24 18:30 06/20/24 18:31 06/20/24 18:31 Pulse Rate 84 82 Respiratory Rate 34 H 32 H Blood Pressure 188/78 H Pulse Oximetry 92 92 Oxygen Delivery Method Room Air Room Air Oxygen Flow Rate 2 2 06/20/24 18:51 06/20/24 18:51 06/20/24 19:00 Pulse Rate 84 84 Respiratory Rate 32 H 32 H Blood Pressure 194/81 H Pulse Oximetry 96 96 Oxygen Delivery Method Oxygen Flow Rate 06/20/24 19:00 06/20/24 19:14 06/20/24 19:14 Pulse Rate 86 Respiratory Rate 32 H Blood Pressure 172/71 H 175/94 H Pulse Oximetry 89 L Oxygen Delivery Method Room Air Oxygen Flow Rate 06/20/24 19:30 06/20/24 19:30 06/20/24 20:00 Pulse Rate 83 84 Respiratory Rate 30 H 29 H Blood Pressure 163/88 H Pulse Oximetry 91 92 Oxygen Delivery Method Oxygen Flow Rate 06/20/24 20:01 06/20/24 20:01 06/20/24 20:30 Pulse Rate 83 79 Respiratory Rate 29 H 28 H Blood Pressure 183/81 H Pulse Oximetry 91 92 Oxygen Delivery Method Oxygen Flow Rate 06/20/24 20:31 06/20/24 20:31 06/20/24 20:58 Pulse Rate 81 77 Respiratory Rate 33 H 30 H Blood Pressure 180/79 H Pulse Oximetry 91 93 Oxygen Delivery Method Oxygen Flow Rate 06/20/24 20:58 06/20/24 21:00 06/20/24 21:00 Pulse Rate 78 Respiratory Rate 29 H Blood Pressure 166/77 H 164/76 H Pulse Oximetry 93 Oxygen Delivery Method Oxygen Flow Rate 06/20/24 21:30 Pulse Rate 84 Respiratory Rate 29 H Blood Pressure Pulse Oximetry 93 Oxygen Delivery Method Room Air Oxygen Flow Rate <Jailyn A Gerard, MD - Last Filed: 06/20/24 22:24> Orders Ordered: Discontinued Medications Albuterol (Albuterol Hfa Mdi 60 Puff/8 Gm Inhaler) 2 puff INH NOW ONE Stop: 06/20/24 15:24 Last Admin: 06/20/24 15:32 Dose: Not Given Documented By: SAT Albuterol (Albuterol Hfa Mdi 60 Puff/8 Gm Inhaler) 2 puff INH NOW ONE Stop: 06/20/24 16:07 Last Admin: 06/20/24 21:19 Dose: Not Given Documented By: BS Albuterol/Ipratropium (Albuterol/Ipratropium 3 Ml Ampul) 3 ml INH NOW ONE Stop: 06/20/24 16:06 Last Admin: 06/20/24 16:12 Dose: 3 ml Documented By: SAT Furosemide (Furosemide 40 Mg/4 Ml Vial) 40 mg IV NOW ONE Stop: 06/20/24 16:09 Last Admin: 06/20/24 16:34 Dose: 40 mg Documented By: BS Furosemide (Furosemide 40 Mg/4 Ml Vial) 40 mg IV NOW ONE Stop: 06/20/24 18:22 Last Admin: 06/20/24 18:30 Dose: 40 mg Documented By: BS Vital Signs Vital signs: Vital Signs - 8 hr 06/20/24 14:41 06/20/24 14:42 06/20/24 14:42 Pulse Rate 78 79 Respiratory Rate 31 H 34 H Blood Pressure 187/88 H Pulse Oximetry 95 94 Oxygen Delivery Method Oxygen Flow Rate 06/20/24 15:00 06/20/24 15:00 06/20/24 15:30 Pulse Rate 81 81 Respiratory Rate 33 H 35 H Blood Pressure 186/84 H Pulse Oximetry 93 93 Oxygen Delivery Method Oxygen Flow Rate 06/20/24 15:30 06/20/24 15:41 06/20/24 15:41 Pulse Rate 100 H Respiratory Rate 21 Blood Pressure 182/85 H 229/163 H Pulse Oximetry Oxygen Delivery Method Oxygen Flow Rate 06/20/24 15:44 06/20/24 15:44 06/20/24 15:47 Pulse Rate 86 Respiratory Rate 40 H Blood Pressure 218/101 H Pulse Oximetry 98 85 L Oxygen Delivery Method Oxygen Flow Rate 06/20/24 16:00 06/20/24 16:01 06/20/24 16:01 Pulse Rate 85 88 Respiratory Rate 38 H 38 H Blood Pressure 204/95 H Pulse Oximetry 97 97 Oxygen Delivery Method Oxygen Flow Rate 06/20/24 16:13 06/20/24 16:30 06/20/24 16:31 Pulse Rate 81 82 81 Respiratory Rate 28 H 31 H 31 H Blood Pressure Pulse Oximetry 97 98 97 Oxygen Delivery Method Nasal Cannula Oxygen Flow Rate 2 06/20/24 16:31 06/20/24 17:00 06/20/24 17:01 Pulse Rate 83 88 Respiratory Rate 33 H 33 H Blood Pressure 193/82 H Pulse Oximetry 95 96 Oxygen Delivery Method Nasal Cannula Oxygen Flow Rate 2 06/20/24 17:01 06/20/24 17:30 06/20/24 17:50 Pulse Rate 103 H 88 Respiratory Rate 35 H 29 H Blood Pressure 187/83 H Pulse Oximetry Oxygen Delivery Method Oxygen Flow Rate 06/20/24 17:50 06/20/24 18:00 06/20/24 18:00 Pulse Rate 87 Respiratory Rate 29 H Blood Pressure 179/76 H 176/77 H Pulse Oximetry Oxygen Delivery Method Oxygen Flow Rate 06/20/24 18:30 06/20/24 18:31 06/20/24 18:31 Pulse Rate 84 82 Respiratory Rate 34 H 32 H Blood Pressure 188/78 H Pulse Oximetry 92 92 Oxygen Delivery Method Room Air Room Air Oxygen Flow Rate 2 2 06/20/24 18:51 06/20/24 18:51 06/20/24 19:00 Pulse Rate 84 84 Respiratory Rate 32 H 32 H Blood Pressure 194/81 H Pulse Oximetry 96 96 Oxygen Delivery Method Oxygen Flow Rate 06/20/24 19:00 06/20/24 19:14 06/20/24 19:14 Pulse Rate 86 Respiratory Rate 32 H Blood Pressure 172/71 H 175/94 H Pulse Oximetry 89 L Oxygen Delivery Method Room Air Oxygen Flow Rate 06/20/24 19:30 06/20/24 19:30 06/20/24 20:00 Pulse Rate 83 84 Respiratory Rate 30 H 29 H Blood Pressure 163/88 H Pulse Oximetry 91 92 Oxygen Delivery Method Oxygen Flow Rate 06/20/24 20:01 06/20/24 20:01 06/20/24 20:30 Pulse Rate 83 79 Respiratory Rate 29 H 28 H Blood Pressure 183/81 H Pulse Oximetry 91 92 Oxygen Delivery Method Oxygen Flow Rate 06/20/24 20:31 06/20/24 20:31 06/20/24 20:58 Pulse Rate 81 77 Respiratory Rate 33 H 30 H Blood Pressure 180/79 H Pulse Oximetry 91 93 Oxygen Delivery Method Oxygen Flow Rate 06/20/24 20:58 06/20/24 21:00 06/20/24 21:00 Pulse Rate 78 Respiratory Rate 29 H Blood Pressure 166/77 H 164/76 H Pulse Oximetry 93 Oxygen Delivery Method Oxygen Flow Rate 06/20/24 21:30 Pulse Rate 84 Respiratory Rate 29 H Blood Pressure Pulse Oximetry 93 Oxygen Delivery Method Room Air Oxygen Flow Rate MDM - SOB/Dyspnea <Tboy Rajput MD - Last Filed: 06/21/24 07:33> Lab Data Attestation: I reviewed the patient's lab results. 06/20/24 14:30 06/20/24 14:30 Labs: Lab Results 06/20/24 06/20/24 Range/Units 14:30 17:00 WBC 7.5 (4.5-11.0) X10^3/uL RBC 4.08 (4.0-5.2) X10^6/uL Hgb 12.3 (12.0-16.0) g/dL Hct 36.7 (36-46) % MCV 89.9 (80-100) fL MCH 30.2 (26-34) PG MCHC 33.6 (30-36) % RDW 14.8 (11.6-14.8) % Plt Count 249 (150-400) X10^3/uL Neut % (Auto) 76.6 H (50-75) % Lymph % (Auto) 11.6 L (25-40) % [place] % (Auto) 9.7 (3-14) % Eos % (Auto) 1.6 L (2-4) % Baso % (Auto) 0.5 (0-2) % Neut # (Auto) 5700 (5957-6471) /uL Lymph # (Auto) 900 L (8188-5266) /uL [place] # (Auto) 700 (0-900) /uL Eos # (Auto) 100 (0-450) /uL Baso # (Auto) 0 (0-100) /uL PT 28.3 H (9.4-12.5) SECONDS INR 2.4 H (0.9-1.3) Sodium 137 (137-145) mmol/L Potassium 4.2 (3.4-5.1) mmol/L Chloride 101 (98-107) mmol/L Carbon Dioxide 30 (22-32) mmol/L BUN 21 H (7-17) mg/dL Creatinine 0.54 (0.52-1.04) mg/dL Estimated GFR > 60 (>60) mL/min BUN/Creatinine Ratio 38.9 H (6-22) Glucose 164 H (80-110) mg/dL Lactate 1.0 (0.7-2.1) mmol/L Calcium 8.9 (8.4-10.2) mg/dL Total Bilirubin 0.8 (0.2-1.3) mg/dL AST 22 (14-36) IU/L ALT 18 (<35) IU/L Alkaline Phosphatase 101 (38-126) U/L Troponin I < 0.012 < 0.012 (0.01-0.034) ng/mL NT-Pro-B Natriuret Pep 742 H (<450) pg/mL Total Protein 7.4 (6.3-8.2) g/dL Albumin 4.1 (3.5-5.0) g/dL Globulin 3.3 (1.7-4.1) g/dL Albumin/Globulin Ratio 1.2 (1.0-2.8) ECG Data Attestation: I personally reviewed and interpreted this ECG as follows: Interpretation: Atrial fibrillation with ventricular response rate 78, no obvious ST segment elevation or depression changes. QRS 86, QTC 433. MDM Narrative Medical decision making narrative: 84-year-old female with shortness of breath for the last couple of weeks, increasing lower extremity edema, not currently on a diuretic regimen. History of atrial fibrillation, takes Eliquis chronic anticoagulation. Lower extremity edema, no crackles, speaks in full sentences. Chest x-ray with some possible fluid overload changes. EKG without obvious ischemic changes, atrial fibrillation noted. Initial troponin negative. BNP 700s. IV Lasix dose. We will repeat interval troponin. Records review. Echocardiogram report from 05/24/2024, [facility]. Impressions: ?Left ventricular size and systolic function are normal, with an EF of 56%. There is mild concentric increased left ventricular wall thickness. Right ventricular size is normal and systolic function is mildly reduced. Left atrial chamber dimension is severely dilated. There is less than mild aortic valve stenosis with peak velocity of 2.1 M/S, mean gradient of 10 mhHg, aortic valve area 1.8 cm2, dimensionless index 0.55, stroke volume index 46 ml/m2. There is moderate mitral valve stenosis. Diastolic gradient 6 mm Hg. Calcified mitral annulus, extending into the anterior mitral valve apparatus. There is no low moderate mitral valve regurgitation. There is [id number]-kynzidum tricuspid valve regurgitation. Moderate pulmonary hypertension, estimated PA P [address] mm Hg. Interpretation from Dr. Serafin Lyon MD. Repeat troponin also negative and unmeasurable. Patient having response to IV Lasix. Patient does not take diuretics. Trial of diuretic therapy. Lasix 20 mg daily for now, close follow up with regular provider advised next week to check symptoms and electrolytes. Discharged home with . <Jailyn Gee MD - Last Filed: 06/20/24 22:24> Lab Data Labs: Lab Results 06/20/24 06/20/24 Range/Units 14:30 17:00 WBC 7.5 (4.5-11.0) X10^3/uL RBC 4.08 (4.0-5.2) X10^6/uL Hgb 12.3 (12.0-16.0) g/dL Hct 36.7 (36-46) % MCV 89.9 (80-100) fL MCH 30.2 (26-34) PG MCHC 33.6 (30-36) % RDW 14.8 (11.6-14.8) % Plt Count 249 (150-400) X10^3/uL Neut % (Auto) 76.6 H (50-75) % Lymph % (Auto) 11.6 L (25-40) % [place] % (Auto) 9.7 (3-14) % Eos % (Auto) 1.6 L (2-4) % Baso % (Auto) 0.5 (0-2) % Neut # (Auto) 5700 (2575-4098) /uL Lymph # (Auto) 900 L (7445-6444) /uL [place] # (Auto) 700 (0-900) /uL Eos # (Auto) 100 (0-450) /uL Baso # (Auto) 0 (0-100) /uL PT 28.3 H (9.4-12.5) SECONDS INR 2.4 H (0.9-1.3) Sodium 137 (137-145) mmol/L Potassium 4.2 (3.4-5.1) mmol/L Chloride 101 (98-107) mmol/L Carbon Dioxide 30 (22-32) mmol/L BUN 21 H (7-17) mg/dL Creatinine 0.54 (0.52-1.04) mg/dL Estimated GFR > 60 (>60) mL/min BUN/Creatinine Ratio 38.9 H (6-22) Glucose 164 H (80-110) mg/dL Lactate 1.0 (0.7-2.1) mmol/L Calcium 8.9 (8.4-10.2) mg/dL Total Bilirubin 0.8 (0.2-1.3) mg/dL AST 22 (14-36) IU/L ALT 18 (<35) IU/L Alkaline Phosphatase 101 (38-126) U/L Troponin I < 0.012 < 0.012 (0.01-0.034) ng/mL NT-Pro-B Natriuret Pep 742 H (<450) pg/mL Total Protein 7.4 (6.3-8.2) g/dL Albumin 4.1 (3.5-5.0) g/dL Globulin 3.3 (1.7-4.1) g/dL Albumin/Globulin Ratio 1.2 (1.0-2.8) MDM Narrative Medical decision making narrative: 84-year-old female with shortness of breath for the last couple of weeks, increasing lower extremity edema, not currently on a diuretic regimen. History of atrial fibrillation, takes Eliquis chronic anticoagulation. Lower extremity edema, no crackles, speaks in full sentences. Chest x-ray with some possible fluid overload changes. EKG without obvious ischemic changes, atrial fibrillation noted. Initial troponin negative. BNP 700s. IV Lasix dose. We will repeat interval troponin. Records review. Echocardiogram report from 05/24/2024, [facility]. Impressions: ?Left ventricular size and systolic function are normal, with an EF of 56%. There is mild concentric increased left ventricular wall thickness. Right ventricular size is normal and systolic function is mildly reduced. Left atrial chamber dimension is severely dilated. There is less than mild aortic valve stenosis with peak velocity of 2.1 M/S, mean gradient of 10 mhHg, aortic valve area 1.8 cm2, dimensionless index 0.55, stroke volume index 46 ml/m2. There is moderate mitral valve stenosis. Diastolic gradient 6 mm Hg. Calcified mitral annulus, extending into the anterior mitral valve apparatus. There is no low moderate mitral valve regurgitation. There is wgxm-sy-zdhqsamg tricuspid valve regurgitation. Moderate pulmonary hypertension, estimated PA P [address] mm Hg. Interpretation from Dr. Serafin Lyon MD. Repeat troponin also negative and unmeasurable. Patient having response to IV Lasix. Patient does not take diuretics. Trial of diuretic therapy. Lasix 20 mg daily for now, close follow up with regular provider advised next week to check symptoms and electrolytes. Discharged home with . Dr. Gee -patient diuresed for several additional hours in the emergency department. Saturation stable after ambulation. Patient requesting to go home. Critical Care Time <Toby Rajput MD - Last Filed: 06/21/24 07:33> Critical Care Time Critical Care Time: Yes Total Critical Care Time: 31 Attestation: The high probability of a clinically significant, sudden or life threatening deterioration of the [cardiopulmonary] system(s) required my full and direct attention, intervention and personal management. The aggregate critical care time was [31] minutes. This time is in addition to time spent performing reported procedures but includes the following: [x] Data Review and interpretation [x] Patient assessment and monitoring of vital signs [x] Documentation [x] Medication orders and management Discharge Plan Departure Patient Disposition: Home Clinical Impression: Shortness of breath, Swelling of both lower extremities, Congestive heart failure Activity Restrictions/Additional Instructions: Shortness of breath with lower extremity swelling. Echocardiogram done last month showed good ejection fraction. You did not seem to recognize Lasix/furosemide though it apparently was on your medication list at some point in the past. Chest x-ray was suspicious for some degree of fluid overload. EKG and serial blood tests did not show evidence of heart attack at this time. IV Lasix dose given. Further Lasix once daily as an outpatient for now. Recheck symptoms and electrolytes early next week with your regular doctor. Follow up with your home care provider as scheduled. Return to this/nearest emergency department for any change worsening symptoms or any concerns prior Prescriptions: New furosemide [Lasix] 20 mg tablet 20 mg PO DAILY Qty: 30 0RF No Action atorvastatin 20 mg tablet 20 mg PO DAILY carvedilol 12.5 mg tablet 12.5 mg PO BID warfarin [Coumadin] 7.5 MG tablet 7.5 mg PO QDAY Qty: 0 Rx Instructions: 7.5 mg SUN, MON, WED, GABRIELLA 5mg tues, thrus, sat calcium carbonate 650 MG tablet 650 mg PO PRN PRN (Reason: Acid Reflux) Qty: 0 docusate sodium 100 MG capsule 100 mg PO BIDP PRN (Reason: Constipation) Qty: 0 glucosamine sulfate-msm 1 EACH capsule 1 ea PO DAILY Qty: 0 [COQ10] 100 mg PO DAILY Qty: 0 sennosides [senna] 8.6 mg Tablet 8.6 mg PO BEDTIME Qty: 30 0RF prednisone 20 mg Tablet See Rx Instructions .ROUTE .COMPLEX Qty: 7 0RF Rx Instructions: 40 mg by mouth daily for 2 days then 20 mg by mouth daily for 2 days then 10mg by mouth daily for 2 days then stop furosemide 20 mg Tablet 20 mg PO DAILY Qty: 30 0RF oxycodone 5 mg Tablet 5 mg PO Q3H PRN (Reason: Pain, Moderate (4-6)) Qty: 20 0RF omeprazole 20 mg PO DAILY Rx Instructions: daily 30 min prior to meals. benzonatate 100 mg Capsule 100 mg PO TID PRN (Reason: Cough) losartan 50 mg Tablet 50 mg PO BID carboxymethylcellulose sodium 1 % Drops, Liquid Gel 1 drp OPHTHALMIC (EYE) BID PRN (Reason: Dry Eyes) PreserVision AREDS 4,296 mcg-226 mg-90 mg Capsule 1 cap PO BID docusate sodium 100 mg Capsule 300 mg PO BID Rx Instructions: Take 3 caps twice a day. cholecalciferol (vitamin D3) 25 mcg (1,000 unit) Tablet 25 mcg PO DAILY amlodipine [Norvasc] 5 mg Tablet 5 mg PO DAILY Qty: 30 0RF ondansetron 4 mg tablet,disintegrating 4 mg PO Q8H Qty: 20 0RF Referrals: London Montgomery MD [Physician] - Temi Feliciano PA-C [Primary Care Provider] - Stand Alone Forms: Patient Portal/API
[2024-06-20] MEDS: ALBUTEROL/IPRATROPIUM 3 ML AMPUL INH (16:12)
[2024-06-20] MEDS: FUROSEMIDE 40 MG/4 ML VIAL IV ×2 (16:34→18:30)
[2024-06-20 17:35] LABS: Troponin I < 0.012 ng/mL (0.01-0.034)
== END 2024-06-20 22:28 | disposition home or self-care (01) ==
PROVIDERS: Emergency Provider Emergency Medicine; PCP Physician Assistant
DX: R06.02 Shortness of breath (principal); R60.0 Localized edema; I50.9 Heart failure, unspecified; I10 Essential (primary) hypertension
CPT/HCPCS: 36415; 71045; 80053; 83605; 83880; 84484; 85025; 85610; 93005; 93010; 94640; 96374; 96376; 99284; 99285; A9270; J1940

== ENCOUNTER 2025-03-11 10:17 | Emergency (ER) | payer MEDICARE, OTHER, SELFPAY ==
[2023-01-24 16:39] VITALS: BMI 30.8
[2025-03-11] VITALS (24 sets, daily range): BP systolic 128–204; BP diastolic 63–97; PULSE 61–87; RESP 16–36; TEMP 36.6; O2SAT 92–98; BMI 30.2
--- NOTE | 2025-03-11 10:27 | DI.RAD.S_ITS ---
PROCEDURE: XR CHEST 1V INDICATIONS: Shortness of breath TECHNIQUE: One view of the chest was acquired. COMPARISON: [facility], CR, XR CHEST 1V, 06/20/2024, 14:30. [facility], CR, XR CHEST 2V, 02/07/2024, 13:41. FINDINGS AND IMPRESSION: Left chest wall pulse generator with cardiac electrode leads. Cardiomegaly. Diffusely prominent interstitium, likely edema versus atypical infection. No drainable pleural effusions. Degenerative osseous changes. Old right humeral deformity. Dictated by: Darinel Hui M.D. on 03/11/2025 at 10:56 Approved by: Darinel Hui M.D. on 03/11/2025 at 10:57
--- NOTE | 2025-03-11 10:35 | EKG_ITS ---
[place] [id number] [place] [id number] Test Date: 2025-03-11 Pat Name: Lenka Gonzalez Department: [facility] Room: Gender: Female [employer]: : 1940 Requested By: Order Number: [id number] Reading MD: Robinson Ruffin Measurements Intervals [place] Rate: 78 P: TN: QRS: 90 QRSD: 86 T: -29 QT: 372 QTc: 424 Interpretive Statements Atrial fibrillation Rightward axis Nonspecific ST and T wave abnormality Electronically Signed On 03-11-2025 15:31:34 PDT by Robinson Ruffin
[2025-03-11 11:01] LABS: Add Manual Diff / Slide Review NO; Basophils Absolute Auto 0 /uL (0-100); Basophils Percent Auto 0.6 % (0-2); Eosinophils Absolute Auto 100 /uL (0-450); Eosinophils Percent Auto 1.1 % (2-4); Hematocrit 40.2 % (36-46); Hemoglobin 13.2 g/dL (12.0-16.0); Lymphocytes Absolute Auto 900 /uL (1100-4500); Lymphocytes Percent Auto 10.8 % (25-40); Mean Corpuscular HGB Conc 32.8 % (30-36); Mean Corpuscular Hemoglobin 29.4 PG (26-34); Mean Corpuscular Volume 89.7 fL (80-100); Monocytes Absolute Auto 700 /uL (0-900); Monocytes Percent Auto 7.9 % (3-14); Neutrophils Absolute Auto 6600 /uL (1500-7000); Neutrophils Percent Auto 79.6 % (50-75); Platelet Count 202 X10^3/uL (150-400); Red Blood Cell Count 4.48 X10^6/uL (4.0-5.2); Red Cell Distribution Width 14.9 % (11.6-14.8); White Blood Cell Count 8.3 X10^3/uL (4.5-11.0)
[2025-03-11 11:03] LABS: INR 2.8 (0.9-1.3)
[2025-03-11 11:06] LABS: Lactate (Lactic Acid) 1.2 mmol/L (0.7-2.1)
[2025-03-11 11:07] LABS: Alanine Aminotransferase 21 IU/L (<35); Albumin 4.5 g/dL (3.5-5.0); Albumin Globulin Ratio 1.4 (1.0-2.8); Alkaline Phosphatase 91 U/L (38-126); Aspartate Aminotransferase 29 IU/L (14-36); BUN Creatinine Ratio 48.9 (6-22); Blood Urea Nitrogen 22 mg/dL (7-17); Carbon Dioxide 31 mmol/L (22-32); Chloride 99 mmol/L (98-107); Estimated Glomerular Filt Rate > 60 mL/min (>60); Globulin 3.2 g/dL (1.7-4.1); Glucose 186 mg/dL (70-99); HEMOLYSIS 47 (0-50); Potassium 4.4 mmol/L (3.4-5.1); Sodium 139 mmol/L (137-145); Total Protein 7.7 g/dL (6.3-8.2)
[2025-03-11 11:19] LABS: NT-proBNP (BNP-Adult 18+) 757 pg/mL (<450); Troponin I < 0.012 ng/mL (0.01-0.034)
--- NOTE | 2025-03-11 13:03 | ED_ITS ---
HPI - SOB/Dyspnea General Chief Complaint: Shortness of Breath/Dyspnea Stated Complaint: SOB Time Seen by Provider: 03/11/25 12:48 History of Present Illness HPI Narrative: 84-year-old female with history of atrial fibrillation on chronic warfarin anticoagulation, hypertension, complains of shortness of breath for the last 2 days. Complains of 2 days duration dry cough. Fevers or chills. She believes that she has been taking all of her medications, denies missed doses of any medications, has been taking furosemide but not her morning dose prior to coming in. Some lower extremity swelling but not significantly increased over baseline. No unilateral leg pain or swelling symptoms. Denies fevers, chills, chest pain. Related Data Home Medications Medication Instructions Recorded Confirmed warfarin 7.5 mg tablet (Coumadin) 7.5 mg PO QDAY ##0 11/29/12 06/20/24 [COQ10] 100 mg PO DAILY ##0 02/12/17 03/01/23 calcium carbonate 650 mg PO PRN PRN Acid Reflux ##0 02/12/17 03/01/23 docusate sodium 100 mg capsule 100 mg PO BIDP PRN Constipation ##0 02/12/17 03/01/23 glucosamine 1 ea PO DAILY ##0 02/12/17 03/01/23 sulfate-methylsulfonylmethane 250 mg-250 mg capsule atorvastatin 20 mg tablet 20 mg PO DAILY 03/13/18 06/20/24 carvedilol 12.5 mg tablet 12.5 mg PO BID 03/13/18 06/20/24 benzonatate 100 mg capsule 100 mg PO TID PRN Cough 01/19/23 03/01/23 carboxymethylcellulose sodium 1 % 1 drp ophthalmic (eye) BID PRN Dry 01/19/23 03/01/23 eye liquid gel drops Eyes cholecalciferol (vitamin D3) 25 25 mcg PO DAILY 01/19/23 03/01/23 mcg (1,000 unit) tablet docusate sodium 100 mg capsule 300 mg PO BID 01/19/23 03/01/23 losartan 50 mg tablet 50 mg PO BID 01/19/23 06/20/24 omeprazole 20 mg PO DAILY 01/19/23 03/01/23 vitamins A,C,S-ctau-ywlskb 4,296 1 cap PO BID 01/19/23 03/01/23 mcg-226 mg-90 mg capsule (PreserVision AREDS) Previous Rx's Medication Instructions Recorded amlodipine 5 mg tablet (Norvasc) 5 mg PO DAILY #30 tabs 01/22/23 ondansetron 4 mg disintegrating 4 mg PO Q8H #20 tabs 01/22/23 tablet furosemide 20 mg tablet 20 mg PO DAILY #30 tabs 01/27/23 oxycodone 5 mg tablet 5 mg PO Q3H PRN Pain, Moderate 01/27/23 (4-6) #20 tabs prednisone 20 mg tablet See Rx Instructions .Route 01/27/23 .COMPLEX #7 tabs sennosides 8.6 mg tablet (senna) 8.6 mg PO BEDTIME #30 tabs 01/27/23 furosemide 20 mg tablet (Lasix) 20 mg PO DAILY #30 tabs 06/20/24 doxycycline hyclate 100 mg tablet 100 mg PO BID #20 tabs 03/11/25 Allergies Allergy/AdvReac Type Severity Reaction Status Date / Time No Known Drug Allergies Allergy Verified 06/20/24 14:24 Patient History Medical History Abdominal wall hernia Abnormal colonoscopy Adenomatous colon polyp Allergic rhinitis Atrial fibrillation Coronary atherosclerosis GERD (gastroesophageal reflux disease) Heart murmur Hiatal hernia 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 HEAD: Atraumatic. Normocephalic. EYES: Pupils equal round and reactive. Extraocular motions intact. No scleral icterus. No injection or drainage. ENT: Nose without bleeding, purulent drainage. Throat without erythema, tonsillar hypertrophy or exudate. Airway patent. NECK: Trachea midline. Non tender CARDIOVASCULAR: Irregularly irregular rhythm, rate not increased, without obvious murmur, gallops, or rubs. RESPIRATORY: Clear to auscultation. Breath sounds equal bilaterally. No wheezes, rales, or rhonchi. GASTROINTESTINAL: Abdomen soft, non-tender, nondistended. EXTREMITIES: No edema or joint tenderness. BACK: Nontender without deformity or crepitance. No flank tenderness. NEURO: AOx3. Motor functions grossly nonfocal SKIN: No rash or erythema of visible areas Initial Vital Signs Initial Vital Signs: Vital Signs Temperature 97.9 F 03/11/25 10:25 Pulse Rate 87 03/11/25 10:25 Respiratory Rate 16 03/11/25 10:25 Blood Pressure 204/88 H 03/11/25 10:25 Pulse Oximetry 92 03/11/25 10:25 Oxygen Delivery Method Room Air 03/11/25 10:25 Course Orders Ordered: Discontinued Medications Albuterol (Albuterol 2.5 Mg/3 Ml Neb (Adult)) 2.5 mg INH NOW ONE Stop: 03/11/25 12:50 Last Admin: 03/11/25 13:04 Dose: 2.5 mg Documented By: ALVARO Azithromycin (Azithromycin 250 Mg Tablet) 500 mg PO NOW ONE Stop: 03/11/25 12:49 Last Admin: 03/11/25 13:23 Dose: 500 mg Documented By: OCTAVIO Furosemide (Furosemide 40 Mg/4 Ml Vial) 40 mg IV NOW ONE Stop: 03/11/25 13:03 Last Admin: 03/11/25 13:16 Dose: 40 mg Documented By: OCTAVIO Vital Signs Vital signs: Vital Signs - 8 hr 03/11/25 10:25 03/11/25 10:34 03/11/25 10:35 Temperature 97.9 F Pulse Rate 87 77 Respiratory Rate 16 Blood Pressure 204/88 H Pulse Oximetry 92 96 97 Oxygen Delivery Method Room Air Oxygen Flow Rate Fraction of Inspired Oxygen 03/11/25 10:35 03/11/25 11:00 03/11/25 11:01 Temperature Pulse Rate 83 Respiratory Rate 33 H Blood Pressure 202/97 H 161/72 H Pulse Oximetry 97 Oxygen Delivery Method Room Air Oxygen Flow Rate Fraction of Inspired Oxygen 03/11/25 11:01 03/11/25 11:30 03/11/25 11:30 Temperature Pulse Rate 80 79 Respiratory Rate 33 H 30 H Blood Pressure 156/70 H Pulse Oximetry 97 97 Oxygen Delivery Method Oxygen Flow Rate Fraction of Inspired Oxygen 03/11/25 12:00 03/11/25 12:00 03/11/25 12:30 Temperature Pulse Rate 75 Respiratory Rate 26 H Blood Pressure 153/71 H 155/70 H Pulse Oximetry 97 Oxygen Delivery Method Oxygen Flow Rate Fraction of Inspired Oxygen 03/11/25 12:30 03/11/25 13:00 03/11/25 13:01 Temperature Pulse Rate 67 67 68 Respiratory Rate 29 H 32 H 33 H Blood Pressure Pulse Oximetry 97 98 97 Oxygen Delivery Method Oxygen Flow Rate Fraction of Inspired Oxygen 03/11/25 13:01 03/11/25 13:05 03/11/25 13:26 Temperature Pulse Rate 64 Respiratory Rate 18 Blood Pressure 150/69 H 151/72 H Pulse Oximetry 97 Oxygen Delivery Method Nasal Cannula Oxygen Flow Rate 1 Fraction of Inspired Oxygen 03/11/25 13:26 03/11/25 13:30 03/11/25 13:30 Temperature Pulse Rate 69 65 Respiratory Rate 25 H 24 Blood Pressure 154/66 H Pulse Oximetry 96 96 Oxygen Delivery Method Oxygen Flow Rate Fraction of Inspired Oxygen 03/11/25 13:41 03/11/25 13:41 03/11/25 14:00 Temperature Pulse Rate 67 63 Respiratory Rate 24 25 H Blood Pressure 154/70 H Pulse Oximetry 94 94 Oxygen Delivery Method Oxygen Flow Rate Fraction of Inspired Oxygen 03/11/25 14:00 03/11/25 14:30 03/11/25 14:30 Temperature Pulse Rate 61 Respiratory Rate 28 H Blood Pressure 139/63 128/65 Pulse Oximetry 95 Oxygen Delivery Method Nasal Cannula Oxygen Flow Rate 2 Fraction of Inspired Oxygen MDM - SOB/Dyspnea Lab Data Attestation: I reviewed the patient's lab results. Lab results narrative: White blood cell count 8300, hemoglobin 13.2, platelets adequate. BUN 22 with creatinine 0.45 noted. Glucose 186. Electrolytes unremarkable. Serum CO2 31. Liver functions unremarkable. BNP 700s and similar range to prior studies. Troponin negative. 03/11/25 10:45 03/11/25 10:45 Labs: Lab Results 03/11/25 03/11/25 03/11/25 Range/Units 10:45 14:43 14:54 WBC 8.3 (4.5-11.0) X10^3/uL RBC 4.48 (4.0-5.2) X10^6/uL Hgb 13.2 (12.0-16.0) g/dL Hct 40.2 (36-46) % MCV 89.7 (80-100) fL MCH 29.4 (26-34) PG MCHC 32.8 (30-36) % RDW 14.9 H (11.6-14.8) % Plt Count 202 (150-400) X10^3/uL Neut % (Auto) 79.6 H (50-75) % Lymph % (Auto) 10.8 L (25-40) % [place] % (Auto) 7.9 (3-14) % Eos % (Auto) 1.1 L (2-4) % Baso % (Auto) 0.6 (0-2) % Neut # (Auto) 6600 (9750-5397) /uL Lymph # (Auto) 900 L (4917-3593) /uL [place] # (Auto) 700 (0-900) /uL Eos # (Auto) 100 (0-450) /uL Baso # (Auto) 0 (0-100) /uL PT 31.0 H (9.4-12.5) SECONDS INR 2.8 H (0.9-1.3) Sodium 139 (137-145) mmol/L Potassium 4.4 (3.4-5.1) mmol/L Chloride 99 (98-107) mmol/L Carbon Dioxide 31 (22-32) mmol/L BUN 22 H (7-17) mg/dL Creatinine 0.45 L (0.52-1.04) mg/dL Estimated GFR > 60 (>60) mL/min BUN/Creatinine Ratio 48.9 H (6-22) Glucose 186 H (70-99) mg/dL Lactate 1.2 (0.7-2.1) mmol/L Calcium 9.0 (8.4-10.2) mg/dL Total Bilirubin 1.0 (0.2-1.3) mg/dL AST 29 (14-36) IU/L ALT 21 (<35) IU/L Alkaline Phosphatase 91 (38-126) U/L Troponin I < 0.012 0.017 (0.01-0.034) ng/mL NT-Pro-B Natriuret Pep 757 H (<450) pg/mL Total Protein 7.7 (6.3-8.2) g/dL Albumin 4.5 (3.5-5.0) g/dL Globulin 3.2 (1.7-4.1) g/dL Albumin/Globulin Ratio 1.4 (1.0-2.8) SARS-CoV-2 (PCR) Negative (Negative) Influenza A (RT-PCR) Flu a negative (NEGATIVE) Influenza B (RT-PCR) Flu b negative (NEGATIVE) RSV (PCR) Negative (Negative) Imaging Data Chest x-ray: Radiologist's Impression: [address] [address] XRay Report Signed Patient: Lenka Gonzalez MR#: [id number] : 1940 Acct:[id number] Age/Sex: 84 / F Date of Service: 03/11/25 Loc: ED Accession Number: [id number] Procedure: XR chest 1V Ordering Provider: Toby Rajput MD PROCEDURE: XR CHEST 1V INDICATIONS: Shortness of breath TECHNIQUE: One view of the chest was acquired. COMPARISON: [facility], CR, XR CHEST 1V, 06/20/2024, 14:30. [facility], CR, XR CHEST 2V, 02/07/2024, 13:41. FINDINGS AND IMPRESSION: Left chest wall pulse generator with cardiac electrode leads. Cardiomegaly. Diffusely prominent interstitium, likely edema versus atypical infection. No drainable pleural effusions. Degenerative osseous changes. Old right humeral deformity. Dictated by: Darinel Hui M.D. on 03/11/2025 at 10:56 Approved by: Darinel Hui M.D. on 03/11/2025 at 10:57 ECG Data Attestation: I personally reviewed and interpreted this ECG as follows: Interpretation: Atrial fibrillation with ventricular response rate 78, no obvious ST segment elevation or depression changes. QRS 86, QTC 424. MDM Narrative Medical decision making narrative: 84-year-old female with history of atrial fibrillation, chronic anticoagulation, congestive heart failure, on Lasix, has recent cough and shortness of breath. Slight increase in her lower extremity edema. She would not take her Lasix dose yet this morning. She is not usually on oxygen, had low sats, placed on 3 L oxygen per nasal cannula. Screening EKG shows atrial fibrillation with ventricular response rate 83. Electrolytes unremarkable. Renal function adequate. Normotensive. Chest x-ray shows interstitial edema versus atypical pneumonia. See radiology report. Blood cultures, oral azithromycin ordered. BNP 700s, similar to previous values, history of congestive heart failure, interstitial fluid on CXR suspected, IV Lasix dose. INR 2.8 on warfarin noted. We will discharge patient on doxycycline, might be less interactive than azithromycin with her chronic warfarin, for atypical pathogen coverage. Offered admission, she would like to go home. We will arrange home oxygen at 1- 2 liters/minute current supplementation, without oxygen she is 88-90%, on oxygen 91-96%. Home on oxgyen per patient preference. Arranged via RT. Home oxygen 1-lpm at rest, 2-lpm for ADL ambulation/activities. Advised increased dose of her home Lasix, one tablet to 1.5 tablets for the next week, while re-checking with her regular provider in clinic in close follow-up. Home with family. Return precautions discussed. Discharge Plan Departure Patient Disposition: Home Clinical Impression: Atypical pneumonia, Congestive heart failure, Hypoxia Activity Restrictions/Additional Instructions: Recent cough and shortness of breath. Chest x-ray suspicious for possible atypical pneumonia. Doxycycline antibiotic prescription sent to your pharmacy for 10 day course. Take antibiotics as prescribed. You might have some degree of fluid overload. IV Lasix given. Consider increased dose of your home Lasix from 1 tablet daily to 1-1/2 tablets daily for this next week, you stated that you had a supply. You had a slight oxygen requirement of 1 L, and 2 L when you were walking exerting yourself. We did discuss admission. You preferred to try to go home on home oxygen. Home oxygen was arranged through respiratory therapy services. Recheck your symptoms and your oxygenation with your regular doctor in the next couple of days. Return to this/nearest emergency department for any change worsening symptoms or any concerns prior. Prescriptions: New doxycycline hyclate 100 mg tablet 100 mg PO BID Qty: 20 0RF No Action atorvastatin 20 mg tablet 20 mg PO DAILY carvedilol 12.5 mg tablet 12.5 mg PO BID warfarin [Coumadin] 7.5 MG tablet 7.5 mg PO QDAY Qty: 0 Rx Instructions: 7.5 mg SUN, MON, WED, TUESDAY 5mg tues, thrus, sat calcium carbonate 650 MG tablet 650 mg PO PRN PRN (Reason: Acid Reflux) Qty: 0 docusate sodium 100 MG capsule 100 mg PO BIDP PRN (Reason: Constipation) Qty: 0 glucosamine sulfate-msm 1 EACH capsule 1 ea PO DAILY Qty: 0 [COQ10] 100 mg PO DAILY Qty: 0 sennosides [senna] 8.6 mg Tablet 8.6 mg PO BEDTIME Qty: 30 0RF prednisone 20 mg Tablet See Rx Instructions .ROUTE .COMPLEX Qty: 7 0RF Rx Instructions: 40 mg by mouth daily for 2 days then 20 mg by mouth daily for 2 days then 10mg by mouth daily for 2 days then stop furosemide 20 mg Tablet 20 mg PO DAILY Qty: 30 0RF oxycodone 5 mg Tablet 5 mg PO Q3H PRN (Reason: Pain, Moderate (4-6)) Qty: 20 0RF furosemide [Lasix] 20 mg tablet 20 mg PO DAILY Qty: 30 0RF omeprazole 20 mg PO DAILY Rx Instructions: daily 30 min prior to meals. benzonatate 100 mg Capsule 100 mg PO TID PRN (Reason: Cough) losartan 50 mg Tablet 50 mg PO BID carboxymethylcellulose sodium 1 % Drops, Liquid Gel 1 drp OPHTHALMIC (EYE) BID PRN (Reason: Dry Eyes) PreserVision AREDS 4,296 mcg-226 mg-90 mg Capsule 1 cap PO BID docusate sodium 100 mg Capsule 300 mg PO BID Rx Instructions: Take 3 caps twice a day. cholecalciferol (vitamin D3) 25 mcg (1,000 unit) Tablet 25 mcg PO DAILY amlodipine [Norvasc] 5 mg Tablet 5 mg PO DAILY Qty: 30 0RF ondansetron 4 mg tablet,disintegrating 4 mg PO Q8H Qty: 20 0RF Referrals: Temi Feliciano PA-C [Primary Care Provider] - Stand Alone Forms: Patient Portal/API/Survey
[2025-03-11] MEDS: ALBUTEROL 2.5 MG/3 ML NEB (ADULT) INH (13:04)
[2025-03-11] MEDS: FUROSEMIDE 40 MG/4 ML VIAL IV (13:16)
[2025-03-11] MEDS: AZITHROMYCIN 250 MG TABLET 500 MG PO (13:23)
--- NOTE | 2025-03-11 13:27 | PC.NURSE ---
Pt trialed off oxygen. Oxygen saturation at 89% on RA with pursued lip breathing. Pt placed back on oxygen at 2L via NC. Oxygen saturation quickly climbed to 96%. She is sitting upright and medicated per MAR. at bedside.
--- NOTE | 2025-03-11 14:59 | PC.NURSE ---
Pt trialed off oxygen again and her saturation drops to 88% on RA. She has intermittent pursued lip breathing. Provider Regulo at bedside and is aware. Pt placed back on 2L via NC and is at 97% on RA.
[2025-03-11 15:10] LABS: Troponin I 0.017 ng/mL (0.01-0.034)
[2025-03-11 15:36] LABS: Influenza A - CEPHEID Flu A NEGATIVE (NEGATIVE); Influenza B - CEPHEID Flu B NEGATIVE (NEGATIVE); Respiratory Syncytial Virus Negative (Negative)
[2025-03-11 15:38] LABS: COVID-19 CEPHEID 4-PLEX PCR Negative (Negative)
--- NOTE | 2025-03-11 16:32 | PC.NURSE ---
pt ambulated with RT and [employer], gait belt was used and cane from home.
== END 2025-03-11 17:35 | disposition home or self-care (01) ==
PROVIDERS: Emergency Provider Emergency Medicine; PCP Physician Assistant
DX: J18.9 Pneumonia, unspecified organism (principal); I50.9 Heart failure, unspecified; R09.02 Hypoxemia; R05.9 Cough, unspecified
CPT/HCPCS: 0241U; 36415; 71045; 80053; 83605; 83880; 84484; 85025; 85610; 87040; 93005; 94640; 96374; 99285; J1938; J7613

== ENCOUNTER 2025-07-26 09:54 | Inpatient (IN) | payer MEDICARE, OTHER, SELFPAY ==
[2023-01-24 16:39] VITALS: BMI 30.8
[2025-07-26] VITALS (21 sets, daily range): BP systolic 148–222; BP diastolic 68–106; PULSE 71–87; RESP 18–40; TEMP 35.9–37; O2SAT 95–98; BMI 33.0; BMI 31.8
--- NOTE | 2025-07-26 10:57 | ED.SOB ---
HPI - SOB/Dyspnea General Chief Complaint: Shortness of Breath/Dyspnea Stated Complaint: Difficulty breathing,uses 2L home O2 Time Seen by Provider: 07/26/25 10:49 Mode of arrival: EMS Limitations: no limitations History of Present Illness HPI Narrative: 85-year-old female who arrives by ambulance for dyspnea. Says that she woke up about 7:30 a.m. feeling short of breath. She did not have fevers she does not have chest pain she has a cough which is chronic and unchanged not productive. The patient is a nonsmoker. Says she does not have a history of lung disease although she does have home oxygen at 2 L that she uses as needed. She denies any history of congestive heart failure or coronary disease although she said she had a ?hole in her heart? repaired about 60 years ago. She also does have a pacemaker implant. Reportedly she required 4 L of oxygen EN route, and got 2 nebulized treatments and is now feeling much better. Related Data Home Medications ?Medication ?Instructions ?Recorded ?Confirmed warfarin 7.5 mg tablet (Coumadin) 7.5 mg PO QDAY ##0 11/29/12 07/26/25 calcium carbonate 650 mg PO PRN PRN Acid Reflux ##0 02/12/17 07/26/25 glucosamine 1 ea PO DAILY ##0 02/12/17 07/26/25 sulfate-methylsulfonylmethane 250 mg-250 mg capsule carvedilol 12.5 mg tablet 12.5 mg PO BID 03/13/18 07/26/25 carboxymethylcellulose sodium 1 % 1 drp ophthalmic (eye) .HS PRN Dry 01/19/23 07/26/25 eye liquid gel drops Eyes cholecalciferol (vitamin D3) 25 25 mcg PO DAILY 01/19/23 07/26/25 mcg (1,000 unit) tablet docusate sodium 100 mg capsule 300 mg PO BID 01/19/23 07/26/25 losartan 50 mg tablet 50 mg PO BID 01/19/23 07/26/25 omeprazole 20 mg PO DAILY 01/19/23 07/26/25 vitamins A,C,B-tcrv-zodnor 4,296 1 cap PO BID 01/19/23 07/26/25 mcg-226 mg-90 mg capsule (PreserVision AREDS) torsemide 20 mg tablet 20 mg PO DAILY 07/26/25 07/26/25 Previous Rx's ?Medication ?Instructions ?Recorded furosemide 20 mg tablet (Lasix) 20 mg PO DAILY #30 tabs 06/20/24 Allergies Allergy/AdvReac Type Severity Reaction Status Date / Time No Known Drug Allergies Allergy Verified 07/26/25 10:02 Patient History Medical History Abdominal wall hernia Abnormal colonoscopy Adenomatous colon polyp Allergic rhinitis Atrial fibrillation Coronary atherosclerosis GERD (gastroesophageal reflux disease) Heart murmur Hiatal hernia Hypercoagulability due to atrial fibrillation Hyperlipidemia Hypertension Incisional hernia Pacemaker Prediabetes Primary osteoarthritis Subclinical hyperthyroidism Surgical History H/O heart surgery History of tonsillectomy and adenoidectomy Hx of cholecystectomy Family History Mother No pertinent past medical history Father No pertinent past medical history Social History household members: spouse Smoking Status: Never smoker alcohol intake: never Smoking Status: Unknown if ever smoked alcohol intake frequency: holidays/special occasions only Exam Narrative Exam Narrative: Elderly female alert and oriented oxygen saturations are good on 2 L. she was noted to be hypertensive on triage vital signs this is much improved when I see her her respiratory rate is also well below 40 she is speaking in full sentences with no respiratory distress Unable to assess jugular venous distention due to body habitus Lungs have wheezes throughout no rales heard equal breath sounds speaking in full sentences Cardiac regular rhythm rate with a systolic murmur Abdomen is soft and nontender She is alert oriented moving all 4 extremities spontaneously and equally No pedal edema Initial Vital Signs Initial Vital Signs: Vital Signs Temperature 98.6 F 07/26/25 09:55 Pulse Rate 84 07/26/25 09:55 Respiratory Rate 40 H 07/26/25 09:55 Blood Pressure 219/106 H 07/26/25 09:55 Pulse Oximetry 98 07/26/25 09:55 Oxygen Delivery Method Room Air 07/26/25 09:55 Course Orders Ordered: ED Orders 07/26/25 09:55 Complete Blood Count AUTO DIFF Stat Comprehensive Metabolic Panel Stat D Dimer Stat NT-proBNP (BNP-Adult 18+) Stat Procalcitonin Stat Troponin I Stat 07/26/25 10:56 EKG-12 Lead Stat RT Consult Eval and Treat NOW 07/26/25 10:57 XR chest 1V Stat 07/26/25 11:40 Troponin I Stat 07/26/25 14:12 PT [Prothrombin Time INR] Stat Trop I [Troponin I] Stat Acetaminophen (Acetaminophen 325 Mg Tablet) 650 mg PO Q6H PRN PRN Reason: Fever/Mild Pain (1-3) Albuterol (Albuterol 2.5 Mg/3 Ml Neb (Adult)) 2.5 mg INH [id number] PRN PRN Reason: Shortness Of Breath Naloxone HCl (Naloxone 0.4 Mg/Ml Vial) 0.2 mg IV Q2MIN PRN PRN Reason: Opiate Reversal Ondansetron HCl (Ondansetron 4 Mg/2 Ml Inj) 4 mg IV Q8HR PRN PRN Reason: Nausea And Vomiting Discontinued Medications Aspirin (Aspirin Ec 81 Mg Tablet) 81 mg PO NOW ONE Stop: 07/26/25 13:37 Last Admin: 07/26/25 13:56 Dose: 81 mg Documented By: ADELA Carvedilol (Carvedilol 12.5 Mg Tablet) 12.5 mg PO NOW ONE Stop: 07/26/25 13:37 Last Admin: 07/26/25 14:02 Dose: 12.5 mg Documented By: ADELA Furosemide (Furosemide 40 Mg/4 Ml Vial) 20 mg IV NOW ONE Stop: 07/26/25 11:28 Last Admin: 07/26/25 11:41 Dose: 20 mg Documented By: ADELA Furosemide (Furosemide 40 Mg/4 Ml Vial) 40 mg IV NOW ONE Stop: 07/26/25 15:27 Nitroglycerin (Nitroglycerin Oint 1 Inch/Gm Oint...G.) 0.5 inch TOP NOW ONE Stop: 07/26/25 13:35 Last Admin: 07/26/25 13:55 Dose: 0.5 inch Documented By: ADELA Consultations Consultation #1: Discussed with hospitalist, Dr. Ruffin at 1:50 a.m., accepts admission Vital Signs Vital signs: Vital Signs - 8 hr 07/26/25 09:55 07/26/25 09:58 07/26/25 10:00 Temperature 98.6 F Pulse Rate 84 83 87 Respiratory Rate 40 H 40 H Blood Pressure 219/106 H Pulse Oximetry 98 98 98 Oxygen Delivery Method Room Air Nasal Cannula Oxygen Flow Rate 2 07/26/25 10:01 07/26/25 10:01 07/26/25 10:30 Temperature Pulse Rate 82 78 Respiratory Rate 39 H Blood Pressure 219/106 H Pulse Oximetry 98 97 Oxygen Delivery Method Oxygen Flow Rate 07/26/25 10:31 07/26/25 10:31 07/26/25 11:00 Temperature Pulse Rate 75 Respiratory Rate 26 H Blood Pressure 174/77 H 164/76 H Pulse Oximetry 97 Oxygen Delivery Method Oxygen Flow Rate 07/26/25 11:00 07/26/25 11:30 07/26/25 11:30 Temperature Pulse Rate 76 75 Respiratory Rate 26 H 26 H Blood Pressure 172/74 H Pulse Oximetry 96 97 Oxygen Delivery Method Oxygen Flow Rate 07/26/25 12:00 07/26/25 12:00 07/26/25 12:29 Temperature Pulse Rate 79 81 Respiratory Rate 26 H Blood Pressure 200/86 H Pulse Oximetry 97 96 Oxygen Delivery Method Nasal Cannula Oxygen Flow Rate 2 07/26/25 12:29 07/26/25 12:30 07/26/25 12:30 Temperature Pulse Rate 84 Respiratory Rate Blood Pressure 222/87 H 216/94 H Pulse Oximetry 96 Oxygen Delivery Method Oxygen Flow Rate 07/26/25 13:00 07/26/25 13:30 Temperature Pulse Rate 77 74 Respiratory Rate 20 Blood Pressure Pulse Oximetry 97 97 Oxygen Delivery Method Oxygen Flow Rate MDM - SOB/Dyspnea Lab Data Lab results narrative: Initial troponin is elevated, repeat troponin at 2:00 a.m. is positive. 07/26/25 09:55 07/26/25 09:55 Labs: Lab Results 07/26/25 07/26/25 Range/Units 09:55 11:40 WBC 8.7 (4.5-11.0) X10^3/uL RBC 4.28 (4.0-5.2) X10^6/uL Hgb 12.9 (12.0-16.0) g/dL Hct 39.0 (36-46) % MCV 91.1 (80-100) fL MCH 30.1 (26-34) PG MCHC 33.1 (30-36) % RDW 14.9 H (11.6-14.8) % Plt Count 225 (150-400) X10^3/uL Neut % (Auto) 78.7 H (50-75) % Lymph % (Auto) 11.2 L (25-40) % [place] % (Auto) 7.8 (3-14) % Eos % (Auto) 1.7 L (2-4) % Baso % (Auto) 0.6 (0-2) % Neut # (Auto) 6900 (9860-5099) /uL Lymph # (Auto) 1000 L (2114-6668) /uL [place] # (Auto) 700 (0-900) /uL Eos # (Auto) 200 (0-450) /uL Baso # (Auto) 0 (0-100) /uL D-Dimer 424 (<500) ng/ml Sodium 142 (137-145) mmol/L Potassium 4.7 (3.4-5.1) mmol/L Chloride 102 (98-107) mmol/L Carbon Dioxide 32 (22-32) mmol/L BUN 26 H (7-17) mg/dL Creatinine 0.58 (0.52-1.04) mg/dL Estimated GFR > 60 (>60) mL/min BUN/Creatinine Ratio 44.8 H (6-22) Glucose 192 H (70-99) mg/dL Calcium 9.1 (8.4-10.2) mg/dL Total Bilirubin 0.7 (0.2-1.3) mg/dL AST 35 (14-36) IU/L ALT 26 (<35) IU/L Alkaline Phosphatase 96 (38-126) U/L Troponin I 0.033 0.290 H* (0.01-0.034) ng/mL NT-Pro-B Natriuret Pep 1190 H (<450) pg/mL Total Protein 7.6 (6.3-8.2) g/dL Albumin 4.6 (3.5-5.0) g/dL Globulin 3.0 (1.7-4.1) g/dL Albumin/Globulin Ratio 1.5 (1.0-2.8) Procalcitonin 0.031 (<0.5) ng/mL Urine Dip Bedside Urine Glucose Negative Bedside Urine Bilirubin - Negative Bedside Urine Ketone - Negative Urine Specific [place] 1.010 Bedside Urine Occult Blood - Negative Bedside Urine pH 6.0 Bedside Urine Protein - Negative Bedside Urine Urobilinogen - Negative Bedside Urine Nitrite - Negative Bedside Urine Leukocytes - Negative Esterase Imaging Data Chest x-ray: My Impression: Independently reviewed chest x-ray, cardiomegaly, increased interstitial markings, no discrete infiltrate Radiologist's Impression: [address] [address] XRay Report Signed Patient: Lenka Gonzalez MR#: [id number] : 1940 Acct:[id number] Age/Sex: 85 / F Date of Service: 07/26/25 Loc: ED Accession Number: [id number] Procedure: XR chest 1V Ordering Provider: Masoud hSah MD PROCEDURE: XR CHEST 1V INDICATIONS: shortness of breath, dyspnea TECHNIQUE: One view of the chest was acquired. COMPARISON: [facility], CR, XR CHEST 1V, 03/11/2025, 10:31. FINDINGS: Moderate to severely enlarged cardiopericardial silhouette, cardiomegaly and/or pericardial effusion similar to the prior exam. Moderate to severely enlarged prominent erasmo, pulmonary vascular congestion and/or hilar lymph nodes mildly increased. Increased moderate bilateral diffuse predominantly perihilar and lower lobe peribronchial thickening with diffuse patchy opacities, more than expected for expiratory result and bronchopneumonia, pneumonia, viral infection, or other process should be considered. Single lead pacemaker with left-sided battery pack unchanged. Calcifications of the aortic arch unchanged. Bilateral apical pleural thickening/scarring and mild blunting of the costophrenic angles unchanged. No pneumothorax. IMPRESSION: Increased prominent erasmo, peribronchial thickening and patchy opacities as discussed above. CHF, and or pneumonia or other process should be considered. Follow-up is needed. If symptoms persist or worsen, CT chest could be performed. Dictated by: Phu Ramon M.D. on 07/26/2025 at 11:51 Approved by: Phu Ramon M.D. on 07/26/2025 at 11:54 ECG Data Attestation: I personally reviewed and interpreted this ECG as follows: (ECG shows atrial fibrillation at 80 possible old septal infarct no acute ST segment changes no significant change from baseline) MDM Narrative Medical decision making narrative: 85-year-old female with a history of atrial fibrillation and home oxygen use your although she says she does not have chronic lung disease. She is in today with an episode of shortness of breath. Symptoms have resolved. Did not have chest pain but does have dyspnea. Troponin nigel precipitously over her to our stay, indicating dot ST-elevation SC. symptom-free of the time she was seen. Also does have chest x-ray findings and elevated proBNP to suggest an element of heart failure. She was given furosemide nitroglycerin and low-dose aspirin. Patient is anticoagulated on warfarin so I did not start heparin. D-dimer was normal. She will be admitted to the hospitalist service. Discharge Plan Departure Patient Disposition: Admitted As Inpatient Clinical Impression: Acute non-ST elevation myocardial infarction (NSTEMI), Acute dyspnea Admit Date/Time: 07/26/25 13:49 Admit Provider: Robinson Ruffin
[2025-07-26 11:02] LABS: Add Manual Diff / Slide Review NO; Hematocrit 39.0 % (36-46); Hemoglobin 12.9 g/dL (12.0-16.0); Lymphocytes Absolute Auto 1000 /uL (1100-4500); Mean Corpuscular HGB Conc 33.1 % (30-36); Mean Corpuscular Hemoglobin 30.1 PG (26-34); Mean Corpuscular Volume 91.1 fL (80-100); Platelet Count 225 X10^3/uL (150-400)
[2025-07-26 11:10] LABS: Alanine Aminotransferase 26 IU/L (<35); Albumin 4.6 g/dL (3.5-5.0); Albumin Globulin Ratio 1.5 (1.0-2.8); Alkaline Phosphatase 96 U/L (38-126); Blood Urea Nitrogen 26 mg/dL (7-17); Calcium 9.1 mg/dL (8.4-10.2); Carbon Dioxide 32 mmol/L (22-32); Chloride 102 mmol/L (98-107); Estimated Glomerular Filt Rate > 60 mL/min (>60); Globulin 3.0 g/dL (1.7-4.1); Glucose 192 mg/dL (70-99); HEMOLYSIS 25 (0-50); Potassium 4.7 mmol/L (3.4-5.1); Sodium 142 mmol/L (137-145); Total Protein 7.6 g/dL (6.3-8.2)
--- NOTE | 2025-07-26 11:17 | EKG_ITS ---
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
[2025-07-26 11:21] LABS: NT-proBNP (BNP-Adult 18+) 1190 pg/mL (<450); Troponin I 0.033 ng/mL (0.01-0.034)
[2025-07-26 11:25] LABS: Procalcitonin 0.031 ng/mL (<0.5)
[2025-07-26] MEDS: FUROSEMIDE 40 MG/4 ML VIAL 20 MG IV (11:41)
[2025-07-26 12:40] LABS: Troponin I 0.290 ng/mL (0.01-0.034)
[2025-07-26] MEDS: NITROGLYCERIN OINT 1 INCH/GM OINT...G. 0.5 INCH TOP (13:55)
[2025-07-26] MEDS: ASPIRIN EC 81 MG TABLET PO (13:56)
[2025-07-26 14:35] LABS: INR 2.5 (0.9-1.3); Prothrombin Time 27.6 SECONDS (9.4-12.5)
[2025-07-26 14:59] LABS: Troponin I 0.820 ng/mL (0.01-0.034)
--- NOTE | 2025-07-26 15:18 | PC.NURSE ---
~LATE NOTE APPROX. 1500 LAB CALLED WITH CRITICAL TROP, INFORMATION RELAYED TO DR BARNEY
--- NOTE | 2025-07-26 15:23 | DI.ECHO.S_ITS ---
[place] [facility]---------+ [facility] : : [address] : [place] : : [id number] : : Phone: [phone] Echocardiogram Report + + :Name: CHANNING BECERRA Study Date: 07/26/2025 Height: 62 in : :[facility] ReadingLocation: Weight: 174 lb : : Gender: Female BSA: 1.8 m2 : :: 1940 Age: 85 yrs BP: 189/88 mmHg: :Reason For Study: NE : :Ordering Physician: ECTOR, : :DIANE Merchant Performed By: Samir Hardy : :Referring: DIANE BARNEY : + + Interpretation Summary The study quality was technically difficult. The ejection fraction is estimated to be 50-55%. Diastolic function could not be accurately assessed due to atrial fibrillation. The right ventricle is normal in size and function. There is marked biatrial enlargement. There is moderate mitral stenosis. There is mild aortic stenosis. There is moderate tricuspid regurgitation. The right ventricular systolic pressure is estimated to be at least 75 mmHg based on an estimated right atrial pressure of 15 mm Hg. There is a small pericardial effusion noted. There are no echocardiographic indications of cardiac tamponade. Compared to the prior study 01/26/2023, the ejection fraction has decreased, the mitral valve and aortic gradients have increased, the pulmonary artery systolic pressure has also increased and the pericardial effusion is now. Procedure: A two-dimensional transthoracic echocardiogram with color flow and Doppler was performed. Comparison is made with the echocardiogram of 01/26/2023. The study quality was technically difficult. The patient was in atrial fibrillation with heart rates between 68-93 bpm during the exam. Left Ventricle: The left ventricle is normal in size. Left ventricular wall thickness is mildly increased. There is no ventricular septal defect visualized. The ejection fraction is estimated to be 50-55%. Septal motion is consistent with conduction abnormality. Diastolic function could not be accurately assessed due to atrial fibrillation. Right Ventricle: The right ventricle is normal in size and function. There is a pacemaker lead in the right ventricle. Atria: There is marked biatrial enlargement. There is a septal occluding device. Mitral Valve: There is moderate mitral annular calcification. The mitral valve leaflets appear moderately thickened. The mitral valve leaflets are moderately calcified. Calcified mitral apparatus. The average mean mitral valve gradient is 10 mmHg. The average mitral valve area by pressure half-time is 3.1 cm2. There is moderate mitral stenosis. There is mild to moderate mitral regurgitation. Aortic Valve: The aortic valve is trileaflet. The aortic valve is mildly calcified. There is mild aortic stenosis. The peak aortic velocity is 2.6 m/sec. The aortic valve mean gradient is 14 mmHg. No aortic regurgitation is present. Tricuspid Valve: The tricuspid valve leaflets are thin and pliable. There is a valvular clip in the tricuspid position. There is moderate tricuspid regurgitation. The right ventricular systolic pressure is estimated to be at least 75 mmHg based on an estimated right atrial pressure of 15 mm Hg. Pulmonic Valve: The pulmonic valve leaflets are thin and pliable; valve motion is normal. There is no pulmonic valvular regurgitation. Great Vessels: The aortic root is normal size. The dimensions of the ascending aorta are normal. The pulmonary artery is not well visualized, but is probably normal size. The IVC is dilated (diameter is greater than 2.1 cm) and it collapses less than 50% with a sniff. This suggests a high right atrial pressure of 15 mm Hg. Pericardium/ Pleura There is a small pericardial effusion noted. There are no echocardiographic indications of cardiac tamponade. There is no pleural effusion. MMode/2D Measurements & Calculations LVIDd: 4.6 cm LVOT diam: 1.9 cm LVIDs: 3.6 cm Ao root diam: 3.1 cm FS: 21.9 % asc Aorta Diam: 3.6 cm EPSS: 1.2 cm IVSd: 1.2 cm LVPWd: 1.1 cm LV adams. diameter/BSA (cm/m^2): 2.5 LV sys. diameter/BSA (cm/m^2): 2.0 LA A2 area: 37.7 cm2 RA long axis: 6.7 cm LA A4 area: 47.6 cm2 RA area: 30.0 cm2 LA length (vol): 8.5 cm RA vol: 114.2 ml LA vol: 178.0 ml RA : 63.4 ml/m2 LA vol index: 98.7 ml/m2 IVC diam: 2.4 cm RVD1 (basal): 3.9 cm RVD2 (mid): 2.8 cm TAPSE: 1.6 cm Doppler Measurements & Calculations Ao V2 max: 258.0 cm/sec LVOT Max Syed: 99.6 cm/sec Ao V2 mean: 178.8 cm/sec LV V1 max P.0 mmHg Ao max P.6 mmHg LV V1 VTI: 20.6 cm Ao mean P.2 mmHg KAREN(I,D): 1.0 cm2 Ao V2 VTI: 57.2 cm KAREN(V,D): 1.1 cm2 sev ratio: 0.36 KAREN indexed to BSA (cm^2/m^2): 0.58 MV E max syed: 212.6 cm/sec TR max syed: 416.1 cm/sec MV A max syed: 59.4 cm/sec TR max P.6 mmHg MV E/A: 3.6 PA V2 max: 148.3 cm/sec Med Peak E' Syed: 7.4 cm/sec PA V2 mean: 104.1 cm/sec E/E' med: 28.6 PA mean P.7 mmHg Lat Peak E' Syed: 4.0 cm/sec PA pr(Accel): 63.6 mmHg E/E' lat: 53.1 E/e' average: 40.9 MV dec time: 0.20 sec MVA(VTI): 1.5 cm2 MV V2 mean: 171.2 cm/sec SV(LVOT): 60.0 ml MV mean P.3 mmHg MV V2 VTI: 40.4 cm Reading Physician:05:21 PM
--- NOTE | 2025-07-26 15:35 | PM.HP.1 ---
History of Present Illness History of Present Illness Date Patient Seen: 07/26/25 Time Patient Seen: 15:00 Chief complaint: Difficulty breathing,uses 2L home O2 Narrative: She was an 85-year-old female with a history of atrial fibrillation on chronic warfarin. She presents with the acute dyspnea. In the ED she was found to have evidence of tachypnea and a chest x-ray revealed pulmonary edema. She denied any chest pain. In the ED or troponins were elevated. She was on warfarin, she was given aspirin and Lasix IV, 20 mg. She was then transferred to the floor where she remained tachypneic and somewhat uncomfortable on 2 L of oxygen with SaO2 of 97%. She was followed by Dr. Montgomery but has no known history of CAD or stenting. 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 She denies leg edema or orthopnea. No recent fevers, cough, or URI symptoms. Her ECG is notable for septal Q-waves, and no ST segment elevations or depressions. [facility] Medical History Subclinical hyperthyroidism Hiatal hernia Heart murmur Adenomatous colon polyp Abnormal colonoscopy Coronary atherosclerosis Hypercoagulability due to atrial fibrillation Primary osteoarthritis Incisional hernia GERD (gastroesophageal reflux disease) Allergic rhinitis Prediabetes Abdominal wall hernia Hyperlipidemia Hypertension Pacemaker Atrial fibrillation Surgical History H/O heart surgery Hx of cholecystectomy History of tonsillectomy and adenoidectomy Family History Mother No pertinent past medical history Father No pertinent past medical history Social History household members: spouse Smoking Status: Never smoker alcohol intake: never Meds Home Medications and Allergies Home Medications ?Medication ?Instructions ?Recorded ?Confirmed ?Type warfarin 7.5 mg tablet (Coumadin) 7.5 mg PO QDAY ##0 11/29/12 07/26/25 History calcium carbonate 650 mg PO PRN PRN Acid Reflux ##0 02/12/17 07/26/25 History glucosamine 1 ea PO DAILY ##0 02/12/17 07/26/25 History sulfate-methylsulfonylmethane 250 mg-250 mg capsule carvedilol 12.5 mg tablet 12.5 mg PO BID 03/13/18 07/26/25 History carboxymethylcellulose sodium 1 % 1 drp ophthalmic (eye) .HS PRN Dry 01/19/23 07/26/25 History eye liquid gel drops Eyes cholecalciferol (vitamin D3) 25 25 mcg PO DAILY 01/19/23 07/26/25 History mcg (1,000 unit) tablet docusate sodium 100 mg capsule 300 mg PO BID 01/19/23 07/26/25 History losartan 50 mg tablet 50 mg PO BID 01/19/23 07/26/25 History omeprazole 20 mg PO DAILY 01/19/23 07/26/25 History vitamins A,C,T-mtee-osbgiy 4,296 1 cap PO BID 01/19/23 07/26/25 History mcg-226 mg-90 mg capsule (PreserVision AREDS) furosemide 20 mg tablet (Lasix) 20 mg PO DAILY #30 tabs 06/20/24 07/26/25 Rx torsemide 20 mg tablet 20 mg PO DAILY 07/26/25 07/26/25 History Allergies Allergy/AdvReac Type Severity Reaction Status Date / Time No Known Drug Allergies Allergy Verified 07/26/25 10:02 Review of Systems Review of Systems Narrative: All else reviewed and otherwise unremarkable except as noted in the history and physical. Exam Vital Signs (past 8 hours): - 07/26/25 09:55 07/26/25 09:58 07/26/25 10:00 Temperature 98.6 F Pulse Rate 84 83 87 Respiratory Rate 40 H 40 H Blood Pressure 219/106 H Pulse Oximetry 98 98 98 Oxygen Delivery Method Room Air Nasal Cannula Oxygen Flow Rate 2 07/26/25 10:01 07/26/25 10:01 07/26/25 10:30 Temperature Pulse Rate 82 78 Respiratory Rate 39 H Blood Pressure 219/106 H Pulse Oximetry 98 97 Oxygen Delivery Method Oxygen Flow Rate 07/26/25 10:31 07/26/25 10:31 07/26/25 11:00 Temperature Pulse Rate 75 Respiratory Rate 26 H Blood Pressure 174/77 H 164/76 H Pulse Oximetry 97 Oxygen Delivery Method Oxygen Flow Rate 07/26/25 11:00 07/26/25 11:30 07/26/25 11:30 Temperature Pulse Rate 76 75 Respiratory Rate 26 H 26 H Blood Pressure 172/74 H Pulse Oximetry 96 97 Oxygen Delivery Method Oxygen Flow Rate 07/26/25 12:00 07/26/25 12:00 07/26/25 12:29 Temperature Pulse Rate 79 81 Respiratory Rate 26 H Blood Pressure 200/86 H Pulse Oximetry 97 96 Oxygen Delivery Method Nasal Cannula Oxygen Flow Rate 2 07/26/25 12:29 07/26/25 12:30 07/26/25 12:30 Temperature Pulse Rate 84 Respiratory Rate Blood Pressure 222/87 H 216/94 H Pulse Oximetry 96 Oxygen Delivery Method Oxygen Flow Rate 07/26/25 13:00 07/26/25 13:30 07/26/25 13:55 Temperature Pulse Rate 77 74 74 Respiratory Rate 20 Blood Pressure Pulse Oximetry 97 97 Oxygen Delivery Method Oxygen Flow Rate 07/26/25 13:56 07/26/25 13:56 07/26/25 14:00 Temperature Pulse Rate 80 79 Respiratory Rate Blood Pressure 202/87 H Pulse Oximetry 96 97 Oxygen Delivery Method Nasal Cannula Oxygen Flow Rate 2 07/26/25 14:02 Temperature Pulse Rate 74 Respiratory Rate Blood Pressure 202/87 H Pulse Oximetry Oxygen Delivery Method Oxygen Flow Rate Oxygen Delivery Method Nasal Cannula Oxygen Flow Rate 2 Narrative Exam Narrative: NAD, alert and oriented, fluent speech, mildly anxious with oxygen on. She has a SaO2 of 97% in his tachypneic. Normocephalic skull, EOMI, anicteric sclera, symmetric pupils. Oropharynx unremarkable, no droop. Neck supple, midline trachea, no adenopathy. Lungs with diminished breath sounds in the bases, increased effort and rate. Heart regular, no murmur gallop or rub. Abdomen is soft, non distended and non tender. Extremities are free of edema. Skin is free of rash or lesions. Joints are not swollen or deformed. Judgment appears to be normal. Objective ECG Impression: Intervals [place] Rate: 78 P: [place]: QRS: 90 QRSD: 86 T: -29 QT: 372 QTc: 424 Interpretive Statements Atrial fibrillation Rightward axis Nonspecific ST and T wave abnormality Imaging Chest x-ray: Radiologist's impression: Pulmonary edema. Labs 07/26/25 09:55 07/26/25 09:55 Labs: Laboratory Results - last 24 hr 07/26/25 07/26/25 07/26/25 09:55 11:40 14:12 WBC 8.7 RBC 4.28 Hgb 12.9 Hct 39.0 MCV 91.1 MCH 30.1 MCHC 33.1 RDW 14.9 H Plt Count 225 Neut % (Auto) 78.7 H Lymph % (Auto) 11.2 L [place] % (Auto) 7.8 Eos % (Auto) 1.7 L Baso % (Auto) 0.6 Neut # (Auto) 6900 Lymph # (Auto) 1000 L [place] # (Auto) 700 Eos # (Auto) 200 Baso # (Auto) 0 PT 27.6 H INR 2.5 H D-Dimer 424 Sodium 142 Potassium 4.7 Chloride 102 Carbon Dioxide 32 BUN 26 H Creatinine 0.58 Estimated GFR > 60 BUN/Creatinine Ratio 44.8 H Glucose 192 H Calcium 9.1 Total Bilirubin 0.7 AST 35 ALT 26 Alkaline Phosphatase 96 Troponin I 0.033 0.290 H* 0.820 H* NT-Pro-B Natriuret Pep 1190 H Total Protein 7.6 Albumin 4.6 Globulin 3.0 Albumin/Globulin Ratio 1.5 Procalcitonin 0.031 Assessment & Plan Assessment & Plan narrative: 1. NSTEMI, active. 2. Pulmonary edema secondary to heart failure of unknown type, active. 3. Atrial fibrillation on chronic warfarin and carvedilol. 4. PPM. 5. Hypertension, active. 6. Hyperlipidemia, active. 7. Distant SBO. PLAN: -dual antiplatelet therapy, we will forego a Plavix load given her warfarin use. -continue carvedilol. -increase push dose of Lasix to 40 IV now. -continue nitro paste, started in ED. -stat echo to assess for wall motion abnormalities and LV EF. I did ask her about resuscitation status and she was a was unable to really answer this. She default to full resuscitation. With regard to level of care, she generally prefers simple, noninvasive measures. She was in [place], or is proxy decision maker. He was with her today. Time-Based Coding :: 35 min spent with patient and on the chart (including review of chart, obtaining history, exam, reviewing outside data, placing orders, documenting exam and treatment plan, and counseling patient) on 07/26. Quality VTE Deep Vein Thrombosis/Pulmonary Embolism Present on Admission: No MIPS - Admit I confirm the patient?s Advance Care Plan is present, Code status is documented, Surrogate decision maker is in patient?s record [If Yes, STOP here]: Yes [facility] - Meds 'Current medications' to include all prescriptions, [id number] products, herbals, cannabis/cannabidiol products, and vitamin/mineral/dietary (nutritional) supplements. I have utilized all available resources to obtain, update, or review the patient?s current medications. [If Yes, STOP here]: Yes
[2025-07-26] MEDS: FUROSEMIDE 40 MG/4 ML VIAL IV (16:15)
--- NOTE | 2025-07-26 16:25 | PC.NURSE ---
Pt arrived from ED at 1455, assisted into bed from stretcher via slide board. A&Ox4, hypertensive but otherwise VSS on 2 L NC. Pt c/o SOB when flat/with exertion but seems to be experiencing increased work of breathing just sitting in the bed. Lung sounds diminished. CMS+ bilaterally throughout, bowel sounds present. tele placed and reading NSR w/BBB. Pt and spouse oriented to room and call light. Bed in low position, call light within reach, bed alarm activated.
[2025-07-26 18:48] LABS: Troponin I 0.692 ng/mL (0.01-0.034)
[2025-07-26] MEDS: WARFARIN 2.5 MG TABLET 7.5 MG PO (19:07)
[2025-07-26] MEDS: LOSARTAN 50 MG TABLET PO (20:37)
[2025-07-26] MEDS: ACETAMINOPHEN 325 MG TABLET 650 MG PO (23:38)
[2025-07-27] VITALS: PULSE 74; RESP 20; O2SAT 97
[2025-07-27 04:00] VITALS: BP 125/64; PULSE 67; RESP 18; TEMP 36.4; O2SAT 97
[2025-07-27 06:52] LABS: Add Manual Diff / Slide Review NO; Hematocrit 35.2 % (36-46); Hemoglobin 11.7 g/dL (12.0-16.0); Lymphocytes Absolute Auto 900 /uL (1100-4500); Mean Corpuscular HGB Conc 33.2 % (30-36); Mean Corpuscular Hemoglobin 30.0 PG (26-34); Mean Corpuscular Volume 90.2 fL (80-100); Platelet Count 194 X10^3/uL (150-400)
[2025-07-27 07:00] LABS: INR 2.8 (0.9-1.3); Prothrombin Time 31.1 SECONDS (9.4-12.5)
[2025-07-27 07:04] LABS: Blood Urea Nitrogen 23 mg/dL (7-17); Calcium 8.7 mg/dL (8.4-10.2); Carbon Dioxide 33 mmol/L (22-32); Chloride 99 mmol/L (98-107); Estimated Glomerular Filt Rate > 60 mL/min (>60); Glucose 156 mg/dL (70-99); HEMOLYSIS < 15 (0-50); Potassium 4.0 mmol/L (3.4-5.1); Sodium 139 mmol/L (137-145)
[2025-07-27 08:00] VITALS: BP 135/65; PULSE 67; RESP 16; TEMP 36.6; O2SAT 97
[2025-07-27] MEDS: CLOPIDOGREL 75 MG TABLET PO (09:09)
[2025-07-27] MEDS: LOSARTAN 50 MG TABLET PO (09:10)
[2025-07-27 12:00] VITALS: BP 123/58; PULSE 60; RESP 17; TEMP 36.4; O2SAT 97
--- NOTE | 2025-07-27 13:54 | PC.NURSE ---
Patient discharged to home, to drive her home.
--- NOTE | 2025-07-27 15:10 | CM.DANOTE ---
B DCP Assessment note pt is an 85yo F admitted with NSTEMI. 2ltrs O2 baseline. cane at baseline. DIE DEVELOPER reviewed EMR. per chart, lives indep with spouse in [place]. hx of SV in 2022. per provider in morning rounds, potential dc later today. pt left with spouse prior to being seen by this DIE DEVELOPER. P: dc today home with spouse and OP f/u later this week. no CM needs at this time. EVERETT Nagy Discharge Planning/Care Management CM Discharge Assessment Start: 07/26/25 14:09 Freq: Status: Discharge Protocol: Document 07/27/25 15:09 (Rec: 07/27/25 15:10 [id number]) Discharge Planning Assessment Assigned Discharge EVERETT Fernandez [employer] Inspector Provider Temi Feliciano Insurance Medicare DPOA/Assigned gonzales Callahan Designee Name Contact Information [phone] Advance Directives? No Advance Directives No on File History Provided By Patient,Medical Record Prior Living House Arrangements Household Members spouse Independent with ADL Yes 's Is patient alert and Yes oriented? Comment Patient endorses she uses a cane when walking outside Barriers to No Discharge Discharge Plan Home Transportation family in POV Arrangement Review Status In Process Please Provide Date 07/27/25 Initial DC Assessment Was Performed Next Review Type Continued Stay Review
--- NOTE | 2025-07-27 19:36 | PM.DS.1 ---
History of Present Illness History of Present Illness Chief complaint: Difficulty breathing,uses 2L home O2 Narrative: Per H&P: She was an 85-year-old female with a history of atrial fibrillation on chronic warfarin. She presents with the acute dyspnea. In the ED she was found to have evidence of tachypnea and a chest x-ray revealed pulmonary edema. She denied any chest pain. In the ED or troponins were elevated. She was on warfarin, she was given aspirin and Lasix IV, 20 mg. She was then transferred to the floor where she remained tachypneic and somewhat uncomfortable on 2 L of oxygen with SaO2 of 97%. She was followed by Dr. Montgomery but has no known history of CAD or stenting. 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 She denies leg edema or orthopnea. No recent fevers, cough, or URI symptoms. Her ECG is notable for septal Q-waves, and no ST segment elevations or depressions. Discharge Providers Provider Date of admission: 07/26/25 13:49 Discharge Date: 07/27/25 Primary care physician: Temi Feliciano PA-C Discharge provider: Nita Tobar MD Summary Hospital Course Discharge Diagnosis: 1. NSTEMI 2. Pulmonary edema secondary to heart failure of unknown type 3. AFib on chronic warfarin 4. Hypertension 5. Hyperlipidemia 6. Distant small-bowel obstruction Hospital Course: Patient presented to the emergency department with acute onset of shortness of breath. She presented to the ED with tachypnea and a chest x-ray which revealed pulmonary edema. She denied chest pain but was found to have elevated troponin. Her initial troponin was 0.033. Follow-up was 0.29 and peaked at 0.82. Is subsequently began coming down by the afternoon of admission at 0.692. An echocardiogram was done during the hospitalization which revealed an ejection fraction of 50-55% which was mildly reduced compared to the prior study from May of 2024. The right ventricle was normal in size and function. There is marked biatrial enlargement. Moderate mitral stenosis. Mild aortic stenosis. Neither of these were noted on the previous echocardiogram. There was moderate tricuspid regurgitation which was previously noted to be [id number]. Furthermore, the RVSP was noted to be at least 75 mm of Hg, it was previously noted to be moderate in nature. She was given diuresis which improved her shortness of breath. On the morning of discharge, she was requesting to go home and reported her symptoms had fully resolved. She was able to get up and ambulate without difficulty. She noted she has a follow-up appointment with Dr. Montgomery, her outpatient food safety scientist, within 1 week's time. Patient is discharged in stable condition. Status at Discharge Cognitive/behavioral status at discharge: at baseline, oriented Overall status at discharge: patient is back to baseline Time Spent with Patient Time spent: Greater than 30 minutes Exam Vital Signs (past 8 hours): - 07/27/25 12:00 Temperature 97.5 F L Pulse Rate 60 Respiratory Rate 17 Blood Pressure 123/58 L Pulse Oximetry 97 Oxygen Flow Rate 2 Oxygen Delivery Method Nasal Cannula Oxygen Flow Rate 2 Narrative Exam Narrative: GEN: Very pleasant elderly female, Alert and oriented x 3, NAD HEENT:NC, Face symmetric CHEST: Respiratory excursions symmetric, mild crackles in the bases, otherwise CTAB CV: RRR, 3/6 systolic murmur heard best at the left sternal border, no R/G ABD: Soft, NT/ND, BT present in all 4 quadrants, no organomegaly or masses EXTR: warm, well perfused, no C/C/E SKIN: warm and dry, no rash NEURO: Alert and oriented x 3, nonfocal Objective Labs 07/27/25 06:28 07/27/25 06:28 Labs: Laboratory Results - last 24 hr 07/27/25 06:28 WBC 7.2 RBC 3.90 L Hgb 11.7 L Hct 35.2 L MCV 90.2 MCH 30.0 MCHC 33.2 RDW 14.6 Plt Count 194 Neut % (Auto) 74.5 Lymph % (Auto) 12.6 L [place] % (Auto) 9.8 Eos % (Auto) 2.1 Baso % (Auto) 1.0 Neut # (Auto) 5400 Lymph # (Auto) 900 L [place] # (Auto) 700 Eos # (Auto) 200 Baso # (Auto) 100 PT 31.1 H INR 2.8 H Sodium 139 Potassium 4.0 Chloride 99 Carbon Dioxide 33 H BUN 23 H Creatinine 0.64 Estimated GFR > 60 BUN/Creatinine Ratio 35.9 H Glucose 156 H Calcium 8.7 PFSH Medical History Subclinical hyperthyroidism Hiatal hernia Heart murmur Adenomatous colon polyp Abnormal colonoscopy Coronary atherosclerosis Hypercoagulability due to atrial fibrillation Primary osteoarthritis Incisional hernia GERD (gastroesophageal reflux disease) Allergic rhinitis Prediabetes Abdominal wall hernia Hyperlipidemia Hypertension Pacemaker Atrial fibrillation Surgical History H/O heart surgery Hx of cholecystectomy History of tonsillectomy and adenoidectomy Family History Mother No pertinent past medical history Father No pertinent past medical history Social History household members: spouse Smoking Status: Never smoker alcohol intake: never Discharge Plan Discharge Plan Patient Disposition: Home Provider Discharge Comment: You were admitted with pulmonary edema (fluid in the lungs), which was treated with extra diuretics as well as an elevated troponin (heart enzyme), concerning for injury to your heart. Your echocardiogram did not show evidence of injury to the heart. However, it does show progression of valve disease and increased pulmonary hypertension. You are seeing Dr. Montgomery next week and should review the results of the echocardiogram with him. Continue getting your pro times as per usual schedule. Your INR here was therapeutic at 2.8 this morning. You were initiated on clopidogrel (Plavix) which in combination with warfarin can increase your risk for bleeding. Please monitor your stools and if you notice any black or tarry stools or blood or clots, come to the emergency department right away. Review the need for this medication with Dr. Montgomery. Additionally, omeprazole is not compatible with clopidogrel. Therefore your being given a new prescription for your acid reflux so you can continue to treat your acid reflux. Return to the ED: Increased shortness of breath/chest pain. Palpitations/chest tightness. Inability to hold down food/fluids/medications. Fevers/chills. Discharge orders & Medications Prescriptions: New clopidogrel 75 mg Tablet 75 mg PO DAILY 30 Days Qty: 30 0RF pantoprazole 40 mg tablet,delayed release (DR/EC) 40 mg PO DAILY Qty: 30 0RF Continued carvedilol 12.5 mg tablet 12.5 mg PO BID warfarin [Coumadin] 7.5 MG tablet 7.5 mg PO QDAY Qty: 0 Rx Instructions: 7.5 mg MON, WED, TUESDAY 5mg tues, thrus, sat sun calcium carbonate 650 MG tablet 650 mg PO PRN PRN (Reason: Acid Reflux) Qty: 0 glucosamine sulfate-msm 1 EACH capsule 1 ea PO DAILY Qty: 0 furosemide [Lasix] 20 mg tablet 20 mg PO DAILY Qty: 30 0RF losartan 50 mg Tablet 50 mg PO BID carboxymethylcellulose sodium 1 % Drops, Liquid Gel 1 drp OPHTHALMIC (EYE) .HS PRN (Reason: Dry Eyes) PreserVision AREDS 4,296 mcg-226 mg-90 mg Capsule 1 cap PO BID docusate sodium 100 mg Capsule 300 mg PO BID Rx Instructions: Take 3 caps twice a day. cholecalciferol (vitamin D3) 25 mcg (1,000 unit) Tablet 25 mcg PO DAILY Discontinued omeprazole 20 mg PO DAILY Rx Instructions: daily 30 min prior to meals. torsemide 20 mg tablet 20 mg PO DAILY Follow up/Referrals: Temi Feliciano PA-C [Primary Care Provider, Medical] Discharge Health Status Multidrug resistant organism: No MDRO Diet/Activity/Treatments Diet: Diet as Tolerated and Regular Activity: As tolerated Oxygen: N/A Visit Report/Discharge Packet Instructions: Heart Attack, DI for Heart Failure, Clopidogrel, Pantoprazole Stand Alone Forms: Patient Portal/API, Stroke Signs & Symptoms Discharge Data Primary Care Provider: Temi Feliciano Quality VTE Deep Vein Thrombosis/Pulmonary Embolism Present on Admission: No
== END 2025-07-27 14:06 | disposition home or self-care (01) | DRG 281 ==
LOC: ED 13:49 → AC 13:50
PROVIDERS: Admitting Provider Hospitalist; Emergency Provider Emergency Medicine; PCP Physician Assistant; Referring Provider Emergency Medicine; Visit Provider Hospitalist
DX: I21.4 Non-ST elevation (NSTEMI) myocardial infarction (principal); I50.20 Unspecified systolic (congestive) heart failure; I48.91 Unspecified atrial fibrillation; I11.0 Hypertensive heart disease with heart failure; E78.5 Hyperlipidemia, unspecified; I35.0 Nonrheumatic aortic (valve) stenosis; I05.0 Rheumatic mitral stenosis; K21.9 Gastro-esophageal reflux disease without esophagitis; Z98.890 Other specified postprocedural states; Z79.01 Long term (current) use of anticoagulants; Z87.74 Personal history of (corrected) congenital malformations of heart and circulatory system; Z95.0 Presence of cardiac pacemaker; Z87.19 Personal history of other diseases of the digestive system
CPT/HCPCS: 36415; 71045; 80048; 80053; 81003; 83880; 84145; 84484; 85025; 85379; 85610; 93005; 93306; 96374; 99284; 99285; A9270; J1938

== ENCOUNTER 2025-07-31 10:50 | Observation (INO) | payer MEDICARE, OTHER, SELFPAY ==
[2025-07-26 14:41] VITALS: BMI 31.8
[2025-07-31] VITALS (16 sets, daily range): BP systolic 136–173; BP diastolic 70–87; PULSE 68–94; RESP 16–40; TEMP 31–37.1; O2SAT 92–98; BMI 31.8
--- NOTE | 2025-07-31 11:01 | DI.RAD.S_ITS ---
PROCEDURE: XR CHEST 1V INDICATIONS: shortness of breath, dyspnea TECHNIQUE: One view of the chest was acquired. COMPARISON: [facility], CR, XR CHEST 1V, 07/26/2025, 10:57. FINDINGS: Surgical changes and devices: Pacemaker Lungs and pleura: Progressive pulmonary findings suggesting progressive pulmonary edema. Mediastinum: Mediastinal contours appear normal. Heart size is enlarged. Bones and chest wall: No suspicious bony lesions. Overlying soft tissues appear unremarkable. IMPRESSION: Worsening congestive heart failure. Dictated by: En Nunez M.D. on 07/31/2025 at 12:28 Approved by: En Nunez M.D. on 07/31/2025 at 12:29
[2025-07-31 11:06] LABS: Add Manual Diff / Slide Review NO; Hematocrit 39.1 % (36-46); Hemoglobin 13.1 g/dL (12.0-16.0); Lymphocytes Absolute Auto 1000 /uL (1100-4500); Mean Corpuscular HGB Conc 33.5 % (30-36); Mean Corpuscular Hemoglobin 30.2 PG (26-34); Mean Corpuscular Volume 90.1 fL (80-100); Platelet Count 232 X10^3/uL (150-400)
--- NOTE | 2025-07-31 11:07 | EKG_ITS ---
[facility] [address] [place] [address] Test Date: 2025-07-31 Pat Name: Lenka Gonzalez Department: [facility] Room: Gender: Female [employer] Covering: : 1940 Requested By: Order Number: [id number] Reading MD: Leon Koenig MD Measurements Intervals [place] Rate: 83 P: [place]: QRS: 94 QRSD: 78 T: 0 QT: 380 QTc: 446 Interpretive Statements Atrial fibrillation Rightward axis Low voltage QRS Septal infarct , age undetermined Electronically Signed On 08-01-2025 7:19:16 PDT by Leon Koenig MD
[2025-07-31 11:10] LABS: INR 2.4 (0.9-1.3); Prothrombin Time 27.0 SECONDS (9.4-12.5)
--- NOTE | 2025-07-31 11:11 | ED_ITS ---
HPI - SOB/Dyspnea General Chief Complaint: Shortness of Breath/Dyspnea Stated Complaint: SOB Time Seen by Provider: 07/31/25 10:52 History of Present Illness HPI Narrative: Patient is a an 85-year-old female history of atrial fibrillation on chronic warfarin, congestive heart failure presenting to day with sudden onset shortness of breath. She was actually seen and admitted here July 26 through the . She is on chronic home O2. However this morning suddenly she got more short of breath. EMS was called found that she was in acute respiratory distress put her on BiPAP. She did improve with some breathing treatments and BiPAP. She is not having any chest pain denies fever chills or cough. She was never hypoxic and even in the ED taken off BiPAP she is not hypoxic but still quite tight and having respiratory distress. She actually received some sublingual nitroglycerin as well from EMS Related Data Home Medications ?Medication ?Instructions ?Recorded ?Confirmed warfarin 7.5 mg tablet (Coumadin) 7.5 mg PO QDAY ##0 0 11/29/12 07/26/25 calcium carbonate 650 mg PO PRN PRN Acid Reflu x ##0 02/12/17 07/26/25 carvedilol 12.5 mg tablet 12.5 mg PO BID 03/13/1807/17 carboxymethylcellulose sodium 1 % 1 drp ophthalmic (ey e) .HS PRN Dry 01/19/23 07/26/25 eye liquid gel drops Eyes docusate sodium 100 mg capsule 300 mg PO BID 01/19/23 07/26/25 losartan 50 mg tablet 50 mg PO BID 01/19/23 Previous Rx's ?Medication ?Instructions ?Recorded clopidogrel 75 mg tablet 75 mg PO DAILY 30 days #30 t abs 07/27/25 pantoprazole 40 mg tablet,delayed 40 mg PO DAILY #30 t abs 07/27/25 release Allergies Allergy/AdvReac Type Severity Reaction Status Date / Time No Known Drug Allergies Allergy Verified 07/31/25 10:51 Patient History Medical History Subclinical hyperthyroidism Hiatal hernia Heart murmur Adenomatous colon polyp Abnormal colonoscopy Coronary atherosclerosis Hypercoagulability due to atrial fibrillation Primary osteoarthritis Incisional hernia GERD (gastroesophageal reflux disease) Allergic rhinitis Prediabetes Abdominal wall hernia Hyperlipidemia Hypertension Pacemaker Atrial fibrillation Surgical History H/O heart surgery Hx of cholecystectomy History of tonsillectomy and adenoidectomy Family History Mother No pertinent past medical history Father No pertinent past medical history Social History household members: spouse Smoking Status: Never smoker alcohol intake: never alcohol intake frequency: holidays/special occasions only Exam Initial Vital Signs Initial Vital Signs: Vital Signs Pulse Rate 79 07/31/25 10:58 Pulse Oximetry 92 07/31/25 10:58 GENERAL: Alert 85-year-old female appears in moderate respiratory distress and in no acute distress. HEENT: Head atraumatic,EOMI, pupils reactive, face symmetric, moist mucous membranes CARDIOVASCULAR: Regular rate and rhythm without murmurs, rubs or gallops. RESPIRATORY: Decreased breath sounds bilaterally with some rales at base tachypnea ABDOMEN: Soft, nontender. Normoactive bowel sounds all 4 quadrants. No guarding or rebound. EXTREMITIES: Normal range of motion, no clubbing or edema. Neurovascularly intact NEUROLOGICAL: Alert and oriented x4.Normal gait and speech. Cranial nerves II through XII grossly intact. SKIN: Warm, dry, no laceration, no petechiae, no rashes or lesions. Course Orders Ordered: ED Orders 07/31/25 10:56 Complete Blood Count AUTO DIFF Stat Comprehensive Metabolic Panel Stat Lactate (Lactic Acid) Stat Magnesium Stat NT-proBNP (BNP-Adult 18+) Stat PTT Partial Thromboplastin Rene Stat Procalcitonin Stat Prothrombin Time INR Stat Troponin I Stat 07/31/25 10:59 Arterial Blood Gas STAT BiPAP Ventilatory Support RT PROTOCOL 07/31/25 11:00 EKG-12 Lead Stat RT Consult Eval and Treat NOW 07/31/25 11:01 XR chest 1V Stat 07/31/25 11:15 Covid-19 + FLU A/B + RSV - PCR Stat 07/31/25 11:16 Venous Blood Gas Routine 07/31/25 11:30 Blood Culture Stat 07/31/25 11:50 Urine Microscopic Stat 07/31/25 13:08 Trop I [Troponin I] Stat Acetaminophen (Acetaminophen 325 Mg Tablet) 650 mg PO Q6H PRN PRN Reason: Fever/Mild Pain (1-3) Naloxone HCl (Naloxone 0.4 Mg/Ml Vial) 0.2 mg IV Q2MIN PRN PRN Reason: Opiate Reversal Discontinued Medications Furosemide (Furosemide 40 Mg/4 Ml Vial) 40 mg IV NOW ONE Stop: 07/31/25 11:00 Last Admin: 07/31/25 11:14 Dose: 40 mg Documented By: EB Vital Signs Vital signs: Vital Signs - 8 hr 07/31/25 10:58 07/31/25 10:59 07/31/25 10:59 Temperature Pulse Rate 79 80 Respiratory Rate Blood Pressure 164/87 H Pulse Oximetry 92 94 Oxygen Delivery Method Oxygen Flow Rate Fraction of Inspired Oxygen 07/31/25 11:00 07/31/25 11:00 07/31/25 11:13 Temperature Pulse Rate 75 Respiratory Rate Blood Pressure 161/74 H 136/71 Pulse Oximetry 95 Oxygen Delivery Method Oxygen Flow Rate Fraction of Inspired Oxygen 35 07/31/25 11:40 07/31/25 13:25 07/31/25 14:00 Temperature 98 F Pulse Rate 94 H 79 76 Respiratory Rate 40 H 16 30 H Blood Pressure 161/74 H 143/70 H 163/70 H Pulse Oximetry 94 95 95 Oxygen Delivery Method CPAP Oxygen Flow Rate Fraction of Inspired Oxygen 07/31/25 14:30 Temperature Pulse Rate 72 Respiratory Rate 24 Blood Pressure Pulse Oximetry 95 Oxygen Delivery Method Nasal Cannula Oxygen Flow Rate 3 Fraction of Inspired Oxygen MDM - SOB/Dyspnea Lab Data 07/31/25 10:56 07/31/25 10:56 Labs: Lab Results 07/31/25 07/31/25 07/31/25 Range/Units 10:56 11:15 11:16 WBC 9.3 (4.5-11.0) X10^3/uL RBC 4.34 (4.0-5.2) X10^6/uL Hgb 13.1 (12.0-16.0) g/dL Hct 39.1 (36-46) % MCV 90.1 (80-100) fL MCH 30.2 (26-34) PG MCHC 33.5 (30-36) % RDW 14.9 H (11.6-14.8) % Plt Count 232 (150-400) X10^3/uL Neut % (Auto) 81.4 H (50-75) % Lymph % (Auto) 10.2 L (25-40) % [place] % (Auto) 6.7 (3-14) % Eos % (Auto) 1.1 L (2-4) % Baso % (Auto) 0.6 (0-2) % Neut # (Auto) 7600 H (1112-8703) /uL Lymph # (Auto) 1000 L (0416-6978) /uL [place] # (Auto) 600 (0-900) /uL Eos # (Auto) 100 (0-450) /uL Baso # (Auto) 100 (0-100) /uL PT 27.0 H (9.4-12.5) SECONDS INR 2.4 H (0.9-1.3) APTT 40 H (25.1-36.5) SECONDS VBG pH 7.42 (7.33-7.43) VBG pCO2 52.0 H (45-50) mmHg VBG pO2 40 (35-45) mmHg VBG HCO3 34 H (24-28) mmol/L VBG Total CO2 33 H (24-29) mmol/L VBG O2 Saturation 75 (70-75) % VBG Base Excess 8.1 H (0-4) mmol/L Sodium 139 (137-145) mmol/L Potassium 4.8 (3.4-5.1) mmol/L Chloride 98 (98-107) mmol/L Carbon Dioxide 32 (22-32) mmol/L BUN 22 H (7-17) mg/dL Creatinine 0.63 (0.52-1.04) mg/dL Estimated GFR > 60 (>60) mL/min BUN/Creatinine Ratio 34.9 H (6-22) Glucose 177 H (70-99) mg/dL Lactate 1.0 (0.7-2.1) mmol/L Calcium 9.1 (8.4-10.2) mg/dL Magnesium 2.2 (1.6-2.3) mg/dL Total Bilirubin 0.7 (0.2-1.3) mg/dL AST 27 (14-36) IU/L ALT 21 (<35) IU/L Alkaline Phosphatase 89 (38-126) U/L Troponin I 0.018 (0.01-0.034) ng/mL NT-Pro-B Natriuret Pep 1310 H (<450) pg/mL Total Protein 8.0 (6.3-8.2) g/dL Albumin 4.7 (3.5-5.0) g/dL Globulin 3.3 (1.7-4.1) g/dL Albumin/Globulin Ratio 1.4 (1.0-2.8) Procalcitonin < 0.030 (<0.5) ng/mL Urine RBC (0-5/HPF) Urine WBC (0-5/HPF) Ur Squamous Epith Cells (0-5/HPF) Urine Bacteria (None) Ur Culture Indicated? Vol Urine Centrifuged SARS-CoV-2 (PCR) Negative (Negative) Influenza A (RT-PCR) Flu a negative (NEGATIVE) Influenza B (RT-PCR) Flu b negative (NEGATIVE) RSV (PCR) Negative (Negative) 07/31/25 07/31/25 Range/Units 11:50 13:08 WBC (4.5-11.0) X10^3/uL RBC (4.0-5.2) X10^6/uL Hgb (12.0-16.0) g/dL Hct (36-46) % MCV (80-100) fL MCH (26-34) PG MCHC (30-36) % RDW (11.6-14.8) % Plt Count (150-400) X10^3/uL Neut % (Auto) (50-75) % Lymph % (Auto) (25-40) % [place] % (Auto) (3-14) % Eos % (Auto) (2-4) % Baso % (Auto) (0-2) % Neut # (Auto) (1907-2441) /uL Lymph # (Auto) (9990-4508) /uL [place] # (Auto) (0-900) /uL Eos # (Auto) (0-450) /uL Baso # (Auto) (0-100) /uL PT (9.4-12.5) SECONDS INR (0.9-1.3) APTT (25.1-36.5) SECONDS VBG pH (7.33-7.43) VBG pCO2 (45-50) mmHg VBG pO2 (35-45) mmHg VBG HCO3 (24-28) mmol/L VBG Total CO2 (24-29) mmol/L VBG O2 Saturation (70-75) % VBG Base Excess (0-4) mmol/L Sodium (137-145) mmol/L Potassium (3.4-5.1) mmol/L Chloride (98-107) mmol/L Carbon Dioxide (22-32) mmol/L BUN (7-17) mg/dL Creatinine (0.52-1.04) mg/dL Estimated GFR (>60) mL/min BUN/Creatinine Ratio (6-22) Glucose (70-99) mg/dL Lactate (0.7-2.1) mmol/L Calcium (8.4-10.2) mg/dL Magnesium (1.6-2.3) mg/dL Total Bilirubin (0.2-1.3) mg/dL AST (14-36) IU/L ALT (<35) IU/L Alkaline Phosphatase (38-126) U/L Troponin I 0.045 H (0.01-0.034) ng/mL NT-Pro-B Natriuret Pep (<450) pg/mL Total Protein (6.3-8.2) g/dL Albumin (3.5-5.0) g/dL Globulin (1.7-4.1) g/dL Albumin/Globulin Ratio (1.0-2.8) Procalcitonin (<0.5) ng/mL Urine RBC 0-1/hpf (0-5/HPF) Urine WBC 0-1/hpf (0-5/HPF) Ur Squamous Epith Cells 0-1 /hpf (0-5/HPF) Urine Bacteria None seen (None) Ur Culture Indicated? Cult not indicated Vol Urine Centrifuged 10ml (spun) SARS-CoV-2 (PCR) (Negative) Influenza A (RT-PCR) (NEGATIVE) Influenza B (RT-PCR) (NEGATIVE) RSV (PCR) (Negative) Urine Dip Bedside Urine Glucose Negative Bedside Urine Bilirubin - Negative Bedside Urine Ketone - Negative Urine Specific [place] 1.010 Bedside Urine Occult Blood +/- Bedside Urine pH 6.5 Bedside Urine Protein - Negative Bedside Urine Urobilinogen - Negative Bedside Urine Nitrite - Negative Bedside Urine Leukocytes - Negative Esterase Imaging Data Chest x-ray: Radiologist's Impression: PROCEDURE: XR CHEST 1V INDICATIONS: shortness of breath, dyspnea TECHNIQUE: One view of the chest was acquired. COMPARISON: [facility], CR, XR CHEST 1V, 07/26/2025, 10:57. FINDINGS: Surgical changes and devices: Pacemaker Lungs and pleura: Progressive pulmonary findings suggesting progressive pulmonary edema. Mediastinum: Mediastinal contours appear normal. Heart size is enlarged. Bones and chest wall: No suspicious bony lesions. Overlying soft tissues appear unremarkable. IMPRESSION: Worsening congestive heart failure. Dictated by: En Nunez M.D. on 07/31/2025 at 12:28 ECG Data Attestation: I personally reviewed and interpreted this ECG as follows: Prior ECG tracings: available for review Interpretation: Atrial fibrillation rate 83 QRS [address] changes similar to prior MDM Narrative Medical decision making narrative: MDM CC: Shortness of breath Complicating co-morbidities: Coronary artery disease atrial fibrillation on warfarin congestive heart failure chronic O2 Data collected from: Patient EMS Medical records reviewed: Recent admission ED visits Echocardiogram on 07/26/2025 EF of 50-55% Differential considered: Congestive heart failure, pneumonia viral illness pulmonary embolism coronary artery disease Exam documented above, pertinent findings include: Alert 85 with moderate respiratory distress tachypneic decreased breath sounds some mild rales no peripheral edema Lab Test results independently reviewed as above. Pertinent findings: CBC no anemia CMP no electrolyte abnormality no BROOK Troponin0.018-->0.045 Independently reviewed EKG as above Atrial fibrillation no RVR Imaging studies independently reviewed: Chest x-ray worsening congestive heart failure Consultations: Dr. Ruffin heavily accepts Treatments: BiPAP Lasix Re-evaluations: 1252 patient reassessed as seem to have BiPAP taken off. She is awake alert overall doing much better she has urinated quite a bit Patient has urinated quite a bit she is asking for the BiPAP to come off. She seems to be tolerating in. Discussion: Patient 85-year-old female history of congestive heart failure presents today with sudden onset of pulmonary edema. She required nitro Lasix and BiPAP but did ultimately quickly turned around. She looks much better. She is tolerating off BiPAP. Troponins are negative. Last time they were up and positive. At this time will be admitted to observation for close monitoring diuresis Discharge Plan Departure Patient Disposition: Admitted as Observation Clinical Impression: Congestive heart failure Admit Date/Time: 07/31/25 14:50 Admit Provider: Robinson Ruffin
[2025-07-31 11:13] LABS: PTT Partial Thromboplastin Tim 40 SECONDS (25.1-36.5)
[2025-07-31 11:14] LABS: Alanine Aminotransferase 21 IU/L (<35); Albumin 4.7 g/dL (3.5-5.0); Albumin Globulin Ratio 1.4 (1.0-2.8); Alkaline Phosphatase 89 U/L (38-126); Blood Urea Nitrogen 22 mg/dL (7-17); Calcium 9.1 mg/dL (8.4-10.2); Carbon Dioxide 32 mmol/L (22-32); Chloride 98 mmol/L (98-107); Estimated Glomerular Filt Rate > 60 mL/min (>60); Globulin 3.3 g/dL (1.7-4.1); Glucose 177 mg/dL (70-99); HEMOLYSIS < 15 (0-50); Magnesium 2.2 mg/dL (1.6-2.3); Potassium 4.8 mmol/L (3.4-5.1); Sodium 139 mmol/L (137-145); Total Protein 8.0 g/dL (6.3-8.2)
[2025-07-31] MEDS: FUROSEMIDE 40 MG/4 ML VIAL IV (11:14)
[2025-07-31 11:16] LABS: Lactate (Lactic Acid) 1.0 mmol/L (0.7-2.1)
[2025-07-31 11:21] LABS: Base Excess VBG 8.1 mmol/L (0-4); HCO3 VBG 34 mmol/L (24-28); Oxygen Saturation VBG 75 % (70-75); PCO2 VBG 52.0 mmHg (45-50); PO2 VBG 40 mmHg (35-45); Total CO2 VBG 33 mmol/L (24-29); pH VBG 7.42 (7.33-7.43)
[2025-07-31 11:27] LABS: NT-proBNP (BNP-Adult 18+) 1310 pg/mL (<450); Troponin I 0.018 ng/mL (0.01-0.034)
[2025-07-31 11:31] LABS: Procalcitonin < 0.030 ng/mL (<0.5)
[2025-07-31 12:14] LABS: Culture Indicated Urine Cult Not Indicated
[2025-07-31 12:19] LABS: Influenza A - CEPHEID Flu A NEGATIVE (NEGATIVE); Influenza B - CEPHEID Flu B NEGATIVE (NEGATIVE)
[2025-07-31 12:20] LABS: COVID-19 CEPHEID 4-PLEX PCR Negative (Negative)
[2025-07-31 13:43] LABS: Troponin I 0.045 ng/mL (0.01-0.034)
--- NOTE | 2025-07-31 15:46 | PM.HP.1 ---
History of Present Illness History of Present Illness Date Patient Seen: 07/31/25 Time Patient Seen: 17:28 Chief complaint: SOB PFSH Medical History Subclinical hyperthyroidism Hiatal hernia Heart murmur Adenomatous colon polyp Abnormal colonoscopy Coronary atherosclerosis Hypercoagulability due to atrial fibrillation Primary osteoarthritis Incisional hernia GERD (gastroesophageal reflux disease) Allergic rhinitis Prediabetes Abdominal wall hernia Hyperlipidemia Hypertension Pacemaker Atrial fibrillation Surgical History H/O heart surgery Hx of cholecystectomy History of tonsillectomy and adenoidectomy Family History Mother No pertinent past medical history Father No pertinent past medical history Social History household members: spouse alcohol intake: never Meds Home Medications and Allergies Home Medications ?Medication ?Instructions ?Recorded ?Confirmed ?Type warfarin 7.5 mg tablet (Coumadin) 7.5 mg PO QDAY ##0 11/29/12 07/26/25 History calcium carbonate 650 mg PO PRN PRN Acid Reflux ##0 02/12/17 07/26/25 History glucosamine 1 ea PO DAILY ##0 02/12/17 07/26/25 History sulfate-methylsulfonylmethane 250 mg-250 mg capsule carvedilol 12.5 mg tablet 12.5 mg PO BID 03/13/18 07/26/25 History carboxymethylcellulose sodium 1 % 1 drp ophthalmic (eye) .HS PRN Dry 01/19/23 07/26/25 History eye liquid gel drops Eyes cholecalciferol (vitamin D3) 25 25 mcg PO DAILY 01/19/23 07/26/25 History mcg (1,000 unit) tablet docusate sodium 100 mg capsule 300 mg PO BID 01/19/23 07/26/25 History losartan 50 mg tablet 50 mg PO BID 01/19/23 07/26/25 History vitamins A,C,Z-tozm-osnyks 4,296 1 cap PO BID 01/19/23 07/26/25 History mcg-226 mg-90 mg capsule (PreserVision AREDS) furosemide 20 mg tablet (Lasix) 20 mg PO DAILY #30 tabs 06/20/24 07/26/25 Rx clopidogrel 75 mg tablet 75 mg PO DAILY 30 days #30 tabs 07/27/25 Rx pantoprazole 40 mg tablet,delayed 40 mg PO DAILY #30 tabs 07/27/25 Rx release Allergies Allergy/AdvReac Type Severity Reaction Status Date / Time No Known Drug Allergies Allergy Verified 07/31/25 10:51 Review of Systems Review of Systems Narrative: All else reviewed and otherwise unremarkable except as noted in the history and physical. Exam Vital Signs (past 8 hours): - 07/31/25 10:58 07/31/25 10:59 07/31/25 10:59 Temperature Pulse Rate 79 80 Respiratory Rate Blood Pressure 164/87 H Pulse Oximetry 92 94 Oxygen Delivery Method Fraction of Inspired Oxygen 07/31/25 11:00 07/31/25 11:00 07/31/25 11:13 Temperature Pulse Rate 75 Respiratory Rate Blood Pressure 161/74 H 136/71 Pulse Oximetry 95 Oxygen Delivery Method Fraction of Inspired Oxygen 35 07/31/25 11:40 07/31/25 13:25 07/31/25 14:00 Temperature 98 F Pulse Rate 94 H 79 76 Respiratory Rate 40 H 16 30 H Blood Pressure 161/74 H 143/70 H 163/70 H Pulse Oximetry 94 95 95 Oxygen Delivery Method CPAP Fraction of Inspired Oxygen Fraction of Inspired Oxygen 35 Oxygen Delivery Method CPAP Narrative Exam Narrative: NAD, alert and oriented, fluent speech, calm. On O2. 2 L nasal cannula. Normocephalic skull, EOMI, anicteric sclera, symmetric pupils. Oropharynx unremarkable, no droop. Neck supple, midline trachea, no adenopathy. Lungs clear, normal rate and effort. Heart regular, no murmur gallop or rub. Abdomen is soft, non distended and non tender. Extremities are free of edema. Skin is free of rash or lesions. Joints are not swollen or deformed. Judgment appears to be normal. Objective ECG Impression: Intervals [place] Rate: 83 P: [place]: QRS: 94 QRSD: 78 T: 0 QT: 380 QTc: 446 Interpretive Statements Atrial fibrillation Rightward axis Low voltage QRS Septal infarct , age undetermined Imaging Multiple studies:: Radiologist's impression: Chest x-ray: Worsening congestive heart failure. Echo: nterpretation Summary The study quality was technically difficult. The ejection fraction is estimated to be 50-55%. Diastolic function could not be accurately assessed due to atrial fibrillation. The right ventricle is normal in size and function. There is marked biatrial enlargement. There is moderate mitral stenosis. There is mild aortic stenosis. There is moderate tricuspid regurgitation. The right ventricular systolic pressure is estimated to be at least 75 mmHg based on an estimated right atrial pressure of 15 mm Hg. There is a small pericardial effusion noted. There are no echocardiographic indications of cardiac tamponade. Compared to the prior study 01/26/2023, the ejection fraction has decreased, the mitral valve and aortic gradients have increased, the pulmonary artery systolic pressure has also increased and the pericardial effusion is now. Labs 07/31/25 10:56 07/31/25 10:56 Labs: Laboratory Results - last 24 hr 07/31/25 07/31/25 07/31/25 10:56 11:15 11:16 WBC 9.3 RBC 4.34 Hgb 13.1 Hct 39.1 MCV 90.1 MCH 30.2 MCHC 33.5 RDW 14.9 H Plt Count 232 Neut % (Auto) 81.4 H Lymph % (Auto) 10.2 L [place] % (Auto) 6.7 Eos % (Auto) 1.1 L Baso % (Auto) 0.6 Neut # (Auto) 7600 H Lymph # (Auto) 1000 L [place] # (Auto) 600 Eos # (Auto) 100 Baso # (Auto) 100 PT 27.0 H INR 2.4 H APTT 40 H VBG pH 7.42 VBG pCO2 52.0 H VBG pO2 40 VBG HCO3 34 H VBG Total CO2 33 H VBG O2 Saturation 75 VBG Base Excess 8.1 H Sodium 139 Potassium 4.8 Chloride 98 Carbon Dioxide 32 BUN 22 H Creatinine 0.63 Estimated GFR > 60 BUN/Creatinine Ratio 34.9 H Glucose 177 H Lactate 1.0 Calcium 9.1 Magnesium 2.2 Total Bilirubin 0.7 AST 27 ALT 21 Alkaline Phosphatase 89 Troponin I 0.018 NT-Pro-B Natriuret Pep 1310 H Total Protein 8.0 Albumin 4.7 Globulin 3.3 Albumin/Globulin Ratio 1.4 Procalcitonin < 0.030 Urine RBC Urine WBC Ur Squamous Epith Cells Urine Bacteria Ur Culture Indicated? Vol Urine Centrifuged SARS-CoV-2 (PCR) Negative Influenza A (RT-PCR) Flu a negative Influenza B (RT-PCR) Flu b negative RSV (PCR) Negative 07/31/25 07/31/25 11:50 13:08 WBC RBC Hgb Hct MCV MCH MCHC RDW Plt Count Neut % (Auto) Lymph % (Auto) [place] % (Auto) Eos % (Auto) Baso % (Auto) Neut # (Auto) Lymph # (Auto) [place] # (Auto) Eos # (Auto) Baso # (Auto) PT INR APTT VBG pH VBG pCO2 VBG pO2 VBG HCO3 VBG Total CO2 VBG O2 Saturation VBG Base Excess Sodium Potassium Chloride Carbon Dioxide BUN Creatinine Estimated GFR BUN/Creatinine Ratio Glucose Lactate Calcium Magnesium Total Bilirubin AST ALT Alkaline Phosphatase Troponin I 0.045 H NT-Pro-B Natriuret Pep Total Protein Albumin Globulin Albumin/Globulin Ratio Procalcitonin Urine RBC 0-1/hpf Urine WBC 0-1/hpf Ur Squamous Epith Cells 0-1 /hpf Urine Bacteria None seen Ur Culture Indicated? Cult not indicated Vol Urine Centrifuged 10ml (spun) SARS-CoV-2 (PCR) Influenza A (RT-PCR) Influenza B (RT-PCR) RSV (PCR) Assessment & Plan Assessment & Plan narrative: 1. NSTEMI, active. 2. Pulmonary edema secondary to acute systolic heart failure. Improved. 3. AFib on chronic warfarin, stable. 4. Hypertension, stable. 5. Hyperlipidemia, stable. 6. Distant small-bowel obstruction, stable. 7. Chronic hypoxic respiratory failure, on 2 L of oxygen at home. PLAN: -we will diurese with Lasix 40 IV q.12 overnight, and likely increase outpatient dosing of Lasix tomorrow. She has an appointment with her rivet tester this Tuesday, Dr. Montgomery at [facility]. Full code. Has been his proxy decision maker. Anticipate 1 night in the hospital, supports observation status. Time-Based Coding :: 35 min spent with patient and on the chart (including review of chart, obtaining history, exam, reviewing outside data, placing orders, documenting exam and treatment plan, and counseling patient) on 07/31. Quality MIPS - Admit I confirm the patient?s Advance Care Plan is present, Code status is documented, Surrogate decision maker is in patient?s record [If Yes, STOP here]: Yes MIPS - Meds 'Current medications' to include all prescriptions, [id number] products, herbals, cannabis/cannabidiol products, and vitamin/mineral/dietary (nutritional) supplements. I have utilized all available resources to obtain, update, or review the patient?s current medications. [If Yes, STOP here]: Yes
[2025-07-31 20:05] LABS: Troponin I 0.050 ng/mL (0.01-0.034)
[2025-07-31] MEDS: LOSARTAN 50 MG TABLET PO (20:44)
[2025-07-31] MEDS: SODIUM CHLORIDE 0.9% FLUSH 10 ML IV (20:45)
--- NOTE | 2025-07-31 23:13 | PC.NURSE ---
Patient is alert and oriented. Breath sounds CTA; on oxygen at 3L/min per [place] (baseline) with sat of 98% and denies feeling SOB at rest (not assessed with activity as not out of bed). Continuous oximetry used to monitor for hypoxia. HR irregular w/telemetry reading of afib CVR (has history of afib). Denied nausea. BT hyperactive. Has purewick on as had Lasix earlier in ER. Is able to turn herself in bed. Gait not assessed as not out of bed at this time but reportedly uses walker at night and cane when going a distance at home. Bilateral calf SCD's applied at shift changed. Skin in good condition but is dry and flaky especially in LE. Denied pain. Fall risk score is high and bed alarm is activated.
[2025-08-01] VITALS: BP 138/63; PULSE 86; RESP 12; TEMP 37.1; O2SAT 98
[2025-08-01 04:12] LABS: Add Manual Diff / Slide Review NO; Hematocrit 34.5 % (36-46); Hemoglobin 11.5 g/dL (12.0-16.0); Lymphocytes Absolute Auto 1200 /uL (1100-4500); Mean Corpuscular HGB Conc 33.2 % (30-36); Mean Corpuscular Hemoglobin 29.9 PG (26-34); Mean Corpuscular Volume 90.1 fL (80-100); Platelet Count 190 X10^3/uL (150-400)
[2025-08-01 04:20] LABS: INR 2.4 (0.9-1.3); Prothrombin Time 26.6 SECONDS (9.4-12.5)
[2025-08-01 04:24] LABS: Blood Urea Nitrogen 26 mg/dL (7-17); Calcium 8.9 mg/dL (8.4-10.2); Carbon Dioxide 33 mmol/L (22-32); Chloride 99 mmol/L (98-107); Estimated Glomerular Filt Rate > 60 mL/min (>60); Glucose 159 mg/dL (70-99); HEMOLYSIS < 15 (0-50); Potassium 4.3 mmol/L (3.4-5.1); Sodium 137 mmol/L (137-145)
[2025-08-01] MEDS: PANTOPRAZOLE DR 40 MG TABLET PO (05:58)
[2025-08-01 06:01] VITALS: BP 128/74; PULSE 80; RESP 34; TEMP 37.4; O2SAT 96
[2025-08-01 08:00] VITALS: BP 158/72; PULSE 77; RESP 34; TEMP 36.7; O2SAT 98
[2025-08-01 09:43] LABS: Troponin I 0.018 ng/mL (0.01-0.034)
[2025-08-01] MEDS: CLOPIDOGREL 75 MG TABLET PO (09:50)
[2025-08-01] MEDS: LOSARTAN 50 MG TABLET PO (09:50)
[2025-08-01] MEDS: SODIUM CHLORIDE 0.9% FLUSH 10 ML IV (09:51)
--- NOTE | 2025-08-01 10:17 | PM.DS.1 ---
History of Present Illness History of Present Illness Chief complaint: SOB Narrative: HPI: Patient was a 85-year-old female recently discharge with congestive heart failure. She was sent home in returned on the day of admission with acute dyspnea was found to have flash pulmonary edema. She had echo findings consistent with diastolic heart failure and denied any concurrent chest pain. She improved rapidly with diuresis. She was on chronic home oxygen at 2 L. she was followed by Cardiology, Dr. Montgomery at [facility]. ROS: All else reviewed and otherwise unremarkable except as noted in the history and physical. Discharge Providers Provider Date of admission: 07/31/25 14:50 Discharge Date: 08/01/25 Primary care physician: Temi Feliciano PA-C Consults: 07/31/25 20:59 Consult to Pharmacy Routine Comment: per fall assessment Discharge provider: Robinson Ruffin MD Summary Hospital Course Discharge Diagnosis: 1. Pulmonary edema secondary to acute systolic heart failure. Improved. 2. AFib on chronic warfarin, stable. 3. Hypertension, stable. 4. Hyperlipidemia, stable. 5. Distant small-bowel obstruction, stable. 6. Chronic hypoxic respiratory failure, on 2 L of oxygen at home. 7. Mild troponin elevation. Hospital Course: She was admitted and diuresed and quickly returned back to her baseline home oxygen setting of 2 L and was otherwise comfortable. She would clear lungs and no peripheral edema. She was felt to be stable for discharge with addition of oral Lasix and does have culture cardiology follow up 1 day following her discharge. Status at Discharge Cognitive/behavioral status at discharge: oriented Functional status at discharge: uses cane/walker Overall status at discharge: patient is back to baseline Time Spent with Patient Time spent: Greater than 30 minutes Exam Vital Signs (past 8 hours): - 08/01/25 06:01 08/01/25 07:00 08/01/25 08:00 Temperature 99.3 F 98.1 F Pulse Rate 80 77 Respiratory Rate 34 H 34 H Blood Pressure 128/74 158/72 H Pulse Oximetry 96 98 Oxygen Delivery Method Nasal Cannula Oxygen Flow Rate 3 3 Fraction of Inspired Oxygen 35 Oxygen Delivery Method Nasal Cannula Oxygen Flow Rate 3 Narrative Exam Narrative: NAD, alert and oriented. Fluent speech. 2L (chronic) Lungs are clear, normal rate and effort. Heart is regular, no murmur gallop or rub. Abdomen is soft, non distended. Extremities are free of edema. Objective ECG Impression: Intervals [place] Rate: 83 P: GA: QRS: 94 QRSD: 78 T: 0 QT: 380 QTc: 446 Interpretive Statements Atrial fibrillation Rightward axis Low voltage QRS Septal infarct , age undetermined Imaging Multiple studies: : Radiologist's impression: Chest x-ray: Worsening congestive heart failure. Echo: Interpretation Summary The study quality was technically difficult. The ejection fraction is estimated to be 50-55%. Diastolic function could not be accurately assessed due to atrial fibrillation. The right ventricle is normal in size and function. There is marked biatrial enlargement. There is moderate mitral stenosis. There is mild aortic stenosis. There is moderate tricuspid regurgitation. The right ventricular systolic pressure is estimated to be at least 75 mmHg based on an estimated right atrial pressure of 15 mm Hg. There is a small pericardial effusion noted. There are no echocardiographic indications of cardiac tamponade. Compared to the prior study 01/26/2023, the ejection fraction has decreased, the mitral valve and aortic gradients have increased, the pulmonary artery systolic pressure has also increased and the pericardial effusion is now. Labs 08/01/25 03:48 08/01/25 03:48 Labs: Laboratory Results - last 24 hr 07/31/25 07/31/25 07/31/25 10:56 11:15 11:16 WBC 9.3 RBC 4.34 Hgb 13.1 Hct 39.1 MCV 90.1 MCH 30.2 MCHC 33.5 RDW 14.9 H Plt Count 232 Neut % (Auto) 81.4 H Lymph % (Auto) 10.2 L [place] % (Auto) 6.7 Eos % (Auto) 1.1 L Baso % (Auto) 0.6 Neut # (Auto) 7600 H Lymph # (Auto) 1000 L [place] # (Auto) 600 Eos # (Auto) 100 Baso # (Auto) 100 PT 27.0 H INR 2.4 H APTT 40 H VBG pH 7.42 VBG pCO2 52.0 H VBG pO2 40 VBG HCO3 34 H VBG Total CO2 33 H VBG O2 Saturation 75 VBG Base Excess 8.1 H Sodium 139 Potassium 4.8 Chloride 98 Carbon Dioxide 32 BUN 22 H Creatinine 0.63 Estimated GFR > 60 BUN/Creatinine Ratio 34.9 H Glucose 177 H Lactate 1.0 Calcium 9.1 Magnesium 2.2 Total Bilirubin 0.7 AST 27 ALT 21 Alkaline Phosphatase 89 Troponin I 0.018 NT-Pro-B Natriuret Pep 1310 H Total Protein 8.0 Albumin 4.7 Globulin 3.3 Albumin/Globulin Ratio 1.4 Procalcitonin < 0.030 Urine RBC Urine WBC Ur Squamous Epith Cells Urine Bacteria Ur Culture Indicated? Vol Urine Centrifuged SARS-CoV-2 (PCR) Negative Influenza A (RT-PCR) Flu a negative Influenza B (RT-PCR) Flu b negative RSV (PCR) Negative 07/31/25 07/31/25 07/31/25 11:50 13:08 19:14 WBC RBC Hgb Hct MCV MCH MCHC RDW Plt Count Neut % (Auto) Lymph % (Auto) [place] % (Auto) Eos % (Auto) Baso % (Auto) Neut # (Auto) Lymph # (Auto) [place] # (Auto) Eos # (Auto) Baso # (Auto) PT INR APTT VBG pH VBG pCO2 VBG pO2 VBG HCO3 VBG Total CO2 VBG O2 Saturation VBG Base Excess Sodium Potassium Chloride Carbon Dioxide BUN Creatinine Estimated GFR BUN/Creatinine Ratio Glucose Lactate Calcium Magnesium Total Bilirubin AST ALT Alkaline Phosphatase Troponin I 0.045 H 0.050 H NT-Pro-B Natriuret Pep Total Protein Albumin Globulin Albumin/Globulin Ratio Procalcitonin Urine RBC 0-1/hpf Urine WBC 0-1/hpf Ur Squamous Epith Cells 0-1 /hpf Urine Bacteria None seen Ur Culture Indicated? Cult not indicated Vol Urine Centrifuged 10ml (spun) SARS-CoV-2 (PCR) Influenza A (RT-PCR) Influenza B (RT-PCR) RSV (PCR) 08/01/25 08/01/25 03:48 09:07 WBC 8.0 RBC 3.83 L Hgb 11.5 L Hct 34.5 L MCV 90.1 MCH 29.9 MCHC 33.2 RDW 14.5 Plt Count 190 Neut % (Auto) 70.4 Lymph % (Auto) 15.0 L [place] % (Auto) 11.8 Eos % (Auto) 1.6 L Baso % (Auto) 1.2 Neut # (Auto) 5600 Lymph # (Auto) 1200 [place] # (Auto) 900 Eos # (Auto) 100 Baso # (Auto) 100 PT 26.6 H INR 2.4 H APTT VBG pH VBG pCO2 VBG pO2 VBG HCO3 VBG Total CO2 VBG O2 Saturation VBG Base Excess Sodium 137 Potassium 4.3 Chloride 99 Carbon Dioxide 33 H BUN 26 H Creatinine 0.62 Estimated GFR > 60 BUN/Creatinine Ratio 41.9 H Glucose 159 H Lactate Calcium 8.9 Magnesium Total Bilirubin AST ALT Alkaline Phosphatase Troponin I 0.018 NT-Pro-B Natriuret Pep Total Protein Albumin Globulin Albumin/Globulin Ratio Procalcitonin Urine RBC Urine WBC Ur Squamous Epith Cells Urine Bacteria Ur Culture Indicated? Vol Urine Centrifuged SARS-CoV-2 (PCR) Influenza A (RT-PCR) Influenza B (RT-PCR) RSV (PCR) PFSH Medical History Subclinical hyperthyroidism Hiatal hernia Heart murmur Adenomatous colon polyp Abnormal colonoscopy Coronary atherosclerosis Hypercoagulability due to atrial fibrillation Primary osteoarthritis Incisional hernia GERD (gastroesophageal reflux disease) Allergic rhinitis Prediabetes Abdominal wall hernia Hyperlipidemia Hypertension Pacemaker Atrial fibrillation Surgical History H/O heart surgery Hx of cholecystectomy History of tonsillectomy and adenoidectomy Family History Mother No pertinent past medical history Father No pertinent past medical history Social History household members: spouse Smoking Status: Never smoker alcohol intake: never Discharge Assessment & Plan Assessment and Plan Assessment: 1. Pulmonary edema secondary to acute systolic heart failure. Improved. 2. AFib on chronic warfarin, stable. 3. Hypertension, stable. 4. Hyperlipidemia, stable. 5. Distant small-bowel obstruction, stable. 6. Chronic hypoxic respiratory failure, on 2 L of oxygen at home. 7. Mild troponin elevation. Plan of Treatment: Stable for discharge with the addition of Lasix 20 mg p.o. daily, follow up with her vat house laborer Dr. Montgomery tomorrow. Discharge Plan Discharge Plan Patient Disposition: Home Provider Discharge Comment: Stable for discharge. She was an appointment with her vat house laborer, Dr. Montgomery from [facility], tomorrow. Discharge orders & Medications Prescriptions: New furosemide [Lasix] 20 mg tablet 20 mg PO DAILY Qty: 30 2RF Continued carvedilol 12.5 mg tablet 12.5 mg PO BID warfarin [Coumadin] 7.5 MG tablet 7.5 mg PO QDAY Qty: 0 Rx Instructions: 7.5 mg MON, TUE, TUESDAY 5mg tues, thrus, sat sun calcium carbonate 650 MG tablet 650 mg PO PRN PRN (Reason: Acid Reflux) Qty: 0 losartan 50 mg Tablet 50 mg PO BID carboxymethylcellulose sodium 1 % Drops, Liquid Gel 1 drp OPHTHALMIC (EYE) .HS PRN (Reason: Dry Eyes) docusate sodium 100 mg Capsule 300 mg PO BID Rx Instructions: Take 3 caps twice a day. clopidogrel 75 mg Tablet 75 mg PO DAILY 30 Days Qty: 30 0RF pantoprazole 40 mg tablet,delayed release (DR/EC) 40 mg PO DAILY Qty: 30 0RF Follow up/Referrals: Temi Feliciano, PA-C [Primary Care Provider, Medical] Diet/Activity/Treatments Diet: Low-sodium Diet comment: Low salt diet Activity: As tolerated. Visit Report/Discharge Packet Instructions: DI for Heart Failure Stand Alone Forms: Patient Portal/API Discharge Data Primary Care Provider: Temi Feliciano Attending Provider: Robinson Ruffin Admit Date/Time: 07/31/25 14:50
--- NOTE | 2025-08-01 10:48 | PC.NURSE ---
Discharge instructions given and understood. PIV and telemetry device removed. Pt discharged with pt's via private vehicle, escorted to the entrance via wheelchair.
--- NOTE | 2025-08-01 14:21 | CM.DANOTE ---
Initial DCP Assessment Visit Note Reviewed EMR and team rounds for pt's medical status and updates. Met with pt/spouse at bedside to introduce self and role. Pt was found to be alert/oriented, dressed, and was getting ready to d/c. Pt resides modified independently with her spouse in their own home here in [place]. Her spouse will plan to transport her home. She declined any CM d/c assitance or resources at this time. Payor: Medicare PCP: Temi Coates Pt is a 85 year-old F pt with a PMH of Afib and CHF. She presented to the ED via EMS with acute respiratory failure, SOB, and required BiPAP/breathing treatments right away from EMS. Chest x-ray in the ED showed worsening heart failure, and pulmonary edema. Plan was made to admit for monitoring and diuresis. Today, she felt much improved, and expressed wanting to return home earlier this am. She will f/u OP with her PCP. Discharge Planning/Care Management CM Discharge Assessment Start: 07/31/25 14:58 Freq: Status: Discharge Protocol: Document 08/01/25 14:19 DPL (Rec: 08/01/25 14:21 DPL [id number]) Discharge Planning Assessment Assigned Discharge [employer] Provider Temi Coates Insurance Medicare Advance Directives? No Advance Directives No on File History Provided By Patient,Family Member,Medical Record Has Patient been No admitted in last 30 days? Prior Living House Arrangements Household Members spouse Type of Relies on Others transporation used prior to admit Independent with ADL No: modified independent with a walker 's Is patient alert and Yes oriented? Comment N/A Caregiver for No Another DME Already Rented / FWW / Walker,Cane Owned Comment Home Discharge Plan Home Transportation family in POV Arrangement Referrals Initiated [facility] If patient plan is Yes SNF: Has PASSR been completed? Whiteboard Updated Yes in Patient Room with name and ext. # of Social Media Designer Review Status In Process Please Provide Date 08/01/25 Initial DC Assessment Was Performed
== END 2025-08-01 10:49 | disposition home or self-care (01) ==
LOC: ED 10:59 → AC 14:51
PROVIDERS: Admitting Provider Hospitalist; Emergency Provider Emergency Medicine; PCP Physician Assistant; Referring Provider Emergency Medicine; Visit Provider Hospitalist
DX: I11.0 Hypertensive heart disease with heart failure (principal); I50.21 Acute systolic (congestive) heart failure; J96.11 Chronic respiratory failure with hypoxia; I48.91 Unspecified atrial fibrillation; I25.10 Atherosclerotic heart disease of native coronary artery without angina pectoris; E78.5 Hyperlipidemia, unspecified; K56.699 Other intestinal obstruction unspecified as to partial versus complete obstruction; Z79.01 Long term (current) use of anticoagulants; Z95.0 Presence of cardiac pacemaker; Z99.81 Dependence on supplemental oxygen; R79.89 Other specified abnormal findings of blood chemistry
CPT/HCPCS: 36415; 71045; 80048; 80053; 81003; 81015; 82805; 83605; 83735; 83880; 84145; 84484; 85025; 85610; 85730; 87040; 87637; 93005; 94660; 96374; 99285; G0378; A9270; J1938

== ENCOUNTER → 2025-08-16 12:38 | Outpatient (CLI) | payer MEDICARE, OTHER, SELFPAY ==
[2025-07-31 11:13] VITALS: PULSE 68; RESP 28; O2SAT 96
[2025-07-31 17:36] VITALS: BMI 31.8
[2025-08-16 14:01] LABS: Blood Urea Nitrogen 32 mg/dL (7-17); Calcium 9.1 mg/dL (8.4-10.2); Carbon Dioxide 32 mmol/L (22-32); Chloride 97 mmol/L (98-107); Estimated Glomerular Filt Rate > 60 mL/min (>60); Glucose 274 mg/dL (70-99); HEMOLYSIS < 15 (0-50); Potassium 4.4 mmol/L (3.4-5.1); Sodium 139 mmol/L (137-145)
== END ==
PROVIDERS: PCP Physician Assistant; Referring Provider Internal Medicine Cardiovascular Disease; Visit Provider Internal Medicine Cardiovascular Disease
DX: I50.32 Chronic diastolic (congestive) heart failure (principal)
CPT/HCPCS: 36415; 80048